=== PATIENT | female | born 1960 | race Caucasian/White ===

== ENCOUNTER 2020-05-01 14:41 | Emergency (ER) | payer OTHER, SELFPAY ==
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
[2020-05-01 14:51] VITALS: BP 140/82; PULSE 88; RESP 14; TEMP 36.6; O2SAT 100
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
== END 2020-05-01 16:00 | disposition home or self-care (01) ==
PROVIDERS: Emergency Provider Nurse Practitioner; PCP Internal Medicine
DX: S82.832A Other fracture of upper and lower end of left fibula, initial encounter for closed fracture (principal); V18.4XXA Pedal cycle driver injured in noncollision transport accident in traffic accident, initial encounter; F41.9 Anxiety disorder, unspecified; F32.9 Major depressive disorder, single episode, unspecified; K21.9 Gastro-esophageal reflux disease without esophagitis; E03.9 Hypothyroidism, unspecified; J45.909 Unspecified asthma, uncomplicated
CPT/HCPCS: 29515; 73610; 99214; G0463

== ENCOUNTER 2021-04-30 08:33 | Outpatient (CLI) | payer BC, SELFPAY ==
[2021-04-30 10:00] LABS: SARS-CoV-2 RNA PCR Negative (Negative)
== END 2021-04-30 08:34 | disposition home or self-care (01) ==
PROVIDERS: PCP Internal Medicine; Visit Provider Nurse Practitioner Pediatrics
DX: Z20.822 Contact with and (suspected) exposure to COVID-19 (principal)
CPT/HCPCS: C9803; U0003; U0005

== ENCOUNTER 2022-03-01 16:00 | Emergency (ER) | payer BC, SELFPAY ==
[2022-03-01 16:08] VITALS: BP 146/77; PULSE 89; RESP 16; TEMP 36.6; O2SAT 100
--- NOTE | 2022-03-01 16:13 | ED.SKABFB ---
HPI - Skin/Abscess/Foreign Bdy General Chief complaint: Skin/Abscess/Foreign Body Stated complaint: body rash Source: patient, RN notes reviewed and old records reviewed Mode of arrival: ambulatory Limitations: no limitations History of Present Illness HPI narrative: 61 year old female who presents to [facility] care with complaint of rash which was first noted on the 03 of January. Patient reports that she went on a medical mission trip from December 19- in [facility]. While in [facility] she took antimalaria drug Malarone which she took from to the 02 of January. She reports that is the third mission trip she has been on and the 3rd time she has been on Malarone and never with any problems previously. Patient reports that she broke out with rash on the 03 of January. Patient has been treated with Medrol dose pack and last was treated on the 04 of February with prednisone but once down to 10 mg daily the rash then reappeared on Monday. Patient has been taking Benadryl for the itching and has used triamcinolone ointment to rash.Patient denies any history of celiac disease. MD complaint: rash Onset (ago): week(s) (waxing and waning since 03 of January treated with medrol and prednisone) Location: generalized Treatments prior to arrival: Benadryl and other (triamcinolone ointment) Related Data Home Medications Medication Instructions Recorded Confirmed duloxetine 30 mg capsule,delayed 30 mg PO DAILY 05/01/20 03/01/22 release (Cymbalta) duloxetine 60 mg capsule,delayed 60 mg PO DAILY 05/01/20 03/01/22 release (Cymbalta) levothyroxine 100 mcg capsule 100 mcg PO DAILY 05/01/20 03/01/22 montelukast 10 mg tablet 10 mg PO DAILY 05/01/20 03/01/22 (Singulair) aspirin 81 mg capsule 81 mg PO DAILY 03/01/22 03/01/22 famotidine 20 mg tablet 20 mg PO DAILY 03/01/22 03/01/22 triamcinolone acetonide 0.1 % 0.1 applic topical DIRECTED 03/01/22 03/01/22 topical cream Allergies Allergy/AdvReac Type Severity Reaction Status Date / Time bupropion [From Wellbutrin] Allergy Rash Verified 05/01/20 15:09 carbamazepine [From Tegretol] Allergy BARBIE Verified 05/01/20 15:09 CHARI SYNDROME sulfamethoxazole Allergy Rash Verified 05/01/20 15:09 [From Bactrim] terbinafine [From Lamisil] Allergy Rash Verified 05/01/20 15:09 tramadol Allergy Dizziness Verified 05/01/20 15:09 trimethoprim [From Bactrim] Allergy Rash Verified 05/01/20 15:09 Review of Systems Review of Systems: CONSTITUTIONAL: Denies fever, chills, or sweats. EYES: Denies visual changes, redness, or discharge. ENT: Denies rhinorrhea, congestion, sore throat, or otalgia. CARDIOVASCULAR: Denies chest pain, palpitations, or edema. RESPIRATORY: Denies cough or dyspnea. GASTROINTESTINAL: Denies and pain, nausea, vomiting, or diarrhea. GENITOURINARY: Denies dysuria or hematuria. SKIN: Positive for red scattered blanchable rash with itching to trunk posterior upper legs, lower back MUSCULOSKELETAL: Denies back pain, joint pain, or myalgia. NEUROLOGIC: Denies headache, numbness, or weakness. PSYCHIATRIC: Positive for history of anxiety or depression. All systems reviewed & are unremarkable except as noted in HPI and below PMFSH Past Medical History Medical History (Updated 03/03/22 @ 13:13 by Judy Schultz NP) Anxiety Asthma Depression Hypothyroid Open fibular fracture surgical reduction Surgical History Surgical History History of appendectomy History of exploratory laparotomy bowel obstructin/ ileus Family History Family History Mother Hypertension Other Heart disease Social History Social History Smoking status: Never smoker Alcohol intake: current Alcohol use details: rare use Substance use type: does not use Living arrangements: with family Gender identity (if verbal
== END 2022-03-01 17:20 | disposition home or self-care (01) ==
PROVIDERS: Emergency Provider Registered Nurse; PCP Internal Medicine
DX: L25.9 Unspecified contact dermatitis, unspecified cause (principal); E03.9 Hypothyroidism, unspecified; J45.909 Unspecified asthma, uncomplicated; Z79.82 Long term (current) use of aspirin; F41.9 Anxiety disorder, unspecified; F32.A Depression, unspecified
CPT/HCPCS: 99213; G0463

== ENCOUNTER 2024-09-25 16:01 | Outpatient (CLI) | payer BC, SELFPAY ==
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
== END 2024-09-25 16:02 | disposition home or self-care (01) ==
PROVIDERS: Referring Provider Internal Medicine
DX: M25.551 Pain in right hip (principal)
CPT/HCPCS: 73070

== ENCOUNTER → 2024-11-13 14:17 | Outpatient (CLI) | payer BC, SELFPAY ==
--- NOTE | ~2024-11-13 | XR_ITS ---
EXAMINATION:XR cervical spine 4-5V DATE: 11/13/2024 15:00 INDICATION: Neck pain TECHNIQUE: AP, lateral, lateral swimmers and odontoid views of the cervical spine are provided. COMPARISON: None FINDINGS: Reversal of the normal cervical lordosis. 2 mm anterolisthesis C4 on C5 and one-2 mm anterolisthesis C3 on C4 and retrolisthesis C5 on C6. Odontoid is intact. Moderate osteoarthritis at the atlantoaxial articulation.. Vertebral body heights are normal. Mild disc height loss at C4-C5 and moderate disc h eight loss at C5-C6 and C6-C7. There is moderate to severe uncovertebral osteoarthritis at these leve ls. There is also severe cervical facet osteoarthritis most prominent on the right at C3-C4 and bilat erally at C4-C5 and C5-C6. There are large anterior endplate osteophytes at C6-C7. Prevertebral soft tissues are normal. IMPRESSION: 1. Moderate cervical spondylosis with moderate and severe cervical facet and uncovertebral osteoarthr itis. Reviewed, dictated and finalized at location B. IMPRESSION: 1. Moderate cervical spondylosis with moderate and severe cervical facet and un covertebral osteoarthritis.
--- OUTSIDE RECORDS SUMMARY | 2024-11-13 15:24 | XMS_ITS | Encounter Summary ---
Author Organization [facility] Address [address] [place] [address] Phone Care Team Providers Care Senior Database Administrator Name Role Phone Ab Miller MD Primary Care Provider Mert Addison MD Unavailable Ab Vega MD Unavailable Margoth Gunter MD Unavailable Reason for Visit * Reason Comments Medication Refill Encounter Details Date Type Department Care Team (Late st Contact Info) Description 12/12/2023 Refill [facility] [address] [place] [address] Ab Miller MD [address] [address] Medication Refill Social History Tobacco Use Types Packs/Day Years Used Date Smoking Tobacco: Never Smokeless Tobacco: Never Alcohol Use Standard Drinks/Week Comments Yes 0 (1 standard drink = 0.6 oz pur e alcohol) Rare [facility] Utilities Answer Date Recorded In the past 12 months has e electric, gas, oil, or water company threatened to shut off services in your home? No 10/02/2023 Social Connection and Isolat ion Panel [NHANES] Answer Date Recorded In a typical week, how many times do you talk on the phone with family, friends, or neighbors? More than three times a week 10/02/2023 How often do you get togethe r with friends or relatives? Twice a week 10/02/2023 How often do you attend chur or yazdanism services? More than 4 times per year 10/02/2023 Do you belong to any clubs o r organizations such as rastafarian groups, unions, fraternal or athletic groups, or school groups? Yes 10/02/2023 How often do you attend meet ings of the clubs or organizations you belong to? More than 4 times per year 10/02/2023 Are you , , di vorced, , never , or living with a partner? 10/02/2023 AUDIT-C Answer Date Recorded Q1: How often do you have a drink containing alc ohol? 2-4 times a month 10/02/2023 Q2: How many drinks containi ng alcohol do you have on a typical day when you are drinking? 1 or 2 10/02/2023 Q3: How often do you have si x or more drinks on one occasion? Never 10/02/2023 Overall Financial Resource Strain (CARDIA) Answe r Date Recorded How hard is it for you to pa y for the very basics like food, housing, medical care, and heating? Not hard at all 10/02/2023 PHQ-2 Answer Date Recorded Total Score - Questions 1-9 0 09/14 [facility] - Occupational Stress Questionnaire Answer Date Recorded Do you feel stress - tense, restless, nervous, or anxious, or unable to sleep at night because your mind is troubled all the time - these days? Not at all 10/02/2023 Exercise Vital Sign Answer Date Recorde d On average, how many days pe r week do you engage in moderate to strenuous exercise (like a brisk walk)? 3 days 10/02/2023 On average, how many minutes do you engage in exercise at this level? 40 min 10/02/2023 Hunger Vital Sign Answer Date Recorded Within the past 12 months, y ou worried that your food would run out before you got the money to buy more. Never true 10/02/19 24 Within the past 12 months, t he food you bought just didn't last and you didn't have money to get more. Never true 10/02/2023 PRAPARE - Transportation Answer Date Re corded In the past 12 months, has l ack of transportation kept you from medical appointments or from getting medications? No 09/14 In the past 12 months, has l ack of transportation kept you from meetings, work, or from getting things needed for daily living? No 10/02/2023 Housing Stability Vital Sign Answer Doug e Recorded In the last 12 months, was t here a time when you were not able to pay the mortgage or rent on time? No 10/02/2023 In the last 12 months, how many places have you lived? 1 10/02/2023 In the last 12 months, was t here a time when you did not have a steady place to sleep or slept in a fdc (including now)? No 10/02/2023 Education Answer Date Recorded What is the highest level of school you have completed or the highest degree you have received? 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 Requested Prescriptions Pending Prescriptions Disp Refills montelukast (SINGULAIR) 10 MG Tablet [Pharmacy Med Name: Montelukast Sodium 10 MG Oral Tablet] 90 Tablet 0 Sig: TAKE 1 TABLET BY MOUTH ONCE DAILY IN THE EVENING Leukotriene Inhibitors Protocol Passed - 12/12/2023 7:56 AM Passed - Visit with relevant provider in past 12 months or upcoming 90 days Recent Visits Date Type Provider Dept 10/06/23 Office Visit Josiane Loza APRN, [facility] 10/03/23 Office Visit [facility] 07/21/23 Office Visit Josiane Loza APRN, TAM[facility] 03/28/23 Office Visit Ab Miller MD [facility] Showing recent visits within past 365 days and meeting all other requirements Future Appointments No visits were found meeting these conditions. Showing future appointments within next 90 days and meeting all other requirements documented in this encounter Plan of Treatment Upcoming Encounters Date Type Department Care Team (Late st Contact Info) Description 04/04/2025 9:00 AM CDT Lab [facility] [address] [address] [facility] Lab/Ancillary 04/11/2025 11:00 AM CDT [facility] [place] [address] [place] [address] Ab Miller MD #[address] [address] documented as of this encounter Visit Diagnoses Not on filedocumented in this encounter Additional Health Concerns Infection Onset Date Last Indicated Resolved Time COVID - 19 07/28/2024 07/28/2024 07/28/2024 11:4 0 AM [employer] SAL[employer] Influenza 07/28/2024 07/28/2024 08/04/2024 12:1 6 AM [employer] SALESMAN Assessment Noted Time PHQ-9 Depression Total Score: 0 10/03/19 24 8:58 AM CDT documented as of this encounter Care Teams Senior Database Administrator Relationship Specialty Start Date End Date Ab Miller MD #[address] [address] PCP - General Family Medicine 08/28/19 Mert Addison MD #[address] [address] Gastroenterology 08/28/19 Ab Vega MD [address] [place] [address] [address] [place] [address] Family Medicine 08/30/19 Margoth Gunter MD [address] [facility] [address] [place] [address] Consulting Physician Orthopaedic Surgery 09/30/24 documented as of this encounter
--- OUTSIDE RECORDS SUMMARY | 2024-11-13 15:24 | XMS_ITS | Clinical Summary ---
Author Organization [facility] Address [address] [place] [address] Phone Care Team Providers Care Economist Research Assistant Name Role Phone Ab Miller MD Primary Care Provider [phone] Mert Addison MD Unavailable [phone] Ab Vega MD Unavailable Margoth Gunter MD Unavailable Allergies Active Allergy Reactions Criticality Noted Date Comments Sulfamethoxazole-Trimeth oprim Hives,Rash,Itching High 08/26/2019 Bupropion Other (see Comments) 11/29/2017 Cerner Allergy Text Annotation: buPROPion Skin rash Carbamazepine Shortness of Breath,Other (see Comments) High 08/26/2019 Tegretol/ sores all over body/ blood pressure/pino-j ohnson syndrome Esomeprazole Other (see Comments) 11/29/2017 Tongue numbness caused by red dye Fluoxetine Other (see Comments) 07/28/2024 Causes suicidal ideation Sulfa Antibiotics Unknown 08/28/2019 Terbinafine Other (see Comments) 11/29/2017 Cerner Allergy Text Annotation: terbinafine Skin rash Tramadol Nausea,Vomiting,Othe r (see Comments) High 08/26/2019 Severe headache Medications famotidine (PEPCID) 20 MG Tablet Take 20 mg by mouth daily. Active Multiple Vitamin (MULTI-VITAMIN PO) Take by mouth. Activ e B Complex Vitamins (VITAMIN B COMPLEX PO) Take by mouth. Act rigo vitamin E (TOCOPHEROL) 400 UNIT Capsule Take 400 Units by mouth daily. Active Calcium Carb-Cholecalci ferol (CALCIUM 600 + D PO) Take by mouth. Act rigo Coenzyme Q10 (CO Q-10) 100 MG Capsule Take by mouth. Acti ve Magnesium 500 MG Tablet Take by mouth. Activ e Probiotic Product (PRO-BIOTIC BLEND PO) Take by mouth. Activ e albuterol 108 (90 Base) MCG/ACT Aerosol Solution take 2 Puffs by inhalation every 4 hours as needed for Wheezing. 8 g 1 03/23/20 22 Active levothyroxine (SYNTHROID) 100 MCG Tablet Take 1 Tablet by mouth daily. 90 Tablet 3 04/08/20 24 Active montelukast (SINGULAIR) 10 MG Tablet TAKE 1 TABLET BY MOUTH ONCE DAILY IN THE EVENING 90 Tablet 2 04/15/20 24 Active albuterol (PROVENTIL, VENTOLIN) (2.5 MG/3ML) 0.083% Nebulizer Soln 2.5 mg by Nebulization route every 4 hours as needed for Wheezing or Shortness of Breath. 07/27/19 25 Active Cholecalciferol (Vitamin D3) 50 mcg Tablet Take 1 Tablet by mouth daily. Active DULoxetine (Cymbalta) [address] Particles Take 60 mg by mouth daily. Active DULoxetine (CYMBALTA) [address] Particles Take 30 mg by mouth nightly. Active escitalopram (LEXAPRO) 10 MG Tablet Take 1 Tablet by mouth daily. Active cetirizine (ZyrTEC Allergy) 10 MG Tablet Take 10 mg by mouth daily. Active Cyanocobalamin (B-12) 500 MCG Tablet Take 2,000 mcg by mouth daily. Active Wheat Dextrin (BENEFIBER PO) Take by mouth. Active metoclopramide (REGLAN) 10 MG Tablet Take 10 mg by mouth 3 times daily as needed for Nausea - 1st line. Active ibuprofen (MOTRIN) 600 MG Tablet Take 600 mg by mouth every 8 hours as needed for Mild or more severe pain. Active melatonin 3 MG Tablet Take 3 mg by mouth nightly as needed for Other (sleep). Active Clindagel 1 % Gel Apply daily as needed for Other (boils to groin). use thin film on affected area Active pseudoephedrine (Sudafed) 30 MG Tablet Take 30 mg by mouth every 6 hours as needed for Congestion. Active ciclopirox (LOPROX) 0.77 % Cream Apply 2 times daily as needed for Other (toe fungus). Application Site: toe fungus (Description and Location) Active apixaban (ELIQUIS) 5 MG TabletIndicatio ns:Atrial Fibrillation Take 1 Tablet by mouth 2 times daily. Indications: Atrial Fibrillation 180 Tablet 07/29/19 25 Active carvedilol (COREG) 3.125 MG Tablet Take 1 Tablet by mouth 2 times daily. 180 Tablet 07/29/19 25 Active methylPREDNISol one (MEDROL DOSPACK) 4 MG Tablet Therapy Pack Use as per instructions on package. 21 Tablet 10/01/19 25 Active atorvastatin (LIPITOR) 20 MG Tablet Take 1 tablet by mouth once daily 90 Tablet 1 10/22/19 25 Active cyclobenzaprine (FLEXERIL) 10 MG Tablet Take 1 Tablet by mouth 3 times daily as needed for Other (elbow pain) for up to 10 days. 30 Tablet 1 11/05/19 25 2024 Active atorvastatin (LIPITOR) 20 MG Tablet Take 1 tablet by mouth once daily 90 Tablet 1 04/26/20 24 2024 Discontinued Active Problems No known active problems Resolved Problems Problem Noted Date Diagnosed Date Resolved Date Hypoxia 07/28/2024 07/29/2024 Encounters Date Type Department Care Team Description 10/20/2024 Refill [facility] [address] [place] [address] Ab Miller MD Medication Refill 10/09/2024 9:00 AM CDT Office Visit [facility] [address] [place] [address] Ab Miller MD Paroxysmal atrial fibrillation (HCC) (Primary Dx); Pure hypercholesterolemia; Acquired hypothyroidism; Depression, unspecified depression type Discharge Disposition: Discharged to home or Selfcare 10/07/2024 Travel 09/30/2024 9:15 AM CDT Office Visit [facility] Orthopedic Surgery [facility] [address] [place] [address] Margoth Gunter MD Lateral epicondylitis of right elbow (Primary Dx); Elbow pain, right Discharge Disposition: Discharged to home or Selfcare 09/28/2024 Travel from Last 3 Months Immunizations Immunization Administration Dates Next Due COVID-19, MRNA, LNP-S, BIVAL ENT , PFIZER, 30 MCG/0.3 ML (12+ Y/O) 2022 Covid-19, Mrna, Lnp-s, Pf, 3 0 Mcg/0.3 Ml Dose (Pfizer) 07/29/2020,07/08/2020 Hepatitis A Vaccine 04/02/2021 Hepatitis A Vaccine,unspecified Formulation 03/18 Influenza Vaccine greater than 3 yrs 04/01/2019, 05/17/2015,04/25/2014 Influenza Vaccine, MDCK,quad rivalent, pres free 2022 Influenza Vaccine, Quadrivalent, PF 03/28/2023,1 Influenza, Seasonal, Injectable, Undefined 04/01,05/17/2015,04/25/2014 Influenza,Split Virus,Trivalent,Injectable,PF 04/08/2024 Pneumococcal Vaccine Adult - 23 Valent 9 Pneumococcal conjugate PCV20 , polysaccharide [id number] conjugate, adjuvant, PF 10/09/2024 RSV IMM GLOB IV 05/04/2023 RSV, Recombinant, Protein Francois bunit Rsvpref, Adjuvant Recon (Arexvy) 05/04/2023 Tetanus Vaccine 01/31/2012 Zoster Vaccine Recombinant 07/14/2023,05/04/2023 Family History Medical History Relation Name Comments Alcohol Abuse Brother Thyroid Disease Brother Parkinsonism Father Cancer Maternal Grandfather Cancer Maternal Grandmother Alzheimer's Disease Mother Heart Disease Mother Heart Surgery Mother Hypertension Mother Thyroid Disease Mother Cancer Paternal Grandfather No Known Problems Paternal Grandmother Thyroid Disease Sister 1 Thyroid Disease Sister 2 Relation Name Status Comments Brother Alive Father Maternal Grandfather Maternal Grandmother Mother Alive Paternal Grandfather Paternal Grandmother Sister 1 Alive Sister 2 Alive Social History Tobacco Use Types Packs/Day Years Used Date Smoking Tobacco: Never Smokeless Tobacco: Never Tobacco Cessation:Counseling Given: No Alcohol Use Standard Drinks/Week Comments Yes 0 (1 standard drink = 0.6 oz pur e alcohol) Rare [facility] Utilities Answer Date Recorded In the past 12 months has th e electric, gas, oil, or water company threatened to shut off services in your home? No 10/07/2024 Social Connection and Isolat ion Panel [NHANES] Answer Date Recorded In a typical week, how many times do you talk on the phone with family, friends, or neighbors? More than three times a week 10/07/2024 How often do you get togethe r with friends or relatives? More than three times a week 10/07/2024 How often do you attend chur ch or scientologist services? 1 to 4 times per year 10/07/2024 Do you belong to any clubs o r organizations such as druze groups, unions, fraternal or athletic groups, or school groups? Yes 10/07/2024 How often do you attend meet ings of the clubs or organizations you belong to? More than 4 times per year 10/07/2024 Are you , , di vorced, , never , or living with a partner? 10/07/2024 AUDIT-C Answer Date Recorded Q1: How often do you have a drink containing alc ohol? 2-4 times a month 10/07/2024 Q2: How many drinks containi ng alcohol do you have on a typical day when you are drinking? 1 or 2 10/07/2024 Q3: How often do you have si x or more drinks on one occasion? Less than monthly 10/07/2024 Overall Financial Resource Strain (CARDIA) Answe r Date Recorded How hard is it for you to pa y for the very basics like food, housing, medical care, and heating? Not hard at all 10/07/2024 PHQ-2 Answer Date Recorded Total Score - Questions 1-9 0 09/15 [facility] [place] of Occupat ional Health - Occupational Stress Questionnaire Answer Date Recorded Do you feel stress - tense, restless, nervous, or anxious, or unable to sleep at night because your mind is troubled all the time - these days? Only a little 10/07/2024 Exercise Vital Sign Answer Date Recorde d On average, how many days pe r week do you engage in moderate to strenuous exercise (like a brisk walk)? 1 day 10/07/2024 On average, how many minutes do you engage in exercise at this level? 40 min 10/07/2024 Hunger Vital Sign Answer Date Recorded Within the past 12 months, y ou worried that your food would run out before you got the money to buy more. Never true 10/08/19 25 Within the past 12 months, t he food you bought just didn't last and you didn't have money to get more. Never true 10/07/2024 PRAPARE - Transportation Answer Date Re corded In the past 12 months, has l ack of transportation kept you from medical appointments or from getting medications? No 09/15 In the past 12 months, has l ack of transportation kept you from meetings, work, or from getting things needed for daily living? No 10/07/2024 Housing Stability Vital Sign Answer Doug e [...] place to sleep or slept in a penitentiary (including now)? No 10/02/2023 Housing Stability Vital Sign Answer Doug e Recorded In the last 12 months, was t here a time when you were not able to pay the mortgage or rent on time? No 10/07/2024 In the past 12 months, how m any times have you moved where you were living? 0 10/07/2024 At any time in the past [facility], were you homeless or living in a penitentiary (including now)? No 10/07/2024 Education Answer Date Recorded What is the highest level of school you have completed or the highest degree you have received? 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 Not on file Not on file Last Filed Vital Signs Vital Sign Reading Time Taken Comments Blood Pressure 124/64 10/09/2024 9:19 AM CDT Pulse 71 10/09/2024 9:03 AM CDT Temperature 36.1 C (97 F) 10/09/2024 9:03 AM CDT Respiratory Rate 18 10/09/2024 9:03 AM CDT Oxygen Saturation 98% 10/09/2024 9:03 AM CDT Inhaled Oxygen Concentration - - Weight 103.9 kg (229 lb) 10/09/2024 9:03 AM CDT Height 170.2 cm (5' 7 ) 10/09/2024 9:03 AM CDT Body Mass Index 35.87 10/09/2024 9:03 AM CDT Plan of Treatment Upcoming Encounters Date Type Department Care Team (Late st Contact Info) Description 04/04/2025 9:00 AM CDT Lab [facility] #[address] [address] Lab [place] [facility]/Ancillary 04/11/2025 11:00 AM CDT Office Visit [facility] [place] [facility] [place] [address] Ab Miller MD #[address] [address] Health Maintenance Due Date Last Done Comments TdaP Immunization 1961 Cologuard 2011 Immunochemical Fecal Occult Blood 2011 SARS-COV-2 Immunization ( season) 2024 05/04/2023, 2022, 12/14/2021, Additional history exists Mammogram 12/03/2024 12/04/2023, 07/18, 07/20/2021, Additional history exists Colonoscopy 06/28/2026 06/28/2016, 06/21/2016 Colorectal Cancer Screening 06/28/2026 Pap Smear 10/05/2026 10/06/2023, 04/17, 05/10/2017 Cervical Cancer Screening (CCS) 10/05/2028 HPV/Cotest 10/05/2028 10/06/2023 06/21/2016 Hepatitis C Virus (HCV) Screening Completed 09/27/2022 Respiratory Syncytial Virus (RSV) Immunization (Adult) Completed 05/04/2023 Zoster Immunization Completed 07/14/2023, Influenza Immunization Completed 4, 03/28/2023, 2022, Additional history exists Pneumococcal Immunization (50+ years) Completed 10/09/2024, 04/08/2019 Pneumococcal Immunization Combined Discontinued 10/09/2024, 04/08/2019 Hepatitis B Immunization Aged Out No longer eligible based on patient's age to complete this topic Meningococcal Immunization (ACWY) Aged Out No longer eligible based on patient's age to complete this topic Rotavirus Immunization Aged Out No lo nger eligible based on patient's age to complete this topic Procedures Procedure Name Priority Date/Time Associated Diagnosis Comments XR - UPPER EXTREMITY 09/25/2024 12:00 AM CDT STEF SCREENING BILATERAL DIGITAL W CAD W MARC Routine 12/04/2023 2:59 PM CDT Visit for screening mammogram HUMAN PAPILLOMA VIRUS (HPV) Routine 10/06/2023 11:18 AM CDT Encounter for screening for human papillomavirus (HPV) PATHOLOGY CYTOLOGY FAMILY NURSE PRACTITIONER Routine 10/06/2023 11:18 AM CDT Screening for malignant neoplasm of cervix HEPATITIS PANEL ACUTE (AHP) Routine 09/27/2022 10:45 AM CDT Elevated LFTs HM COLONOSCOPY Routine 06/21/2016 from Last 3 Months or Most Recently Relevant to Health Maintenance Results * XR - UPPER EXTREMITY (09/25/2024 12:00 AM CDT) 09/25/2024 us Provider Scan IMG DIAGNOSTIC ORDERABLES Final Result SCAN * STEF SCREENING BILATERAL DIGITAL W CAD W MARC (12/04/2023 2:59 PM CDT) Anatomical Region Laterality Modality breast Bilateral Mammography 12/04/2023 3:14 PM CDT Narrative 12/05/2023 10:02 AM CDT - STEF SCREENING BILATERAL DIGITAL W CAD W MARC BILATERAL DIGITAL SCREENING MAMMOGRAM 3D/2D WITH CAD WITH MEDIOLATERAL OBLIQUE CRANIOCAUDAL: 12/04/2023 The study was acquired using digital technology and interpreted from soft copy. Current study was also evaluated with ICAD version 7.2. 2D digital mammographic views, as well as 3D digital tomosynthesis were performed in the CC and MLO projections. CLINICAL: Routine screening. Patient has no complaints. No personal history of cancer. Mother with postmenopausal breast cancer. Paternal aunt had breast cancer. COMPARISONS: Comparison is made to exams dated: 08/12/2022, 07/20/2021 [facility], and 07/04/2019 [facility]. BREAST TISSUE:There are scattered fibroglandular densities in both breasts. FINDINGS: No significant masses, calcifications, or other findings are seen in either breast. There has been no significant interval change. IMPRESSION: BI-RAD 1 NEGATIVE There is no mammographic evidence of malignancy. A 1 year screening mammogram is recommended. A letter will be sent to the patient with these results. The patient will be entered into a reminder system with a target due date of 1 year for her next screening exam. Electronically signed by: Leslye loyd/lauryn:12/04/2023 16:37:48 Metal Milling Machine Operator(s): RT Adina(R)(M), [facility] letter sent: Normal Exam Reading location: [facility] BI-RADS: 1 Negative Procedure Note Leslye Thomas MD - 12/05/2023 - STEF SCREENING BILATERAL DIGITAL W CAD W MARC BILATERAL DIGITAL SCREENING MAMMOGRAM 3D/2D WITH CAD WITH MEDIOLATERAL OBLIQUE CRANIOCAUDAL: 12/04/2023 The study was acquired using digital technology and interpreted from soft copy. Current study was also evaluated with ICAD version 7.2. 2D digital mammographic views, as well as 3D digital tomosynthesis were performed in the CC and MLO projections. CLINICAL: Routine screening. Patient has no complaints. No personal history of cancer. Mother with postmenopausal breast cancer. Paternal aunt had breast cancer. COMPARISONS: Comparison is made to exams dated: 08/12/2022, 07/20/2021 [facility], and 07/04/2019 [facility]. BREAST TISSUE:There are scattered fibroglandular densities in both breasts. FINDINGS: No significant masses, calcifications, or other findings are seen in either breast. There has been no significant interval change. IMPRESSION: BI-RAD 1 NEGATIVE There is no mammographic evidence of malignancy. A 1 year screening mammogram is recommended. A letter will be sent to the patient with these results. The patient will be entered into a reminder system with a target due date of 1 year for her next screening exam. Electronically signed by: Leslye loyd/lauryn:12/04/2023 16:37:48 Metal Milling Machine Operator(s): RT Adina(R)(M), [facility] letter sent: Normal Exam Reading location: [facility] BI-RADS: 1 Negative Ab Miller MD IMG MAMMO ORDERABLES Final Re sult * PATHOLOGY CYTOLOGY FAMILY NURSE PRACTITIONER (10/06/2023 11:18 AM CDT) SPECIMEN ADEQUACY Satisfactory for evaluation. Endocervical/transf ormation zone component is present. 10/17/2023 12:54 PM CDT [facility] DESCRIPTIVE DIAGNOSIS NEGATIVE FOR INTRAEPITHELIAL LESIONS OR MALIGNANCY. 10/17/2023 12:54 PM CDT [facility] at 1254 CDT Automated Examination Analysis of this sample has been assisted by an automated imaging and review system ([employer] Imaging System, [employer], [place], [place]). This case is further evaluated and finalized by a geologic technician and/or pathologist. 10/17/2023 12:54 PM CDT [facility] Disclaimer The PAP smear is a screening test designed to detect cancerous or precancerous cells of the uterine cervix. It is one of the best means available for detection of cervical cancer but still carries an inherent false-negative rate. The consequences of a false-negative PAP result can be minimized by adhering to current screening guidelines. The following are general guidelines recommended by the ACS, ASCP, ASCCP, and ACOG: PAP testing is recommended every three years for women 21-29, Co-Testing , a PAP test in conjunction with an HPV (Human Papillomavirus) test for women ages 30-65, and no PAP or HPV testing for women under the age of 21 or older than 65 unless clinically indicated. 10/17/2023 12:54 PM CDT [facility] Case Report Gynecologic Cytology Report Case: [id number] Authorizing Provider: Josiane Loza APRN, Collected: 10/06/2023 11:18 AM TAMMY Ordering Location: [facility] Medical [facility] Received: 10/06/2023 11:18 AM [facility] First Screen: Angelique Cisse Pathologist: Yassine Gray MD Specimen: TP Screen, Endocervix/Vaginal 10/17/2023 12:54 PM CDT [facility] Other (Endocervix/Vagi nal) Non-Phlebotomy Collection / Unknown 10/06/2023 11:18 AM CDT 10/06/2023 11:18 AM CDT us Josiane Loza APRN, CNP PATHOLOGY/CYTOLOGY O RDERABLES Final Result [facility] [address] [place] [address], * HUMAN PAPILLOMA VIRUS (HPV) (10/06/2023 11:18 AM CDT) HPV TYPE 16 NEGATIVE NEGATIVE 10/09/2023 2:03 PM CDT [facility] Comment: A negative high-risk HPV result does not exclude the possibility of future cytologic HSIL or underlying CIN2-3 or cancer. The presence of PCR inhibitors may cause false negative or invalid results. If concentrations of whole blood in the sample exceed 1.5% (dark red or brown coloration) in PreservCyt solution, there is a likelihood of obtaining a false-negative result. HPV TYPE 18 NEGATIVE NEGATIVE 10/09/2023 2:03 PM CDT [facility] Comment: A negative high-risk HPV result does not exclude the possibility of future cytologic HSIL or underlying CIN2-3 or cancer. The presence of PCR inhibitors may cause false negative or invalid results. If concentrations of whole blood in the sample exceed 1.5% (dark red or brown coloration) in PreservCyt solution, there is a likelihood of obtaining a false-negative result. HPV OTHER HIGH RISK TYPES, PCR NEGATIVE NEGATIVE 10/09/2023 2:03 PM CDT [facility] Comment: The following Other High Risk types were not detected: 31, 33, 35, 39, 45, 51, 52, 56, 58, 59, 66, and 68. A negative high-risk HPV result does not exclude the possibility of future cytologic HSIL or underlying CIN2-3 or cancer. The presence of PCR inhibitors may cause false negative or invalid results. If concentrations of whole blood in the sample exceed 1.5% (dark red or brown coloration) in PreservCyt solution, there is a likelihood of obtaining a false-negative result. HPV ORDER BE USED FOR SCREENING OR DIAGNOSTIC SCREENING 10/09/2023 2:03 PM CDT [facility] Other Non-Phlebotomy Collection / Unknown 10/06/2023 11:18 AM CDT 10/06/2023 11:18 AM CDT Narrative [facility] - 10/09/2023 2:03 PM CDT Performed by Real-Time Polymerase Chain Reaction (PCR) on the [employer] 4800. This assay has been validated for use with post-aliquot samples from the [employer] processor. us Josiane Loza APRN, CNP LAB SEND OUTS Jacqueline l Result [facility] [address] [place] [address], [facility] [address] [place] [address] * HEPATITIS PANEL ACUTE (AHP) (09/27/2022 10:45 AM CDT) HEPATITIS A IGM ANTIBODY NON DETECTED NON DETECTED [facility] [id number] 09/28/2022 2:06 AM CDT [facility] Comment: IGM Antibodies to HAV not detected. Does not exclude early acute or recovered HAV infection. HEP B CORE AB (IGM) NON DETECTED NON DETECTED [place] [id number] B 09/28/2022 2:06 AM CDT [facility] Comment:IGM anti-HBC not det ected. Does not exclude the possibility of exposure to or infection with HBV. HEPATITIS B SURFACE ANTIGEN NON DETECTED NON DETECTED [address] B 09/28/2022 2:06 AM CDT [facility] Comment:A nonreactive test r esult does not exclude the possibility of exposure to or infection with Hepatitis B virus. A nonreactive test result in individuals with prior exposure to hepatitis B may be due to antigen levels below the detection limit of this assay or lack of antigen reactivity to the antibodies in this assay. hepatitis C antibody 0.15 <1 S/CO [address] 09/28/2022 2:06 AM CDT [facility] Comment: Signal/Cutoff ratio < 0.79 is Nondetected Signal/Cutoff ratio 0.80-0.99 is Grayzone Signal/Cutoff ratio > 0.99 is Detected Supplemental assays are recommended if signal/cutoff ratio is >/=1.00. Signal/cutoff ratio result >/= 5.00 is 97% predictive of positivity for recombinant immunoblot assay (RIBA) and will be reported to the [place] Department of Public Health as required. Blood Venipuncture / Unknown 09/27/2022 10:45 AM CDT 09/27/2022 10:45 AM CDT us Ab Miller MD HEMATOLOGY ORDERABLES Final R esult [facility] [address] [place] [address], * COLONOSCOPY (06/21/2016) Mert Addison MD PROCEDURE/MINOR SURGICAL OR DERABLES Final Result from Last 3 Months or Most Recently Relevant to Health Maintenance Insurance [facility] Advance Directives * Full Code (Latest Code Status on File) Date Activated Date Inactivated Comments 07/28/2024 5:36 PM CPR-Full Treat ment: FULL ARREST: Attempt Resuscitation/CPR wit intubation and mechanical ventilation. PRE-ARREST: Use entire range of life support measures to stabilize the patient. Care Teams Economist Research Assistant Relationship Specialty Start Date End Date Ab Miller MD #2 [facility] [address] [place] [address] PCP - General Family Medicine 08/28/19 Mert Addison MD #2 [facility] [address] [place] [address] Gastroenterology 08/28/19 Ab Vega MD [address] [place] [id number] Family Medicine 08/30/19 Margoth Gunter MD #2 [facility] [address] [place] [address] Consulting Physician Orthopaedic Surgery 09/30/24
--- OUTSIDE RECORDS SUMMARY | 2024-11-13 15:24 | XMS_ITS | Encounter Summary ---
Author Organization [facility] Address [address] [place] [address] Phone Care Team Providers Care Maintenance Custodian Name Role Phone Ab Miller MD Primary Care Provider [phone] Mert Addison MD Unavailable Ab Vega MD Unavailable [phone] Margoth Gunter MD Unavailable Reason for Visit * Reason Comments Medication Refill Encounter Details Date Type Department Care Team (Late st Contact Info) Description 02/04/2023 Refill [facility] #2 [place] [id number] Ab Miller MD #[address] [address] Medication Refill Social History Tobacco Use Types Packs/Day Years Used Date Smoking Tobacco: Never Smokeless Tobacco: Never Alcohol Use Standard Drinks/Week Comments Yes 0 (1 standard drink = 0.6 oz pur e alcohol) Rare PHQ-2 Answer Date Recorded Total Score - Questions 1-9 0 09/14 Education Answer Date Recorded What is the highest level of school you have completed or the highest degree you have received? 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 Requested Prescriptions Pending Prescriptions Disp Refills atorvastatin (LIPITOR) 20 MG Tablet [Pharmacy Med Name: Atorvastatin Calcium 20 MG Oral Tablet] 90 Tablet 0 Sig: Take 1 tablet by mouth once daily Hmg CoA Reductase Inhibitors Protocol Passed - 02/04/2023 11:23 AM Passed - Visit with relevant provider in past 12 months or upcoming 90 days Recent Visits Date Type Provider Dept 09/27/22 Office Visit Ab Miller MD [facility] 03/23/22 Telemedicine Ab Miller MD [facility] Showing recent visits within past 365 days and meeting all other requirements Future Appointments Date Type Provider Dept 03/28/23 Appointment Ab Miller MD [facility] Showing future appointments within next 90 days and meeting all other requirements Passed - Lipid panel in past 12 months LDL Date Value Ref Range Status 09/27/2022 103 5 - 130 mg/dL Final HDL CHOLESTEROL Date Value Ref Range Status 09/27/2022 38.4 (L) >40 mg/dL Final CHOLESTEROL Date Value Ref Range Status 09/27/2022 174 <=200 mg/dL Final TRIGLYCERIDES Date Value Ref Range Status 09/27/2022 162 (H) <150 mg/dL Final VLDL Date Value Ref Range Status 09/27/2022 32 5 - 55 mg/dL Final CHOL/HDL RATIO Date Value Ref Range Status 09/27/2022 4.5 (H) 0.0 - 4.4 Final NON-HDL CHOLESTEROL Date Value Ref Range Status 09/27/2022 135.6 (H) <130 mg/dL Final Passed - CMP in past 12 months SODIUM Date Value Ref Range Status 11/18/2022 142 136 - 144 mmol/L Final POTASSIUM Date Value Ref Range Status 11/18/2022 3.5 3.5 - 5.1 mmol/L Final CHLORIDE Date Value Ref Range Status 11/18/2022 103 100 - 110 mmol/L Final CO2, VENOUS Date Value Ref Range Status 11/18/2022 26 22 - 32 mmol/L Final ANION GAP Date Value Ref Range Status 11/18/2022 16.5 8.0 - 20.0 mmol/L Final GLUCOSE Date Value Ref Range Status 11/18/2022 88 70 - 99 mg/dL Final BUN Date Value Ref Range Status 11/18/2022 25 (H) 8 - 23 mg/dL Final CREATININE, BLOOD Date Value Ref Range Status 11/18/2022 0.79 0.60 - 1.10 mg/dL Final BUN/CREATININE RATIO Date Value Ref Range Status 11/18/2022 32 (H) 12 - 20 ratio Final TOTAL PROTEIN Date Value Ref Range Status 11/18/2022 7.8 6.0 - 8.3 g/dL Final ALBUMIN Date Value Ref Range Status 11/18/2022 4.6 3.5 - 5.2 g/dL Final Comment: The colormetric methods used for the determination of Albumin may lead to falsely elevated test results in patients suffering from renal failure or insufficiency due to interference with other proteins. A/G RATIO Date Value Ref Range Status 11/18/2022 1.4 1.0 - 2.0 Final CALCIUM Date Value Ref Range Status 11/18/2022 10.6 (H) 8.9 - 10.3 mg/dL Final T BILI Date Value Ref Range Status 11/18/2022 0.4 <=1.2 mg/dL Final SGOT (AST) Date Value Ref Range Status 11/18/2022 19 <=32 U/L Final SGPT (ALT) Date Value Ref Range Status 11/18/2022 21 <=41 U/L Final ALKALINE PHOSPHATASE Date Value Ref Range Status 11/18/2022 99 35 - 105 U/L Final GFR, EST. NONAFRICAN Date Value Ref Range Status 11/18/2022 >60 >=60 Final GFR, EST. Date Value Ref Range Status 11/18/2022 >60 >=60 Final GFR, ESTIMATED Date Value Ref Range Status 11/18/2022 >60 >=60 Final Comment: Creatinine Clearance is the preferred criteria for selecting drug dose adjustments in renally impaired patients. The GFR is provided as additional pertinent clinical information. GFR is reported in mL/min/1.73 sq m. Calculation based on the Chronic Kidney Disease Epidemiology Collaboration (CKD- EPI) equation refitwithout adjustment for race. IS THE PATIENT REQUIRED TO BE FASTING? Date Value Ref Range Status 09/27/2022 No Final documented in this encounter Plan of Treatment Upcoming Encounters Date Type Department Care Team (Late st Contact Info) Description 04/04/2025 9:00 AM CDT Lab [facility] #[address] [address] [facility] Lab/Ancillary 04/11/2025 11:00 AM CDT Office Visit [facility] - [facility] Medicine - [place] #2 [place] [address] Ab Miller MD #[address] [address] documented as of this encounter Visit Diagnoses Not on filedocumented in this encounter Additional Health Concerns Infection Onset Date Last Indicated Resolved Time COVID - 19 07/28/2024 07/28/2024 07/28/2024 11:4 0 AM DUST BOX WORKER Influenza 07/28/2024 07/28/2024 08/04/2024 12:1 6 AM DUST BOX WORKER Assessment Noted Time PHQ-9 Depression Total Score: 0 09/28/19 9:00 AM CDT documented as of this encounter Care Teams Maintenance Custodian Relationship Specialty Start Date End Date Ab Miller MD #[address] [address] PCP - General Family Medicine 08/28/19 Mert Addison MD #2 [facility] [address] [place] [address] Gastroenterology 08/28/19 Ab Vega MD [address] [place] [address] [address] [place] [address] Family Medicine 08/30/19 Magroth Gunter MD #2 [place] [address] [place] [address] Consulting Physician Orthopaedic Surgery 09/30/24 documented as of this encounter
--- OUTSIDE RECORDS SUMMARY | 2024-11-13 15:24 | XMS_ITS | Encounter Summary ---
Author Organization [facility] Address [address] [place] [address] Phone Care Team Providers Care Social Services Technician Name Role Phone Ab Miller MD Primary Care Provider [phone] Mert Addison MD Unavailable Ab Vega MD Unavailable Margoth Gunter MD Unavailable Reason for Visit * Reason Comments Medication Refill Encounter Details Date Type Department Care Team (Late st Contact Info) Description 03/12/2023 Refill 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 Requested Prescriptions Pending Prescriptions Disp Refills DULoxetine (CYMBALTA) [address] Particles [Pharmacy Med Name: DULoxetine HCl 60 MG Oral Capsule Delayed Release Particles] 90 Capsule 1 Sig: Take 1 capsule by mouth once daily SNRI (6 Month Refill Only) Protocol Passed - 03/12/2023 11:15 PM Passed - Visit with relevant provider in past 6 months or upcoming 90 days Recent Visits Date Type Provider Dept 09/27/22 Office Visit Ab Miller MD [facility] Showing recent visits within past 182 days and meeting all other requirements Future Appointments Date Type Provider Dept 03/28/23 Appointment Ab Miller MD [facility] Showing future appointments within next 90 days and meeting all other requirements Passed - Has an encounter in the past 6 months with a depression or anxiety visit diagnosis Passed - Patient has established therapy with Serotonin-Norepinephrine Reuptake Inhibitors for at least 6 months DULoxetine (CYMBALTA) [address] Particles [Pharmacy Med Name: DULoxetine HCl 30 MG Oral Capsule Delayed Release Particles] 90 Capsule 1 Sig: Take 1 capsule by mouth once daily SNRI (6 Month Refill Only) Protocol Passed - 03/12/2023 11:15 PM Passed - Visit with relevant provider in past 6 months or upcoming 90 days Recent Visits Date Type Provider Dept 09/27/22 Office Visit Ab Miller MD [facility] Showing recent visits within past 182 days and meeting all other requirements Future Appointments Date Type Provider Dept 03/28/23 Appointment Ab Miller MD [facility] Showing future appointments within next 90 days and meeting all other requirements Passed - Has an encounter in the past 6 months with a depression or anxiety visit diagnosis Passed - Patient has established therapy with Serotonin-Norepinephrine Reuptake Inhibitors for at least 6 months Refused Prescriptions Disp Refills atorvastatin (LIPITOR) 20 MG Tablet [Pharmacy Med Name: Atorvastatin Calcium 20 MG Oral Tablet] 90 Tablet 1 Sig: Take 1 tablet by mouth once daily Hmg CoA Reductase Inhibitors Protocol Passed - 03/12/2023 11:15 PM Passed - Visit with relevant provider in [...] Value Ref Range Status 09/27/2022 No Final * Telephone Encounter - Radha Belcher RN - 03/13/2023 11:25 AM CDT Images from the original note were not included. Atorvastatin Calcium Dispensed Days Supply Quantity Provider Pharmacy ATORVASTATIN CALCIUM 20 MG TABS 02/06/2023 90 90 Tablet Josiane Loza APRN, CERTIFIED MEDICAL DOSIMETRIST [id number] ... documented in this encounter Plan of Treatment Upcoming Encounters Date Type Department Care Team (Late st Contact Info) Description 04/04/2025 9:00 AM CDT Lab [facility] #[address] [address] [facility] [place] Lab/Ancillary 04/11/2025 11:00 AM CDT Office Visit [facility] - [facility] - [place] #2 [place] [address] Ab Miller MD #[address] [address] documented as of this encounter Visit Diagnoses Not on filedocumented in this encounter Additional Health Concerns Infection Onset Date Last Indicated Resolved Time COVID - 19 07/28/2024 07/28/2024 07/28/2024 11:4 0 AM FARM EQUIPMENT MAINTENANCE SUPERVISOR Influenza 07/28/2024 07/28/2024 08/04/2024 12:1 6 AM FARM EQUIPMENT MAINTENANCE SUPERVISOR Assessment Noted Time PHQ-9 Depression Total Score: 0 09/28/19 23 9:00 AM CDT documented as of this encounter Care Teams Social Services Technician Relationship Specialty Start Date End Date Ab Miller MD #[address] [address] PCP - General Family Medicine 08/28/19 Mert Addison MD #[address] [address] Gastroenterology 08/28/19 Ab Vega MD [address] [place] [address] Family Medicine 08/30/19 Margoth Gunter MD #[address] [address] Consulting Physician Orthopaedic Surgery 09/30/24 documented as of this encounter
--- OUTSIDE RECORDS SUMMARY | 2024-11-13 15:24 | XMS_ITS | Encounter Summary ---
Author Organization [facility] Address [address] [place] [address] Phone Care Team Providers Care Bindery Worker Name Role Phone Ab Miller MD Primary Care Provider Mert Addison MD Unavailable Ab Vega MD Unavailable Margoth Gunter MD Unavailable Reason for Visit * Reason Comments Medication Refill Encounter Details Date Type Department Care Team (Late st Contact Info) Description 04/17/2023 Refill [facility] #2 [place] [phone] Ab Miller MD #[address] [address] Medication Refill Social History Tobacco Use Types [...] Sex Assigned at Female 09/12/2023 3:43 PM DIRECTOR CAMP Legal Sex Female 9:54 AM DIRECTOR CAMP Gender Identity Female 09/12/2023 3:43 PM DIRECTOR CAMP Sexual Orientation Straight 09/12/2023 3: 43 PM DIRECTOR CAMP 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 No / Unsure 03/27/2023 8:29 PM CDT documented as of this encounter Plan of Treatment Upcoming Encounters Date Type Department Care Team (Late st Contact Info) Description 04/04/2025 9:00 AM CDT Lab [facility] #[address] [address] [facility] Lab/Ancillary 04/11/2025 11:00 AM CDT Office Visit [facility] - [facility] - [facility] #2 [place] [address] Ab Miller MD #[address] [address] documented as of this encounter Visit Diagnoses Not on filedocumented in this encounter Additional Health Concerns Infection Onset Date Last Indicated Resolved Time COVID - 19 07/28/2024 07/28/2024 07/28/2024 11:4 0 AM DIRECTOR CAMP Influenza 07/28/2024 07/28/2024 08/04/2024 12:1 6 AM DIRECTOR CAMP Assessment Noted Time PHQ-9 Depression Total Score: 0 09/28/19 23 9:00 AM CDT documented as of this encounter Care Teams Bindery Worker Relationship Specialty Start Date End Date Ab Miller MD #[address] [address] PCP - General Family Medicine 08/28/19 Mert Addison MD #2 [facility] [address] [place] [address] Gastroenterology 08/28/19 Ab Vega MD [address] [place] [address] [address] [place] [address] Family Medicine 08/30/19 Margoth Gunter MD [facility]2 [facility] [address] [place] [address] Consulting Physician Orthopaedic Surgery 09/30/24 documented as of this encounter
--- OUTSIDE RECORDS SUMMARY | 2024-11-13 15:25 | XMS_ITS | Encounter Summary ---
Author Organization [facility] Address [address] [place] [address] Phone Care Team Providers Care Occupational Physician Name Role Phone Ab Miller MD Primary Care Provider [phone] Mert Addison MD Unavailable Ab Vega MD Unavailable Margoth Gunter MD Unavailable Reason for Visit * Reason Comments Medication Refill Encounter Details Date Type Department Care Team (Late st Contact Info) Description 12/15/2020 Refill [facility] #2 [place] [phone] Ab Miller MD #[address] [address] Medication Refill Social History Tobacco Use Types Packs/Day Years Used Date Smoking Tobacco: Never Smokeless Tobacco: Never Alcohol Use Standard Drinks/Week Comments Yes 0 (1 standard drink = 0.6 oz pur e alcohol) Rare PHQ-2 Answer Date Recorded Total Score - Questions 1-9 0 08/18 Education Answer Date Recorded What is the highest level of school you have completed or the highest degree you have received? 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 No / Unsure 12/12/2020 11:46 AM CDT documented as of this encounter Miscellaneous Notes * Telephone Encounter - Radha Belcher RN - 12/16/2020 3:41 PM CDT The original prescription was reordered on 12/16/2020 by Ab Miller MD documented in this encounter Plan of Treatment Upcoming Encounters Date Type Department Care Team (Late st Contact Info) Description 04/04/2025 9:00 AM CDT Lab [facility] #[address] [address] Lab [place] Lab/Ancillary 04/11/2025 11:00 AM CDT Office Visit [facility] - Family Medicine - [place] #2 [place] [address] Ab Miller MD #[address] [address] documented as of this encounter Visit Diagnoses Not on filedocumented in this encounter Additional Health Concerns Infection Onset Date Last Indicated Resolved Time COVID - 19 07/28/2024 07/28/2024 07/28/2024 11:4 0 AM PIPE SUPERVISOR Influenza 07/28/2024 07/28/2024 08/04/2024 12:1 6 AM PIPE SUPERVISOR Assessment Noted Time PHQ-9 Depression Total Score: 0 09/09/19 9:07 AM PIPE SUPERVISOR documented as of this encounter Care Teams Occupational Physician Relationship Specialty Start Date End Date Ab Miller MD #2 [facility] [address] [place] [address] PCP - General Family Medicine 08/28/19 Mert Addison MD #2 [facility] [address] [place] [address] Gastroenterology 08/28/19 Ab Vega MD [address] [place] [address] Family Medicine 08/30/19 Margoth Gunter MD #2 [facility] [address] [place] [address] Consulting Physician Orthopaedic Surgery 09/30/24 documented as of this encounter
--- OUTSIDE RECORDS SUMMARY | 2024-11-13 15:25 | XMS_ITS | Continuity of Care Document ---
Author Organization [facility] Address [address] [place] [address] Phone Care Team Providers Care Poultryman Name Role Phone Immunization, [facility] Unavailable Unavailable Procedures Procedure Date HEP A VACCINE ADULT IM IMMUNIZATION ADMIN PNEUMOCOCCAL VACCINE 23-V 2/> YR SUBQ/IM IMMUNIZATION ADMIN EACH ADD TYPHOID VACCINE IM IMMUNIZATION ADMIN EACH ADD TRAVEL IMM CONSULTATION Advance Directives Directive Yes / No Effective Date File Name No Information Encounters Encounter Description Practice Location Reason(s) For Visit Diagnoses Date Provider Providers Copied on Encounter [facility], [address] [place] [address], [id number], tel:[phone] [facility] Imms Travel No Information 9 Immunization [facility]. [address] [place] [address], [id number]. tel:[phone] TRAVEL IMM CONSULTATION [facility], [address] [place] [address], [id number], [place] tel:[phone] [facility] Imms Travel No Information 9 Immunization [facility]. [address] [place] [address], [id number]. tel:[phone] Family History Family Member Type Diagnosis Age At Onset No Information Payers Payer name Insurance type Covered alliance party ID Authoriza tiheidi(s) [facility] [id number] Social History Type Description Quantity Date Captured Comments Sex Female Smoking Status No Information Chief Complaint And Reason For Visit No Information Reason For Referral Reason For Referral No Information History Of Present Illness Encounter Date Complaint History Of Prese nt Illness No Information Functional Status Date Functional Assessmen t No Information Instructions Date Instruction Additional Infor mation No Information Assessments Type Assessment Date No Information Patient Care Teams Name Effective Dates (start - stop) Status Members No Information
--- OUTSIDE RECORDS SUMMARY | 2024-11-13 15:25 | XMS_ITS | Data Portability ---
Author Organization [employer] , [facility] Address [address] [place] [address] Assessment No assessment recorded. Plan of Treatment Reminders Order Date Submit Date Provider Last Modified By Organization Details Last Modified Time Details Appointments None recorded. Lab None recorded. Referral None recorded. Procedures None recorded. Surgeries None recorded. Imaging US, doc al 2021 022 [facility] (Radiology), [address] [place], [address], 19:15:07 DEXA 2021 022 [facility] (Radiology), [address] [place], [address], 2 12:55:01 Medication Orders gabapentin 100 mg capsule 2021 022 [facility] [place], [address], 16:07:41 Patient TargetsNo targets recorded. Patient InstructionsNo instructions recorded. Reason for Referral None Reported. Results Created Date Observation Date Name Description Value Unit Range Abnormal Flag Note LastModifiedBy Organization Detail LastModifiedTime 09/30/1909/29/2021 US, trans topher al No observ ation record ed. [email or web address] [address], [place], [address], 09/30/2021 14:02:06 Result Notes None recorded. Problems Name Problem SNOMED Code Status Onset Date Resolution Date Notes Provider Name and Address Organization Details Recorded Time Sampling of vagina for Papanicol aou smear Completed 201909/29/2021 Encounter for gynecologi tamera examinatio n (general) (routine) without abnormal findings; Severity: Moderate Progress: Stable Added By: Charity Flores Add to Current Problems: YES ProblemSta tus: Current Dolores Casanova null, [employer] [facility] 15:29:58 Problem Notes None recorded. Procedures Surgical History Date Name Laterality Status Provider Name and Address Organization Details Recorded Time 07/20/19 22 Most Recent Mammogram completed [facility] 09/15/2021 16:24:03 05/05/20 21 Date of Last Pap Smear completed [facility] 09/15/2021 16:24:03 Endometrial Ablation completed [facility] 09/15/2021 16:24:03 Appendectomy completed [facility] 09/15/2021 16:24:03 Imaging Results Imaging Date Name Status LastModified by Organization Details LastModified Time 09/29/2021 US, transvaginal completed [email or web address] [address], [place], [address], 09/30/2021 14:02:06 Procedure Notes None recorded. Medical Equipment None Reported. Allergies Allergen ID Allergen Name Allergen Category Reaction Reaction Severity Criticality Documentation Date Start Date Code Code System Note Provider Name and Address Organization Details Recorded Time 807357 Bactrim medicatio n Not available Not available Not available 05/07/20212019 11913 9 RxNorm Sever ity: Moder ate; Not Available [facility] 01:05:10 875695 Lamisil medicatio n Not available Not available Not available 05/07/20212019 59634 6 RxNorm Sever ity: Moder ate; Not Available [facility] 01:05:10 022053 Tegretol medicatio n Not available Not available Not available 05/07/20212019 9 RxNorm Sever ity: Moder ate; Not Available [facility] 01:05:10 778581 Wellbutri n medicatio n Not available Not available Not available 05/07/20212019 64540 RxNorm Sever ity: Moder ate; Not Available [facility] 01:05:10 Medications Name Sig Start Date Stop Date Status Note LastModified by Organization Details LastModified Time atorvasta tin 20 mg tablet TAKE 1 TABLET BY MOUTH ONCE DAILY active Not Available Not Available No t Available ketoconaz ole 2 % shampoo SHAMPOO TOPICALL Y TO AFFECTED AREAS AND LET SIT FOR 10 MINUTES THEN RINSE OFF active Not Available Not Available No t Available azithromy sammie 250 mg tablet TAKE DIRECTED active Not Available Not Available No t Available fluconazo le 150 mg tablet 09/15 completed Not Available Not Available Not Available fluconazo le 200 mg tablet TAKE 2 TABLETS BY MOUTH ONCE A WEEK. STOP ATORVAST ATIN WHILE ON THIS MEDICATI ON 09/29 completed Not Available Not Available Not Available atovaquon e 250 mg-progua nil 100 mg tablet 09/29 completed Not Available Not Available Not Available ciproflox acin 500 mg tablet active Not Available Not Available No t Available levothyro xine 100 mcg tablet TAKE 1 TABLET BY MOUTH ONCE DAILY active Not Available Not Available No t Available dicyclomi ne 20 mg tablet TAKE 1 TABLET BY MOUTH EVERY 6 HOURS NEEDED 09/29 completed Not Available Not Available Not Available nystatin- triamcino lone 100,000 unit/g-0. 1 % topical cream APPLY TOPICALL Y TO AFFECTED AREAS TWICE DAILY (ONCE IN THE MORNING AND ONCE IN THE EVENING) 09/29 completed Not Available Not Available Not Available monteluka st 10 mg tablet TAKE 1 TABLET BY MOUTH ONCE DAILY IN THE EVENING active Not Available Not Available No t Available diclofena c sodium 50 mg tablet,de layed release 09/15 completed Not Available Not Available Not Available gabapenti n 100 mg capsule TAKE 1 CAPSULE BY MOUTH ONCE DAILY ONE HOUR BEFORE BEDTIME. CAN INCREASE TO 2 CAPSULES OR 3 CAPSULES ONE HOUR BEFORE BEDTIME NEEDED FOR NIGHT SWEATS active Not Available Not Available No t Available metoclopr amide 10 mg tablet TAKE 1 TABLET BY MOUTH 4 TIMES DAILY NEEDED FOR NAUSEA active Not Available Not Available No t Available duloxetin e 30 mg capsule,d elayed release TAKE 1 CAPSULE BY MOUTH ONCE DAILY active Not Available Not Available No t Available duloxetin e 60 mg capsule,d elayed release TAKE 1 CAPSULE BY MOUTH ONCE DAILY active Not Available Not Available No t Available Singulair active Singulai r RxNorm: 006772 Refill Denied: No Refill DateOccu rred: 05/11/20 Edited by: pgillila nd(Gilli land, Charity ) on 05/11/20 Stopped by: pgillila nd(Gilli land, Charity ) on Not Available Not Available Not Available omeprazol e (bulk) 09/29 completed omeprazo le (bulk) RxNorm: [id number] Refill Denied: No Refill DateOccu rred: 05/11/20 Edited by: pgillila nd(Gilli land, Charity ) on 05/11/20 Stopped by: pgillila nd(Gilli land, Charity ) on Not Available Not Available Not Available Loratadin e-D active Loratadi ne-D Refill Denied: No Refill DateOccu rred: 05/11/20 Edited by: pgillila nd(Gilli land, Charity ) on 05/11/20 Stopped by: pgillila nd(Gilli land, Charity ) on Not Available Not Available Not Available levothyro xine (bulk) 09/29 completed levothyr oxine (bulk) RxNorm: [id number] Refill Denied: No Refill DateOccu rred: 05/11/20 Edited by: pgillila nd(Gilli land, Charity ) on 05/11/20 20 Stopped by: pgillila nd(Gilli land, Charity ) on Not Available Not Available Not Available duloxetin e HCl (bulk) 09/15 completed DULoxeti ne HCl (bulk) RxNorm: 770432 Refill Denied: No Refill DateOccu rred: 05/11/20 Edited by: pgillila nd(Gilli land, Cahrity ) on 05/11/20 20 Stopped by: pgillila nd(Gilli land, Charity ) on Not Available Not Available Not Available Vitals Date Recorded Body height Body mass index (BMI) Body weight Body temperature Systolic blood pressure Diastolic blood pressure Provider Name and Address Organization Details Last Updated DateTime 2 170.18 cm 34.5 kg/m2 88177.3 2 g 97.8 [degF] 130 mm[Hg] 90 mm[Hg] Stephanie Weaver [facility] 2 16:27:02 Date Recorded Body height Provider Name an d Address Organization Details Last Updated DateTime 09/29/2021 170.18 cm Dolores Casanova [facility] [employer] [facility] 09/29/2021 15:28:58 Date Recorded Body mass index (BMI) Body weight Body temperature Systolic blood pressure Diastolic blood pressure Provider Name and Address Organization Details Last Updated DateTime 2 34.3 kg/m2 42021.7 3 g 97 [degF] 122 mm[Hg] 70 mm[Hg] Elda Sellers [place] [employer] [facility] 2 15:43:11 Social History Question Answer Notes LastModified by [employer] Details LastModified Time Tobacco Smoking Status Never Smoker Stephanie Weaver [facility], [facility] 09/15/2021 16:24:03 What Is Your Level Of Alcohol Consumption? Occasional Information not available 09/15/2021 How Many Years Have You Consumed Alcohol? 30 Information not available 09/15/2021 What Type Of Diet Are You Following? SPECIFIC Information not available 09/15/2021 Which Illicit Or Recreational Drugs Have You Used? Prescription Pills Information not available 09/15/2021 Do You Or Have You Ever Used E-cigarettes Or Vape? Never Used Electronic Cigarettes Information not available 09/15/2021 What Is Your Relationship Status? Information not available 09/15/2021 Are You Sexually Active? No Information not available 09/15/2021 Sex: Unknown Functional Status Question Answer Note LastModified by Organizat ion Details LastModified Time What is your exercise level? Occasional Information not available 09/15/2021 Mental Status None recorded. Family History Relationship Description Onset Age of this Age Resolved Age Notes LastModified by Organization Details LastModified Time Paternal Grandfather Malignant neoplastic disease Not available 2021 16:24:02 Maternal Grandmother Malignant neoplastic disease Not available 2021 16:24:02 Maternal Grandmother Malignant tumor of colon Not available 2021 16:24:02 Mother Hypertensive disorder Not available 2021 16:24:02 Mother Myocardial infarction Not available 09/15 16:24:02 Mother Malignant neoplastic disease Not available 2021 16:24:02 Mother Hypothyroidi sm Not available 2021 16:24:02 Mother Malignant tumor of breast Not available 2021 16:24:02 Mother Heart disease Not available 2021 16:24:02 Mother Hypercholest erolemia Not available 2021 16:24:02 Brother Malignant neoplastic disease Not available 2021 16:24:02 Brother Hypercholest erolemia Not available 2021 16:24:02 Brother Hypothyroidi sm Not available 2021 16:24:02 Brother Hypertensive disorder Not available 2021 16:24:02 Brother Heart disease Not available 2021 16:24:02 Sister Hypertensive disorder Not available 2021 16:24:02 Sister Malignant neoplastic disease Not available 2021 16:24:02 Sister Hypothyroidi sm Not available 2021 16:24:02 Father Malignant neoplastic disease Not available 2021 16:24:02 Unspecified Relation Malignant tumor of breast Not available 2021 16:24:02 Unspecified Relation Hypothyroidi sm Not available 2021 16:24:02 Maternal Grandfather Malignant neoplastic disease Not available 2021 16:24:02 Medical History Condition Response Hypothyroidism Y Anxiety Disorder Y High Cholesterol Y GERD (reflux) Y Fibroids Y Asthma Y Gynecological History Statement/Question Response Date of Last Pap Smear 05/05/2021 Most Recent Mammogram 07/20/2021 Age at Menarche 15 Date of LMP 02/28/2015 Obstetrics History GPAL:G 4 P 4 0 0 0 Type Value Full Term 4 Total 4 Past Encounters Encounter ID Performer Location Encounter Start Date Encounter Closed Date Diagnosis/Indication Diagnosis SNOMED-CT Code Diagnosis ICD10 Code Diagnosis Note [id number] Nadeen Mahmood MD [facility] [address] [place] [address] 09/15/2021 15:34:10 09/16/2021 12:58:39 Pain in pelvis 05239901 R10.2 Pelvic masses seen on recent CT, likely fibroids. Recommende d f/u in 1-2 weeks for pelvic u/s for further evaluation . Patient will also try to find CT report from 2014 for comparison to evaluate for growth of fibroids over time. Screening for osteoporosis 733623740 Z13.456 [id number] Nadeen Mahmood MD [facility] [address] [place] [address] 09/29/2021 14:55:27 09/29/2021 16:11:59 Pain in pelvis 41859133 R10.2 Pelvic masses seen on recent CT, likely fibroids. Recommende d f/u in 1-2 weeks for pelvic u/s for further evaluation . Patient will also try to find CT report from 2014 for comparison to evaluate for growth of fibroids over time. Menopausal symptom 26906 002 N95.1 C/o night sweats. Discussed possible treatment options, including HRT, SSRIs, gabapentin . Pt interested in trying gabapentin , Rx sent. F/u PRN. Health Concerns Section Related Observation LastModified by Organization Detai ls LastModified Time None Recorded Concern Status LastModified by Organization Details LastModified Time None Recorded Advance Directives Directive None Recorded Payers Encounter Date Sequence Insurance Name Policy Number Policy Mora Covered Member ID Mora Member ID Guarantor Name 09/15/2021 1 [employer] [id number] Fabiana Carney [id number] Fabiana Carney 09/29/2021 1 [employer] [id number] Fabiana Carney [id number] Fabiana Carney Notes Date Note Type Note Provider Name and Address Organization Details Recorded Time 09/15/2021 text/html Pelvic PainReported bypatient.Location :right Associated Symptoms:abdominal pain;back pain;nausea Mirian is here for constulation regarding a pelvic mass. She reports that she had a CT on 08/06/21 at [facility] for c/o abdominal pain, constipation, and nausea. CT report on patient's phone, showed a 3.2cm exophytic uterus mass as well as a 5.4cm fundal mass, likely fibroids. She reports her symptoms have since resolved with magnesium citrate for constipation. She was instructed to follow up with [employer] due to CT findings. Mirian also reports that in April 2021, she had an episode of severe RLQ abd pain, 7-8/10. She reports the pain resolved spontaneously, but has reoccurred, less severe, on and off for at least one year. Wondering if this pain is due to the suspected fibroids seen on CT. She states she had a prior CT at [facility] in approximtely 2014 for other GI complaints, no report available at this time. Nadeen Mahmood MD [facility] [facility], [place], [address], [facility] 10/09/2021 21:05:54 09/29/2021 text/html Pelvic PainReported bypatient.Location :right Onset/Timing:>6 months Duration:intermitt ent Quality:sharp; cramping; like menstrual cramps Associated Symptoms:back pain;constipation Mirian is here for constulation regarding a pelvic mass. She reports that she had a CT on 08/06/21 at [facility] for c/o abdominal pain, constipation, and nausea. CT report on patient's phone, showed a 3.2cm exophytic uterus mass as well as a 5.4cm fundal mass, likely fibroids. She reports her symptoms have since resolved with magnesium citrate for constipation. She was instructed to follow up with [employer] due to CT findings. Mirian also reports that in April 2021, she had an episode of severe RLQ abd pain, 7-8/10. She reports the pain resolved spontaneously, but has reoccurred, less severe, on and off for at least one year. Wondering if this pain is due to the suspected fibroids seen on CT. She states she had a prior CT at [facility] in approximtely 2014 for other GI complaints, no report available at this time. Mirian also c/o night sweats, asking about possible treatment options for this. Nadeen Mahmood MD [address] [facility], [place], [address], [facility] 10/09/2021 21:03:14 OBGyn Episode No OBEpisode recorded.
--- OUTSIDE RECORDS SUMMARY | 2024-11-13 15:25 | XMS_ITS | Clinical Summary ---
Author Organization [facility] Address [address] [place] [address] Care Team Providers Care Real Estate Intern Name Role Phone Ab Miller MD Primary Care Provider [phone] Patito Richey DO Unavailable [phone] Source Comments [facility],non-owned Affiliates and Associated Physician Practices is amultiple site organization consisting of ambulatory clinics and hospital sitesin [place], [place], [place] and [place]. This disclosure is being madepursuant to the Care Everywhere program and may not contain all information available regarding this patient. Last updated 18.[facility] Allergies Active Allergy Reactions Criticality Noted Date Comments Bupropion Rash,Drug Reaction with Eosinophilia and Systemic Symptoms (DRESS) High 11/29/2017 Carbamazepine Shortness of Breath,Rash,Angulo Seven Syndrome (SJS),Drug Reaction with Eosinophilia and Systemic Symptoms (DRESS) High 11/29/2017 Tegretol/ sores all over body/ blood pressure Fluoxetine Psychiatric Medium 05/29/2024 Suicidal ideation. Sulfamethoxazole W-Trimethoprim Urticaria,Rash,Itchi ng High 11/29/2017 difficulty swallowing Terbinafine Rash Medium 03/05/2024 Tramadol Urticaria,Nausea and/or Vomiting,Vomiting,Dr ug Reaction with Eosinophilia and Systemic Symptoms (DRESS) High 11/29/2017 Medications * Be aware that medications may not be up to date on this document. Alwaysverify current medications with the patient. Loratadine 10 MG once daily Active Calcium Carbonate (CALCIUM 600 PO) Take 600 mg by mouth once daily Active montelukast (SINGULAIR) 10 MG tablet Take 1 (one) tablet by mouth at bedtime 06/05/20 19 Active levothyroxine (SYNTHROID) 100 MCG tablet Take 1 (one) tablet by mouth daily before breakfast Active famotidine (Pepcid) 20 MG tablet Take 1 (one) tablet by mouth once daily Active vitamin E (TOCOPHERYL) 100 UNIT capsule Take by mouth once daily Active ketoconazole (NIZORAL) 2 % shampoo Apply to affected area once daily as needed 01/16/20 20 Active Flaxseed, Linseed, (Flax Seeds) POWD Take flax seed powder as needed to maintain bowel motiltiy. 425 g 04/19/20 22 Active Eliquis 5 MG tablet Take 1 tablet by mouth twice daily 180 tablet 3 02/28/20 24 Active vitamin B-12 (Cyanocobalami n) 500 MCG tablet 1 tablet Orally Once a day Active docusate sodium (Colace) 100 MG capsule 1 capsule as needed Orally Once a day Active hydrOXYzine HCl (Atarax) 10 MG tablet Take 1 (one) tablet by mouth as needed 01/30/20 24 Active melatonin 5 MG tablet Take 1 (one) tablet by mouth at bedtime Active DULoxetine (Cymbalta) 60 MG capsule Take 1 (one) capsule by mouth once daily In am Active DULoxetine (Cymbalta) 30 MG capsule Take 1 (one) capsule by mouth at bedtime 03/08/20 24 Active escitalopram (Lexapro) 5 MG tablet Take 1 (one) tablet by mouth at bedtime 03/08/20 24 Active B Complex-C (VITAMIN B + C COMPLEX PO) Take 1 tablet by mouth once daily Active Vitamin D3, cholecalcifero l, 50 MCG (2000 UT) tablet Take 1 (one) tablet by mouth once daily Active carvedilol (Coreg) 6.25 MG tablet Take 1 (one) tablet by mouth 2 times daily 180 tablet 3 05/29/20 24 Active atorvastatin (Lipitor) 40 MG tablet Take 1 (one) tablet by mouth once daily 90 tablet 3 05/29/20 24 Active escitalopram (Lexapro) 10 MG tablet Take 1 (one) tablet by mouth once daily Active estradiol (Estrace) 0.1 MG/GM vaginal cream Insert 1 g into the vagina at bedtime Nightly for two weeks, then two nights a week 42.5 g 11 07/16/20 24 Active albuterol HFA (Proventil; Ventolin; Proair) 108 (90 Base) MCG/ACT inhaler Inhale 2 (two) puffs by mouth every 6 hours as needed Active Symbicort 80-4.5 MCG/ACT inhaler INHALE 2 PUFFS IN THE MORNING FOR 2 WEEKS 08/14/19 25 Active doxycycline hyclate (Vibramycin) 100 MG capsule Take 1 (one) capsule by mouth every 12 hours Active lubiprostone (Amitiza) 24 MCG capsule Take 1 capsule by mouth twice daily 60 capsule 11 11/08/19 25 Active lubiprostone (Amitiza) 24 MCG capsule Take 1 capsule by mouth twice daily 60 capsule 10/05/19 25 025 Discontinued Active Problems Problem Noted Date Diagnosed Date Sleep apnea, unspecified 05/16/2023 Snoring 05/16/2023 Malaise and fatigue 05/16/2023 Hypersomnia 05/16/2023 Atrial fibrillation 05/16/2023 Adult onset hypothyroidism 04/19/2022 Allergic rhinitis 04/19/2022 Acne 04/19/2022 Depression 04/19/2022 Dermatomycosis 04/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 Dysphagia 04/19/2022 Exercise-induced asthma 04/19/2022 GERD (gastroesophageal reflux disease) Palpitations 04/19/2022 Class 2 obesity due to exces s calories without serious comorbidity with body mass index (BMI) of 35.0 to 35.9 in adult 04/19/2022 Migraine 04/19/2022 Hyperlipidemia LDL goal <100 04/19/2022 Hemorrhoids, internal 04/19/2022 Heat rash 04/19/2022 Vitamin D deficiency 04/19/2022 Anxiety 04/17/2019 Right lower quadrant abdominal pain 04/17/2019 Acute laryngotracheitis 09/18/2018 Acute right-sided low back pain without sciatica 09/18/2018 Encounter for long-term (current) use of medicat ions 11/29/2017 Tinea versicolor 11/29/2017 Abnormal laboratory test result 08/31/2016 Failure to thrive in adult 07/12/2016 Nausea and vomiting 07/12/2016 Weight loss 07/12/2016 Post-operative pain Syndesmotic ankle sprain, left, initial encounte r Closed displaced fracture of lateral malleolus of left fibula Resolved Problems Problem Noted Date Diagnosed Date Resolved Date Constipation 07/12/2016 05/17/2022 Encounters Date Type Department Care Team Description 11/07/2024 Refill [facility] [address] [place] [address] Nerissa Mcgraw MD Refill Request 10/04/2024 Refill [facility] [address] [place] [phone] Nerissa Mcgraw MD Refill Request 08/21/2024 2:30 PM LEGAL BILLING ANALYST Office Visit [facility] - Pulmonology [address] [place] [phone] Brady Bai DO Asthma, unspecified asthma severity, unspecified whether complicated, unspecified whether persistent (Primary Dx); Subacute cough; Allergic rhinitis, unspecified seasonality, unspecified trigger 08/21/2024 Travel from Last 3 Months Immunizations Immunization Administration Dates Next Due INFLUENZA VACCINE, TRIV. (AF LURIA, FLUZONE TRIVALENT; 6MO+) (IIV3) 04/01/2019,05/17/2015,04/25/2014 COVID PFIZER BIVALENT 12Y+ 30mcg/0.3ML 2022 HEP A PED/ADULT VACCINE 04/08/2019 HEP A VACCINE, ADULT 04/02/2021 INFLUENZA VACCINE 04/08/2019, 9,05/17/2015,2013 INFLUENZA VACCINE, CELL CULT URE, QUADR. (FLUCELVAX QUADRIVALENT; 6MO+) (CCIIV4) 2022 INFLUENZA VACCINE, QUADR. (F LUZONE; FLULAVAL; FLUARIX; AFLURIA QUADRIVALENT; 6MO+), 0.5 ML (IIV4) 03/28/2023,05/08/2020 PNEUMOCOCCAL PPSV23 04/08/2019 RESPIRATORY SYNCYTIAL VIRUS IMMUNE GLOBULIN RSV-IGIV 05/04/2023 TD, HISTORIC VACCINE 01/31/2012 TETANUS 01/31/2012,01/31/2012 Zoster Hzv Vacc Recombinant Inj Im 07/14/2023, Family History Medical History Relation Name Comments Cancer - Colon Maternal Grandmother Cancer - Other Paternal Grandfather GI tr act unknown Cancer - Pancreatic Paternal Grandmother Relation Name Status Comments Brother 61 Alive Father 72 Maternal Grandfather Maternal Grandmother Mother 83 Paternal Grandfather Paternal Grandmother Sister 1 62 Alive Sister 2 60 Alive Son 1 35 Alive Son 2 34 Alive Son 3 30 Alive Social History Tobacco Use Types Packs/Day Years Used Date Smoking Tobacco: Never Passive Smoke Exposure: Never Smokeless Tobacco: Never Tobacco Cessation:Counseling Given: Not Answered Alcohol Use Standard Drinks/Week Comments Yes 1 (1 standard drink = 0.6 oz pur e alcohol) SOCIALLY AUDIT-C Answer Date Recorded Q1: How often do you have a drink containing alc ohol? Monthly or less 11/15/2022 Q2: How many drinks containi ng alcohol do you have on a typical day when you are drinking? 1 or 2 11/15/2022 Q3: How often do you have si x or more drinks on one occasion? Never 11/15/2022 Overall Financial Resource Strain (CARDIA) Answe r Date Recorded How hard is it for you to pa y for the very basics like food, housing, medical care, and heating? Not hard at all 11/15/2022 PHQ-2 Answer Date Recorded PHQ2 TOTAL SCORE 0 02/20/2023 [facility] [place] [facility] - Occupational Stress Questionnaire Answer Date Recorded Do you feel stress - tense, restless, nervous, or anxious, or unable to sleep at night because your mind is troubled all the time - these days? Not at all 11/15/2022 Hunger Vital Sign Answer Date Recorded Within the past 12 months, y ou worried that your food would run out before you got the money to buy more. Never true 11/16/19 23 Within the past 12 months, t he food you bought just didn't last and you didn't have money to get more. Never true 11/15/2022 PRAPARE - Transportation Answer Date Re corded In the past 12 months, has l ack of transportation kept you from medical appointments or from getting medications? No 08/2022 In the past 12 months, has l ack of transportation kept you from meetings, work, or from getting things needed for daily living? No 11/15/2022 Housing Stability Vital Sign Answer Doug e Recorded In the last 12 months, was t here a time when you were not able to pay the mortgage or rent on time? No 11/15/2022 In the last 12 months, how many places have you lived? 1 11/15/2022 In the last 12 months, was t here a time when you did not have a steady place to sleep or slept in a retirement (including now)? No 11/15/2022 Education Answer Date Recorded What is the highest level of school you have completed or the highest degree you have received? Bachelor's degree (e.g., BA, AB, BS) 11/15/2022 Comments No Sex and Gender Information Value Date Recorded Sex Assigned at Female 11/15/2022 8:25 AM CDT Legal Sex Female 2:54 PM CDT Gender Identity Female 11/15/2022 8:25 AM CDT Sexual Orientation Straight 11/15/2022 8: 25 AM CDT Last Filed Vital Signs Vital Sign Reading Time Taken Comments Blood Pressure 132/82 08/21/2024 2:28 PM LEGAL BILLING ANALYST Pulse 83 08/21/2024 2:28 PM LEGAL BILLING ANALYST Temperature 36.7 C (98 F) 07/15/2024 1:32 PM LEGAL BILLING ANALYST Respiratory Rate 17 08/21/2024 2:28 PM LEGAL BILLING ANALYST Oxygen Saturation 96% 08/21/2024 2:28 PM LEGAL BILLING ANALYST Inhaled Oxygen Concentration - - Weight 106.2 kg (234 lb 3.2 oz) 08/21/2024 2:28 PM LEGAL BILLING ANALYST Height 170.2 cm (5' 7 ) 08/21/2024 2:28 PM LEGAL BILLING ANALYST Body Mass Index 36.68 08/21/2024 2:28 PM LEGAL BILLING ANALYST Plan of Treatment Upcoming Encounters Date Type Department Care Team (Late st Contact Info) Description 12/03/2024 3:45 PM CDT Office Visit [facility] [address] [place] [address] [address] [place], [place] [id number] Patito Richey DO [address] [place] [address] [address] [place] [address] 01/14/2025 10:30 AM CDT Office Visit [facility] - [facility] [address] [place] [phone] Nerissa Mcgraw MD [facility] [facility] [address] DIV [place] [phone] 02/19/2025 4:00 PM CDT Office Visit [facility] - Pulmonology [address] [place] [address] Brady Bai DO [address] [place] [address] Health Maintenance Due Date Last Done Comments COLOGUARD (AGES 45-75) - COLON CA SCREENING 1961 COLON MONITORING 1961 COLONOSCOPY - COLON CA SCREENING 1961 CT COLONOGRAPHY - COLON CA SCREENING 1961 Colorectal Cancer Screening 1961 FIT - COLON CA SCREENING 1961 FLEX SIG - COLON CA SCREENING 1961 HIV SCREENING 1976 PNEUMOCOCCAL VACCINE 50+ (2 of 2 - PCV) 04/08/2020 04/08/2019 PAP SMEAR 05/10/2020 05/10/2017 Respiratory Syncytial Virus (RSV) Vaccine Pt: or over 60 yrs (1 - Risk 60-74 years 1-dose series) 2021 DTAP/TDAP/TD VACCINES (4 - Td or Tdap) 01/30/2022 01/31/2012, 01/31/2012, 01/31/2012 SCREENING FOR DIABETES 05/15/2023 05/15/2020 COVID-19 VACCINE ( season) 2024 2022, 12/14/2021, 04/15/2021, Additional history exists DEPRESSION SCREENING 07/17/2024 05/16/2023, 04/14/2023, 02/20/2023, Additional history exists MAMMOGRAM 12/03/2025 12/04/2023, 11/15, 08/12/2022, Additional history exists HEPATITIS C SCREENING Completed 09/27/2022 ZOSTER VACCINE Completed 07/14/2023, 05/04/2023 INFLUENZA VACCINE Completed 04/08/2024, , 2022, Additional history exists HEPATITIS B VACCINE Aged Out No longe r eligible based on patient's age to complete this topic HIB VACCINE Aged Out No longer eligi ble based on patient's age to complete this topic HPV VACCINE Aged Out No longer eligi ble based on patient's age to complete this topic MENINGOCOCCAL (Group B) VACCINE SHARED DECISION-MAKING Aged Out No longer eligible based on patient's age to complete this topic MENINGOCOCCAL GROUPS A/C/Y/W VACCINE Aged Out No longer eligible based on patient's age to complete this topic Goals Goal Patient Goal Type Associated Problems Recent Progress Patient-Stated? Author Mobility/ROM General Improving(06/16 10:19 AM LEGAL BILLING ANALYST) Allie Isaacs RN Note: Expected end date: ongoing The goal is to maintain or improve your mobility at the optimum level for you. Interventions: Medical Devices Implanted Type Area Protection Mgr Device Identifier Shelf Expiration Date Model / Serial / Lot Screw 3.5mm 14mm 2.5mm Slf-Tap Sm Hex Implanted:Qty: 3 on 05/15/2020 by Allan Dooley, DO at [facility] Left: Ankle [employer] [id number] / / Plate 10 Hl Lck Lopro 2 Comp Slot Fib Lt Implanted:Qty: 1 on 05/15/2020 by Allan Dooley DO at [facility] Left: Ankle [employer] [id number] / / Screw 3.5mm 60mm 2.7mm Slf-Tap Cortx Ss Implanted:Qty: 1 on 05/15/2020 by Allan Dooley DO at [facility] Left: Ankle [employer] [id number] / / Screw 2.7mm 16mm Lck Biodur 108 Nonster Implanted:Qty: 1 on 05/15/2020 by Allan Dooley DO at [facility] [employer] [id number] / / Screw 2.7mm 18mm Lck Elb Periart Ss Implanted:Qty: 3 on 05/15/2020 by Allan Dooley DO at [facility] [employer] [id number] / / Explanted Type Area Protection Mgr Device Identifier Shelf Expiration Date Model / Serial / Lot Screw 3.5mm 65mm 2.7mm Slf-Tap Cortx Ss Explanted:Qty: 1 on 05/15/2020 by Allan Dooley DO at [facility] Left: Ankle [employer] [id number] / / Wire K 1.6mm 150mm 1 End Troc Pnt Ss Sm Explanted:Qty: 1 on 05/15/2020 by Allan Dooley DO at [facility] [employer] [id number] / / Procedures Procedure Name Priority Date/Time Associated Diagnosis Comments BASIC METABOLIC PANEL (CALCIUM TOTAL) STAT 05/15/2020 9:22 AM CDT Closed fracture of left ankle with routine healing, subsequent encounter from Last 3 Months or Most Recently Relevant to Health Maintenance Results * (ABNORMAL) BASIC METABOLIC PANEL (CALCIUM TOTAL) (05/15/2020 9:22 AM CDT) BUN 18 7 - 26 mg/dL 05/15/2020 9:58 AM [facility] Creatinine 0.7 0.6 - 1.2 mg/dL 05/15/2020 9:58 AM [facility] Sodium 138 136 - 145 mmol/L 05/15/2020 9:58 AM [facility] Potassium 3.6 3.5 - 4.5 mmol/L 05/15/2020 9:58 AM [facility] Chloride 102 98 - 107 mmol/L 05/15/2020 9:58 AM [facility] CO2 26 22 - 29 mmol/L 05/15/2020 9:58 AM [facility] Glucose 102 70 - 115 mg/dL 05/15/2020 9:58 AM [facility] Calcium 9.4 8.4 - 10.2 mg/dL 05/15/2020 9:58 AM [facility] Anion Gap 14 8 - 18 05/15/2020 9:58 AM CDT [facility] BUN/Creatinine Ratio 26(H) 7 - 23 05/15/2020 9:58 AM CDT [facility] Osmolality Calculated 288 270 - 300 mOsm/kg 05/15/2020 9:58 AM CDT [facility] eGFR >60 >60 mL/min/1.7 3 m2 05/15/2020 9:58 AM CDT [facility] Blood BLOOD SPECIMEN / Unknown Venipuncture / Unknown 05/15/2020 9:22 AM CDT 05/15/2020 9:32 AM CDT Winnie Joy MD LAB - CHEMISTRY ORDERABLES Final Result [facility] [address] [place] [address], [facility] [phone] from Last 3 Months or Most Recently Relevant to Health Maintenance Insurance [employer] Care Teams Real Estate Intern Relationship Specialty Start Date End Date Ab Miller MD [address] [address] PCP - General Family Medicine 02/14/23 Patito Richey DO [facility] [address] [place] [address] Cardiovascular Disease 05/29/24
--- OUTSIDE RECORDS SUMMARY | 2024-11-13 15:25 | XMS_ITS | Patient Health Record ---
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 Name Role Phone Ab Miller MD Primary Care Provider UnavailNerissa Hill Unavailable [phone] Migration, Provider Unavailable Unavailable Allergies Allergen (clinical drug ingredient) Drug/Non Drug Allergy documented on EMR Reaction Allergy Type Onset Date Status sulfamethoxazole / trimethoprim Bactrim Unknown Drug Allergy Active LamISIL Unknown Drug Allergy Active carbamazepine TEGretol Unknown Drug Allergy Act rigo Wellbutrin Unknown Drug Allergy Active tramadol Tramadol Unknown Drug Allergy Active Results Component Value Reference Range Notes UDT Reviewed date:04/12/2024 10:08:50 AM Interpretation: Performing Lab: Notes/Report: THC N 0 - 50 ng/ml Cocaine N 0 - 300 ng/ml Amphetamine N 0 - 1000 ng/ml Buprenorphine (BUP) N 0 - 10 ng/ml Secobarbital (Bar) N 0 - 300 ng/ml Oxazepam (BZO) N 0 - 300 ng/ml 0-vshnyyhndq-6,8-mpofvlnv-5,3-diphenylpyrrolidine (ROBERT P) N 0 - 300 ng/ml Methamphetamine (MET) N 0 - 1000 ng/ml Methylenedioxymethamphetamine (MDMA) N 0 - 500 ng/ml Morphine (MOP 300/[id number]) N 0 - 300 ng/ml Methadone (MTD) N 0 - 300 ng/ml Phencyclidine (PCP) N 0 - 25 ng/ml Nortriptyline (TCA) N 0 - 1000 ng/ml Oxycodone N 0 - 300 ng/ml x N 0 - 300 ng/ml UDT Reviewed date:01/30/2024 10:44:47 AM Interpretation: Performing Lab: Notes/Report: THC N 0 - 50 ng/ml Cocaine N 0 - 300 ng/ml Amphetamine N 0 - 1000 ng/ml Buprenorphine (BUP) N 0 - 10 ng/ml Secobarbital (Bar) N 0 - 300 ng/ml Oxazepam (BZO) N 0 - 300 ng/ml 1-zvtbyhixqk-5,7-pfoycrba-7,3-diphenylpyrrolidine (ROBERT P) N 0 - 300 ng/ml Methamphetamine (MET) N 0 - 1000 ng/ml Methylenedioxymethamphetamine (MDMA) N 0 - 500 ng/ml Morphine (MOP 300/[id number]) N 0 - 300 ng/ml Methadone (MTD) N 0 - 300 ng/ml Phencyclidine (PCP) N 0 - 25 ng/ml Nortriptyline (TCA) N 0 - 1000 ng/ml Oxycodone N 0 - 300 ng/ml x N 0 - 300 ng/ml Reason For Referral No Information Medications Medication SIG (Take, Route, Frequency, Duration) Notes Start Date End Date Status Vitamin B 12 500 MCG 1 tablet Orally Once a day Active Co Q 10 100 MG as directed Orally Active Nitrofurantoin Monohyd Macro 100 MG Oral Active Calcium 600 MG 1 tablet with meals Orally Twice a day Active Melatonin 5 MG 1 tablet in the evening Orally Once a day Active Gabapentin 100 MG Oral Ac tive Black Cohosh Root 450 MG as directed Orally Active Levothyroxine Sodium 100 MCG Oral Active Atorvastatin Calcium 20 MG Oral Active Motrin Active Doxycycline Hyclate 100 MG Oral Active DULoxetine HCl 60 MG Oral Active Nystatin 995608 UNIT/GM External Not-Taking Eliquis 5 MG Take 1 tablet Oral twice a day Active oxyCODONE-Acetaminoph en 5-325 MG Oral Not-Taking Montelukast Sodium 10 MG Oral Active ATOVAQUONE 250 MG-PROGUANIL 100 MG TABLET *Reorder from [facility]eb[facility] for eRx and Interaction Alerts* Not-Taking DULoxetine HCl 30 MG Oral Active Amoxicillin-Pot Clavulanate 875-125 MG Oral Not-Taking QUICKVUE AT-HOME COVID-19 TEST KIT *Reorder from Mebelrama for eRx and Interaction Alerts* Not-Taking ProAir HFA 108 (90 Base) MCG/ACT Inhalation PRN Active Fluconazole 150 MG Oral N ot-Taking Losartan Potassium 50 MG Oral Not-Taking Lubiprostone 24 MCG 1 capsule with food and water Orally Twice a day Active Carvedilol 6.25 MG 1 tablet with food Orally Once a day Active Atorvastatin Calcium 40 MG 1 tablet Orally Once a day Active Methocarbamol 500 MG Oral Not-Taking Singulair 10 MG 1 tablet Orally Once a day Active Nystop 576121 UNIT/GM External Not-Taking Loratadine 10 MG 1 tablet Orally Once a day Active Ciprofloxacin HCl 500 MG Oral Not-Taking Pepcid 20 MG 1 tablet at bedtime as needed Orally Once a day Active Clobetasol Propionate 0.05% External Not-Taking Vitamin D 50 MCG (2000 UT) 1 tablet Orally Once a day Active Colace 100 MG 1 capsule as needed Orally Once a day Active Vitamin E 400 UNIT 1 capsule Orally Once a day Active Escitalopram Oxalate 5 MG Take 1 tablet by mouth once daily for 30 days for 30 Active Vitamin B + C Complex - as directed Orally Active DULoxetine HCl 30 MG 1 capsule Orally Once a day for 90 days Active hydrOXYzine HCl 10 MG 1 tablet Oral Once a day for 30 days PRN 01/30/2024 Active LORazepam 0.5 MG 1 tablet Orally Once a day for 10 days As needed d/c 2 mg dose 01/30/2024 Active Cymbalta 60 MG 1 capsule Orally Once a day for 90 days Active Escitalopram Oxalate 10 MG 1 tablet Orally Once a day for 90 days Active Social History Tobacco Use: Social History Observation Description Date Details (start date - stop date) Never Smoker NA - NA Sex Assigned At : Social History Observation Description Sex Assigned At Female Household Question Answer Notes Marital status: Number of adults in household: 2 Sexual History Question Answer Notes Had sex in the past 12 months (vaginal, oral, or anal)? Yes with Men only Tobacco Control (Standard) Question Answer Notes Tobacco use: Nonsmoker AUDIT-C (Standard) Question Answer Notes Did you have a drink contain ing alcohol in the past year? Yes How often did you have six o r more drinks on one occasion in the past year? Never (0 point) How many drinks did you have on a typical day when you were drinking in the past year? 3 or 4 drinks (1 point) How often did you have a dri nk containing alcohol in the past year? 2 to 4 times a month (2 points) Problems Problem Type SNOMED Code ICD Code Onset Dates Problem Status W/U Status Risk Notes Problem 3459560 Primary insomnia (F51.01) Active confirmed Problem 10232362 LOUIS (generalized anxiety disorder) (F41.1) Active confirmed Problem 776705926 MDD (major depressive disorder), recurrent episode, mild (F33.0) Active confirmed Problem 08476123 Essential hypertension (I10) Active confirmed Vital Signs Heart Rate 76 /min 09/09/2024 Height-cm 170.18 cm 09/09/2024 Blood pressure diastolic 73 mm Hg 09/09/2024 Weight-kg 103.87 kg 09/09/2024 Height 67 in 09/09/2024 Blood pressure systolic 144 mm Hg 09/09/2024 Weight 229.0 lbs 09/09/2024 BMI 35.86 kg/m2 09/09/2024 Encounters Encounter Location Date Provider Diagnosis [facility] [employer] [address] [employer] [place] [id number] [facility] [address] [place] [address] 01/30/2024 Nerissa Thery MDD (major depressiv e disorder), recurrent episode, mild F33.0 ; LOUIS (generalized anxiety disorder) F41.1 and Primary insomnia F51.01 [facility] [employer] [address] [employer] [facility] [address] [facility] [address] [place] [address] 03/08/2024 Nerissa Thery MDD (major depressiv e disorder), recurrent episode, mild F33.0 ; LOUIS (generalized anxiety disorder) F41.1 and Primary insomnia F51.01 [employer] [facility] [address] [facility] [address] [place] [address] 04/12/2024 Nerissa Thery MDD (major depressiv e disorder), recurrent episode, mild F33.0 ; LOUIS (generalized anxiety disorder) F41.1 and Primary insomnia F51.01 [employer] [facility] [address] [place] [address] 07/15/2024 Nerissa Thery MDD (major depressiv e disorder), recurrent episode, mild F33.0 ; LOUIS (generalized anxiety disorder) F41.1 ; Primary insomnia F51.01 and Essential hypertension I10 [facility] [employer] [address] [employer] [facility] [address] [facility] [address] [place] [address] 09/09/2024 Nerissa Thery MDD (major depressiv e disorder), recurrent episode, mild F33.0 ; LOUIS (generalized anxiety disorder) F41.1 ; Primary insomnia F51.01 and Essential hypertension I10 [facility] [address] [place] [address] 12/02/2023 Provider Migration [facility] [address] [place] [address] 12/03/2023 Provider Migration [facility] [address] [place] [address] 04/07/2024 Nerissa Pena [facility] [address] [place] [address] 09/09/2024 Nerissa Pena [facility] [address] [facility] [address] [facility] [address] [place] [address] 09/11/2024 Nerissa Pena Assessments Encounter Date Diagnosis (ICD Code) Assessment Notes Treatment Notes Treatment Clinical Notes Section Notes 01/30/2024 LOUIS (generalized anxiety disorder) (ICD-10 - F41.1) Generalized Anxiety Disorder: Care Instructions material was published, Learning About Anxiety Disorders material was published, Learning About Transcranial Magnetic Stimulation (TMS) material was published Major depression recurrent- Cymbalta 60 mg twice a day would like to look into change Cymbalta dose and add rx after vacation this month [place] will address next visit Anxiety- Ativan 2 mg hx 6 tablets at time- patient been breaking rx in half and quarters when take rx will decrease Ativan 0.5 mg as needed iniguez PRN and limit number # 10 educated how to take rx as prescribed will add Visatral 10 mg twice a day as needed- patient reported not anxious daily Primary Insomnia 2.5- 3 mg at night Menopausal s/s increase anxiety http_s://www.nimh .nih.gov/health/t opics/mental-heal th-medications http_s://www.rachael .org/About-Mental -Illness/Treatmen ts/Mental-Health- Medications educated on all medications, benefits, side effects and risk, and educated on depression, anxiety, and ADHD, mood d/o and educated on compliance of medications, metabolic and movement d/o education appointment is, continue therapy discussion with patient about course of treatment and patient instructions. education on serotonin syndrome Discussed and educated pt regarding benzodiazepines are generally not intended for prolonged use and that use can cause tolerance, dependence, depression, and associated memory issues including dementias (this list is not exhaustive). Benzodiazepine use is generally not recommended concurrently with pain medications and/or other controlled substances due to SSRI/SNRI side effects discussed including but not limited to, gastric upset, nausea, vomiting, diarrhea and/or constipation, weight changes, sexual side effects including loss of libido, increased suicidal thoughts/behavior s in children and young adults, and serotonin syndrome. Medication Management and Follow-Up - Plan: - Schedule follow-up appointments every 1-3 months to monitor the patient's response to the medication regimen. - Reinforce the importance of avoiding recreational drug use due to potential neurotoxicity and interactions with prescribed medications. 01/30/2024 MDD (major depressive disorder), recurrent episode, mild (ICD-10 - F33.0) Preventing Depression From Coming Back: Care Instructions material was published, Depression Treatment: Care Instructions material was published, Learning About Depression material was published, Seasonal Affective Disorder: Care Instructions material was published Major depression recurrent- Cymbalta 60 mg twice a day would like to look into change Cymbalta dose and add rx after vacation this month [place] will address next visit Anxiety- Ativan 2 mg hx 6 tablets at time- patient been breaking rx in half and quarters when take rx will decrease Ativan 0.5 mg as needed iniguez PRN and limit number # 10 educated how to take rx as prescribed will add Visatral 10 mg twice a day as needed- patient reported not anxious daily Primary Insomnia 2.5- 3 mg at night Menopausal s/s increase anxiety http_s://www.nimh .nih.gov/health/t opics/mental-heal th-medications http_s://www.rachael .org/About-Mental -Illness/Treatmen ts/Mental-Health- Medications educated on all medications, benefits, side effects and risk, and educated on depression, anxiety, and ADHD, mood d/o and educated on compliance of medications, metabolic and movement d/o education appointment is, continue therapy discussion with patient about course of treatment and patient instructions. education on serotonin syndrome Discussed and educated pt regarding benzodiazepines are generally not intended for prolonged use and that use can cause tolerance, dependence, depression, and associated memory issues including dementias (this list is not exhaustive). Benzodiazepine use is generally not recommended concurrently with pain medications and/or other controlled substances due to SSRI/SNRI side effects discussed including but not limited to, gastric upset, nausea, vomiting, diarrhea and/or constipation, weight changes, sexual side effects including loss of libido, increased suicidal thoughts/behavior s in children and young adults, and serotonin syndrome. Medication Management and Follow-Up - Plan: - Schedule follow-up appointments every 1-3 months to monitor the patient's response to the medication regimen. - Reinforce the importance of avoiding recreational drug use due to potential neurotoxicity and interactions with prescribed medications. 03/08/2024 MDD (major depressive disorder), recurrent episode, mild (ICD-10 - F33.0) Preventing Depression From Coming Back: Care Instructions material was published, Depression Treatment: Care Instructions material was published, Learning About Depression material was published, Seasonal Affective Disorder: Care Instructions material was published, Preventing Depression From Coming Back: Care Instructions material was published, Learning About Depression material was published, Learning About Depression Screening material was published, Learning About How to Get Help During a Mental Health Crisis material was published, Depression Treatment: Care Instructions material was published Major depression mild - will decrease Cymbalta 90 mg a day discuss and educated on medication options and patient would like to try rx with minimal weight gain Add Lexapro 5 mg daily for depression and anxiety Anxiety mild Ativan 0.5 mg as needed daily PRN and limit number # 10- no refill needed educated how to take rx as prescribed Visatral 10 mg twice a day as needed- patient reported not anxious daily - no refill needed Primary Insomnia Melatonin 2.5 mg at night- stable Menopausal s/s increase anxiety http_s://www.nimh .nih.gov/health/t opics/mental-heal th-medications http_s://www.rachael .org/About-Mental -Illness/Treatmen ts/Mental-Health- Medications educated on all medications, benefits, side effects and risk, and educated on depression, anxiety, and ADHD, mood d/o and educated on compliance of medications, metabolic and movement d/o education appointment is, continue therapy discussion with patient about course of treatment and patient instructions. education on serotonin syndrome Discussed and educated pt regarding benzodiazepines are generally not intended for prolonged use and that use can cause tolerance, dependence, depression, and associated memory issues including dementias (this list is not exhaustive). Benzodiazepine use is generally not recommended concurrently with pain medications and/or other controlled substances due to SSRI/SNRI side effects discussed including but not limited to, gastric upset, nausea, vomiting, diarrhea and/or constipation, weight changes, sexual side effects including loss of libido, increased suicidal thoughts/behavior s in children and young adults, and serotonin syndrome. Medication Management and Follow-Up - Plan: - Schedule follow-up appointments every 1-3 months to monitor the patient's response to the medication regimen. - Reinforce the importance of avoiding recreational drug use due to potential neurotoxicity and interactions with prescribed medications. 04/12/2024 MDD (major depressive disorder), recurrent episode, mild (ICD-10 - F33.0) Preventing Depression From Coming Back: Care Instructions material was published, Depression Treatment: Care Instructions material was published, Learning About Depression material was published, Seasonal Affective Disorder: Care Instructions material was published, Preventing Depression From Coming Back: Care Instructions material was published, Learning About Depression material was published, Learning About Depression Screening material was published, Learning About How to Get Help During a Mental Health Crisis material was published, Depression Treatment: Care Instructions material was published Major depression mild - Cymbalta 90 mg a day discuss and educated on medication options and patient would like to try rx with minimal weight gain Lexapro 5 mg daily for depression and anxiety Therapy continue Anxiety mild Ativan 0.5 mg as needed daily PRN and limit number # 10- no refill needed educated how to take rx as prescribed Visatral 10 mg twice a day as needed- patient reported not anxious daily - no refill needed Primary Insomnia Melatonin 2.5 mg at night- stable Menopausal s/s increase anxiety http_s://www.nimh .nih.gov/health/t opics/mental-heal th-medications http_s://www.rachael .org/About-Mental -Illness/Treatmen ts/Mental-Health- Medications educated on all medications, benefits, side effects and risk, and educated on depression, anxiety, and ADHD, mood d/o and educated on compliance of medications, metabolic and movement d/o education appointment is, continue therapy discussion with patient about course of treatment and patient instructions. education on serotonin syndrome Discussed and educated pt regarding benzodiazepines are generally not intended for prolonged use and that use can cause tolerance, dependence, depression, and associated memory issues including dementias (this list is not exhaustive). Benzodiazepine use is generally not recommended concurrently with pain medications and/or other controlled substances due to SSRI/SNRI side effects discussed including but not limited to, gastric upset, nausea, vomiting, diarrhea and/or constipation, weight changes, sexual side effects including loss of libido, increased suicidal thoughts/behavior s in children and young adults, and serotonin syndrome. Medication Management and Follow-Up - Plan: - Schedule follow-up appointments every 1-3 months to monitor the patient's response to the medication regimen. - Reinforce the importance of avoiding recreational drug use due to potential neurotoxicity and interactions with prescribed medications. 07/15/2024 LOIUS (generalized anxiety disorder) (ICD-10 - F41.1) Generalized Anxiety Disorder: Care Instructions material was published, Learning About Anxiety Disorders material was published, Learning About Transcranial Magnetic Stimulation (TMS) material was published, Learning About Generalized Anxiety Disorder material was published, Generalized Anxiety Disorder: Care Instructions material was published, Learning About Anxiety Disorders material was published, Learning About Transcranial Magnetic Stimulation (TMS) material was published Major depression - Cymbalta 90 mg a day discuss and educated on medication options and patient would like to try rx with minimal weight gain increase Lexapro 10 mg daily for depression and anxiety Therapy continue Anxiety mild Ativan 0.5 mg as needed daily PRN and limit number # 10- no refill needed educated how to take rx as prescribed Visatral 10 mg twice a day as needed- patient reported not anxious daily - no refill needed- not using Primary Insomnia Melatonin 2.5 mg at night- stable Menopausal s/s increase anxiety http_s://www.nimh .nih.gov/health/t opics/mental-heal th-medications http_s://www.rachael .org/About-Mental -Illness/Treatmen ts/Mental-Health- Medications educated on all medications, benefits, side effects and risk, and educated on depression, anxiety, and ADHD, mood d/o and educated on compliance of medications, metabolic and movement d/o education appointment is, continue therapy discussion with patient about course of treatment and patient instructions. education on serotonin syndrome Discussed and educated pt regarding benzodiazepines are generally not intended for prolonged use and that use can cause tolerance, dependence, depression, and associated memory issues including dementias (this list is not exhaustive). Benzodiazepine use is generally not recommended concurrently with pain medications and/or other controlled substances due to SSRI/SNRI side effects discussed including but not limited to, gastric upset, nausea, vomiting, diarrhea and/or constipation, weight changes, sexual side effects including loss of libido, increased suicidal thoughts/behavior s in children and young adults, and serotonin syndrome. Medication Management and Follow-Up - Plan: - Schedule follow-up appointments every 1-3 months to monitor the patient's response to the medication regimen. - Reinforce the importance of avoiding recreational drug use due to potential neurotoxicity and interactions with prescribed medications. 07/15/2024 MDD (major depressive disorder), recurrent episode, mild (ICD-10 - F33.0) Preventing Depression From Coming Back: Care Instructions material was published, Depression Treatment: Care Instructions material was published, Learning About Depression material was published, Seasonal Affective Disorder: Care Instructions material was published, Preventing Depression From Coming Back: Care Instructions material was published, Learning About Depression material was published, Learning About Depression Screening material was published, Learning About How to Get Help During a Mental Health Crisis material was published, Depression Treatment: Care Instructions material was published Major depression - Cymbalta 90 mg a day discuss and educated on medication options and patient would like to try rx with minimal weight gain increase Lexapro 10 mg daily for depression and anxiety Therapy continue Anxiety mild Ativan 0.5 mg as needed daily PRN and limit number # 10- no refill needed educated how to take rx as prescribed Visatral 10 mg twice a day as needed- patient reported not anxious daily - no refill needed- not using Primary Insomnia Melatonin 2.5 mg at night- stable Menopausal s/s increase anxiety http_s://www.nimh .nih.gov/health/t opics/mental-heal th-medications http_s://www.rachael .org/About-Mental -Illness/Treatmen ts/Mental-Health- Medications educated on all medications, benefits, side effects and risk, and educated on depression, anxiety, and ADHD, mood d/o and educated on compliance of medications, metabolic and movement d/o education appointment is, continue therapy discussion with patient about course of treatment and patient instructions. education on serotonin syndrome Discussed and educated pt regarding benzodiazepines are generally not intended for prolonged use and that use can cause tolerance, dependence, depression, and associated memory issues including dementias (this list is not exhaustive). Benzodiazepine use is generally not recommended concurrently with pain medications and/or other controlled substances due to SSRI/SNRI side effects discussed including but not limited to, gastric upset, nausea, vomiting, diarrhea and/or constipation, weight changes, sexual side effects including loss of libido, increased suicidal thoughts/behavior s in children and young adults, and serotonin syndrome. Medication Management and Follow-Up - Plan: - Schedule follow-up appointments every 1-3 months to monitor the patient's response to the medication regimen. - Reinforce the importance of avoiding recreational drug use due to potential neurotoxicity and interactions with prescribed medications. 09/09/2024 MDD (major depressive disorder), recurrent episode, mild (ICD-10 - F33.0) Preventing Depression From Coming Back: Care Instructions material was published, Depression Treatment: Care Instructions material was published, Learning About Depression material was published, Seasonal Affective Disorder: Care Instructions material was published, Preventing Depression From Coming Back: Care Instructions material was published, Learning About Depression material was published, Learning About Depression Screening material was published, Learning About How to Get Help During a Mental Health Crisis material was published, Depression Treatment: Care Instructions material was published Major depression - Cymbalta 90 mg a day discuss and educated on medication options and patient would like to try rx with minimal weight gain Lexapro 10 mg daily for depression and anxiety Therapy continue Anxiety mild Ativan 0.5 mg as needed daily PRN and limit number # 10- no refill needed educated how to take rx as prescribed Visatral 10 mg twice a day as needed- patient reported not anxious daily - no refill needed- not using Primary Insomnia Melatonin 2.5 mg at night- stable Menopausal s/s increase anxiety http_s://www.[facility]im[facility] .nih.gov/health/t opics/mental-heal th-medications http_s://www.[email or web address] .org/About-Mental -Illness/Treatmen ts/Mental-Health- Medications educated on all medications, benefits, side effects and risk, and educated on depression, anxiety, and ADHD, mood d/o and educated on compliance of medications, metabolic and movement d/o education appointment is, continue therapy discussion with patient about course of treatment and patient instructions. education on serotonin syndrome Discussed and educated pt regarding benzodiazepines are generally not intended for prolonged use and that use can cause tolerance, dependence, depression, and associated memory issues including dementias (this list is not exhaustive). Benzodiazepine use is generally not recommended concurrently with pain medications and/or other controlled substances due to SSRI/SNRI side effects discussed including but not limited to, gastric upset, nausea, vomiting, diarrhea and/or constipation, weight changes, sexual side effects including loss of libido, increased suicidal thoughts/behavior s in children and young adults, and serotonin syndrome. Medication Management and Follow-Up - Plan: - Schedule follow-up appointments every 1-3 months to monitor the patient's response to the medication regimen. - Reinforce the importance of avoiding recreational drug use due to potential neurotoxicity and interactions with prescribed medications. 04/12/2024 L[place]IS (generalized anxiety disorder) (ICD-10 - F41.1) Generalized Anxiety Disorder: Care Instructions material was published, Learning About Anxiety Disorders material was published, Learning About Transcranial Magnetic Stimulation (TMS) material was published, Learning About Generalized Anxiety Disorder material was published, Generalized Anxiety Disorder: Care Instructions material was published, Learning About Anxiety Disorders material was published, Learning About Transcranial Magnetic Stimulation (TMS) material was published Major depression mild - Cymbalta 90 mg a day discuss and educated on medication options and patient would like to try rx with minimal weight gain Lexapro 5 mg daily for depression and anxiety Therapy continue Anxiety mild Ativan 0.5 mg as needed daily PRN and limit number # 10- no refill needed educated how to take rx as prescribed Visatral 10 mg twice a day as needed- patient reported not anxious daily - no refill needed Primary Insomnia Melatonin 2.5 mg at night- stable Menopausal s/s increase anxiety http_s://www.nim[facility] .nih.gov/health/t opics/mental-heal th-medications http_s://www.[email or web address] .org/About-Mental -Illness/Treatmen ts/Mental-Health- Medications educated on all medications, benefits, side effects and risk, and educated on depression, anxiety, and ADHD, mood d/o and educated on compliance of medications, metabolic and movement d/o education appointment is, continue therapy discussion with patient about course of treatment and patient instructions. education on serotonin syndrome Discussed and educated pt regarding benzodiazepines are generally not intended for prolonged use and that use can cause tolerance, dependence, depression, and associated memory issues including dementias (this list is not exhaustive). Benzodiazepine use is generally not recommended concurrently with pain medications and/or other controlled substances due to SSRI/SNRI side effects discussed including but not limited to, gastric upset, nausea, vomiting, diarrhea and/or constipation, weight changes, sexual side effects including loss of libido, increased suicidal thoughts/behavior s in children and young adults, and serotonin syndrome. Medication Management and Follow-Up - Plan: - Schedule follow-up appointments every 1-3 months to monitor the patient's response to the medication regimen. - Reinforce the importance of avoiding recreational drug use due to potential neurotoxicity and interactions with prescribed medications. 09/09/2024 [place]IS (generalized anxiety disorder) (ICD-10 - F41.1) Generalized Anxiety Disorder: Care Instructions material was published, Learning About Anxiety Disorders material was published, Learning About Transcranial Magnetic Stimulation (TMS) material was published, Learning About Generalized Anxiety Disorder material was published, Generalized Anxiety Disorder: Care Instructions material was published, Learning About Anxiety Disorders material was published, Learning About Transcranial Magnetic Stimulation (TMS) material was published Major depression - Cymbalta 90 mg a day discuss and educated on medication options and patient would like to try rx with minimal weight gain Lexapro 10 mg daily for depression and anxiety Therapy continue Anxiety mild Ativan 0.5 mg as needed daily PRN and limit number # 10- no refill needed educated how to take rx as prescribed Visatral 10 mg twice a day as needed- patient reported not anxious daily - no refill needed- not using Primary Insomnia Melatonin 2.5 mg at night- stable Menopausal s/s increase anxiety http_s://www.nim[facility] .nih.gov/health/t opics/mental-heal th-medications http_s://www.[email or web address] .org/About-Mental -Illness/Treatmen ts/Mental-Health- Medications educated on all medications, benefits, side effects and risk, and educated on depression, anxiety, and ADHD, mood d/o and educated on compliance of medications, metabolic and movement d/o education appointment is, continue therapy discussion with patient about course of treatment and patient instructions. education on serotonin syndrome Discussed and educated pt regarding benzodiazepines are generally not intended for prolonged use and that use can cause tolerance, dependence, depression, and associated memory issues including dementias (this list is not exhaustive). Benzodiazepine use is generally not recommended concurrently with pain medications and/or other controlled substances due to SSRI/SNRI side effects discussed including but not limited to, gastric upset, nausea, vomiting, diarrhea and/or constipation, weight changes, sexual side effects including loss of libido, increased suicidal thoughts/behavior s in children and young adults, and serotonin syndrome. Medication Management and Follow-Up - Plan: - Schedule follow-up appointments every 1-3 months to monitor the patient's response to the medication regimen. - Reinforce the importance of avoiding recreational drug use due to potential neurotoxicity and interactions with prescribed medications. 07/15/2024 Primary insomnia (ICD-10 - F51.01) Insomnia: Care Instructions material was published, Learning About Sleeping Well material was published, Insomnia: Care Instructions material was published, Learning About Sleeping Well material was published Major depression - Cymbalta 90 mg a day discuss and educated on medication options and patient would like to try rx with minimal weight gain increase Lexapro 10 mg daily for depression and anxiety Therapy continue Anxiety mild Ativan 0.5 mg as needed daily PRN and limit number # 10- no refill needed educated how to take rx as prescribed Visatral 10 mg twice a day as needed- patient reported not anxious daily - no refill needed- not using Primary Insomnia Melatonin 2.5 mg at night- stable Menopausal s/s increase anxiety http_s://www.nim[facility] .nih.gov/health/t opics/mental-heal th-medications http_s://www.[email or web address] .org/About-Mental -Illness/Treatmen ts/Mental-Health- Medications educated on all medications, benefits, side effects and risk, and educated on depression, anxiety, and ADHD, mood d/o and educated on compliance of medications, metabolic and movement d/o education appointment is, continue therapy discussion with patient about course of treatment and patient instructions. education on serotonin syndrome Discussed and educated pt regarding benzodiazepines are generally not intended for prolonged use and that use can cause tolerance, dependence, depression, and associated memory issues including dementias (this list is not exhaustive). Benzodiazepine use is generally not recommended concurrently with pain medications and/or other controlled substances due to SSRI/SNRI side effects discussed including but not limited to, gastric upset, nausea, vomiting, diarrhea and/or constipation, weight changes, sexual side effects including loss of libido, increased suicidal thoughts/behavior s in children and young adults, and serotonin syndrome. Medication Management and Follow-Up - Plan: - Schedule follow-up appointments every 1-3 months to monitor the patient's response to the medication regimen. - Reinforce the importance of avoiding recreational drug use due to potential neurotoxicity and interactions with prescribed medications. 01/30/2024 Primary insomnia (ICD-10 - F51.01) Insomnia: Care Instructions material was published, Learning About Sleeping Well material was published Major depression recurrent- Cymbalta 60 mg twice a day would like to look into change Cymbalta dose and add rx after vacation this month [place] will address next visit Anxiety- Ativan 2 mg hx 6 tablets at time- patient been breaking rx in half and quarters when take rx will decrease Ativan 0.5 mg as needed iniguez PRN and limit number # 10 educated how to take rx as prescribed will add Visatral 10 mg twice a day as needed- patient reported not anxious daily Primary Insomnia 2.5- 3 mg at night Menopausal s/s increase anxiety http_s://www.nim[facility] .nih.gov/health/t opics/mental-heal th-medications http_s://www.[email or web address] .org/About-Mental -Illness/Treatmen ts/Mental-Health- Medications educated on all medications, benefits, side effects and risk, and educated on depression, anxiety, and ADHD, mood d/o and educated on compliance of medications, metabolic and movement d/o education appointment is, continue therapy discussion with patient about course of treatment and patient instructions. education on serotonin syndrome Discussed and educated pt regarding benzodiazepines are generally not intended for prolonged use and that use can cause tolerance, dependence, depression, and associated memory issues including dementias (this list is not exhaustive). Benzodiazepine use is generally not recommended concurrently with pain medications and/or other controlled substances due to SSRI/SNRI side effects discussed including but not limited to, gastric upset, nausea, vomiting, diarrhea and/or constipation, weight changes, sexual side effects including loss of libido, increased suicidal thoughts/behavior s in children and young adults, and serotonin syndrome. Medication Management and Follow-Up - Plan: - Schedule follow-up appointments every 1-3 months to monitor the patient's response to the medication regimen. - Reinforce the importance of avoiding recreational drug use due to potential neurotoxicity and interactions with prescribed medications. 03/08/2024 [place] (generalized anxiety disorder) (ICD-10 - F41.1) Generalized Anxiety Disorder: Care Instructions material was published, Learning About Anxiety Disorders material was published, Learning About Transcranial Magnetic Stimulation (TMS) material was published, Learning About Generalized Anxiety Disorder material was published, Generalized Anxiety Disorder: Care Instructions material was published, Learning About Anxiety Disorders material was published, Learning About Transcranial Magnetic Stimulation (TMS) material was published Major depression mild - will decrease Cymbalta 90 mg a day discuss and educated on medication options and patient would like to try rx with minimal weight gain Add Lexapro 5 mg daily for depression and anxiety Anxiety mild Ativan 0.5 mg as needed daily PRN and limit number # 10- no refill needed educated how to take rx as prescribed Visatral 10 mg twice a day as needed- patient reported not anxious daily - no refill needed Primary Insomnia Melatonin 2.5 mg at night- stable Menopausal s/s increase anxiety http_s://www.nim .nih.gov/health/t opics/mental-heal th-medications http_s://www.[email or web address] .org/About-Mental -Illness/Treatmen ts/Mental-Health- Medications educated on all medications, benefits, side effects and risk, and educated on depression, anxiety, and ADHD, mood d/o and educated on compliance of medications, metabolic and movement d/o education appointment is, continue therapy discussion with patient about course of treatment and patient instructions. education on serotonin syndrome Discussed and educated pt regarding benzodiazepines are generally not intended for prolonged use and that use can cause tolerance, dependence, depression, and associated memory issues including dementias (this list is not exhaustive). Benzodiazepine use is generally not recommended concurrently with pain medications and/or other controlled substances due to SSRI/SNRI side effects discussed including but not limited to, gastric upset, nausea, vomiting, diarrhea and/or constipation, weight changes, sexual side effects including loss of libido, increased suicidal thoughts/behavior s in children and young adults, and serotonin syndrome. Medication Management and Follow-Up - Plan: - Schedule follow-up appointments every 1-3 months to monitor the patient's response to the medication regimen. - Reinforce the importance of avoiding recreational drug use due to potential neurotoxicity and interactions with prescribed medications. 03/08/2024 Primary insomnia (ICD-10 - F51.01) Insomnia: Care Instructions material was published, Learning About Sleeping Well material was published, Insomnia: Care Instructions material was published, Learning About Sleeping Well material was published Major depression mild - will decrease Cymbalta 90 mg a day discuss and educated on medication options and patient would like to try rx with minimal weight gain Add Lexapro 5 mg daily for depression and anxiety Anxiety mild Ativan 0.5 mg as needed daily PRN and limit number # 10- no refill needed educated how to take rx as prescribed Visatral 10 mg twice a day as needed- patient reported not anxious daily - no refill needed Primary Insomnia Melatonin 2.5 mg at night- stable Menopausal s/s increase anxiety http_s://www.nim[facility] .nih.gov/health/t opics/mental-heal th-medications http_s://www.[facility] .org/About-Mental -Illness/Treatmen ts/Mental-Health- Medications educated on all medications, benefits, side effects and risk, and educated on depression, anxiety, and ADHD, mood d/o and educated on compliance of medications, metabolic and movement d/o education appointment is, continue therapy discussion with patient about course of treatment and patient instructions. education on serotonin syndrome Discussed and educated pt regarding benzodiazepines are generally not intended for prolonged use and that use can cause tolerance, dependence, depression, and associated memory issues including dementias (this list is not exhaustive). Benzodiazepine use is generally not recommended concurrently with pain medications and/or other controlled substances due to SSRI/SNRI side effects discussed including but not limited to, gastric upset, nausea, vomiting, diarrhea and/or constipation, weight changes, sexual side effects including loss of libido, increased suicidal thoughts/behavior s in children and young adults, and serotonin syndrome. Medication Management and Follow-Up - Plan: - Schedule follow-up appointments every 1-3 months to monitor the patient's response to the medication regimen. - Reinforce the importance of avoiding recreational drug use due to potential neurotoxicity and interactions with prescribed medications. 04/12/2024 Primary insomnia (ICD-10 - F51.01) Insomnia: Care Instructions material was published, Learning About Sleeping Well material was published, Insomnia: Care Instructions material was published, Learning About Sleeping Well material was published Major depression mild - Cymbalta 90 mg a day discuss and educated on medication options and patient would like to try rx with minimal weight gain Lexapro 5 mg daily for depression and anxiety Therapy continue Anxiety mild Ativan 0.5 mg as needed daily PRN and limit number # 10- no refill needed educated how to take rx as prescribed Visatral 10 mg twice a day as needed- patient reported not anxious daily - no refill needed Primary Insomnia Melatonin 2.5 mg at night- stable Menopausal s/s increase anxiety http_s://www.nim[facility] .nih.gov/health/t opics/mental-heal th-medications http_s://www.[email or web address] .org/About-Mental -Illness/Treatmen ts/Mental-Health- Medications educated on all medications, benefits, side effects and risk, and educated on depression, anxiety, and ADHD, mood d/o and educated on compliance of medications, metabolic and movement d/o education appointment is, continue therapy discussion with patient about course of treatment and patient instructions. education on serotonin syndrome Discussed and educated pt regarding benzodiazepines are generally not intended for prolonged use and that use can cause tolerance, dependence, depression, and associated memory issues including dementias (this list is not exhaustive). Benzodiazepine use is generally not recommended concurrently with pain medications and/or other controlled substances due to SSRI/SNRI side effects discussed including but not limited to, gastric upset, nausea, vomiting, diarrhea and/or constipation, weight changes, sexual side effects including loss of libido, increased suicidal thoughts/behavior s in children and young adults, and serotonin syndrome. Medication Management and Follow-Up - Plan: - Schedule follow-up appointments every 1-3 months to monitor the patient's response to the medication regimen. - Reinforce the importance of avoiding recreational drug use due to potential neurotoxicity and interactions with prescribed medications. 07/15/2024 Essential hypertension (ICD-10 - I10) Major depression - Cymbalta 90 mg a day discuss and educated on medication options and patient would like to try rx with minimal weight gain increase Lexapro 10 mg daily for depression and anxiety Therapy continue Anxiety mild Ativan 0.5 mg as needed daily PRN and limit number # 10- no refill needed educated how to take rx as prescribed Visatral 10 mg twice a day as needed- patient reported not anxious daily - no refill needed- not using Primary Insomnia Melatonin 2.5 mg at night- stable Menopausal s/s increase anxiety http_s://www.nim[facility] .nih.gov/health/t opics/mental-heal th-medications http_s://www.[facility] .org/About-Mental -Illness/Treatmen ts/Mental-Health- Medications educated on all medications, benefits, side effects and risk, and educated on depression, anxiety, and ADHD, mood d/o and educated on compliance of medications, metabolic and movement d/o education appointment is, continue therapy discussion with patient about course of treatment and patient instructions. education on serotonin syndrome Discussed and educated pt regarding benzodiazepines are generally not intended for prolonged use and that use can cause tolerance, dependence, depression, and associated memory issues including dementias (this list is not exhaustive). Benzodiazepine use is generally not recommended concurrently with pain medications and/or other controlled substances due to SSRI/SNRI side effects discussed including but not limited to, gastric upset, nausea, vomiting, diarrhea and/or constipation, weight changes, sexual side effects including loss of libido, increased suicidal thoughts/behavior s in children and young adults, and serotonin syndrome. Medication Management and Follow-Up - Plan: - Schedule follow-up appointments every 1-3 months to monitor the patient's response to the medication regimen. - Reinforce the importance of avoiding recreational drug use due to potential neurotoxicity and interactions with prescribed medications. 09/09/2024 Primary insomnia (ICD-10 - F51.01) Insomnia: Care Instructions material was published, Learning About Sleeping Well material was published, Insomnia: Care Instructions material was published, Learning About Sleeping Well material was published Major depression - Cymbalta 90 mg a day discuss and educated on medication options and patient would like to try rx with minimal weight gain Lexapro 10 mg daily for depression and anxiety Therapy continue Anxiety mild Ativan 0.5 mg as needed daily PRN and limit number # 10- no refill needed educated how to take rx as prescribed Visatral 10 mg twice a day as needed- patient reported not anxious daily - no refill needed- not using Primary Insomnia Melatonin 2.5 mg at night- stable Menopausal s/s increase anxiety http_s://www.nim[facility] .nih.gov/health/t opics/mental-heal th-medications http_s://www.[facility] .org/About-Mental -Illness/Treatmen ts/Mental-Health- Medications educated on all medications, benefits, side effects and risk, and educated on depression, anxiety, and ADHD, mood d/o and educated on compliance of medications, metabolic and movement d/o education appointment is, continue therapy discussion with patient about course of treatment and patient instructions. education on serotonin syndrome Discussed and educated pt regarding benzodiazepines are generally not intended for prolonged use and that use can cause tolerance, dependence, depression, and associated memory issues including dementias (this list is not exhaustive). Benzodiazepine use is generally not recommended concurrently with pain medications and/or other controlled substances due to SSRI/SNRI side effects discussed including but not limited to, gastric upset, nausea, vomiting, diarrhea and/or constipation, weight changes, sexual side effects including loss of libido, increased suicidal thoughts/behavior s in children and young adults, and serotonin syndrome. Medication Management and Follow-Up - Plan: - Schedule follow-up appointments every 1-3 months to monitor the patient's response to the medication regimen. - Reinforce the importance of avoiding recreational drug use due to potential neurotoxicity and interactions with prescribed medications. 09/09/2024 Essential hypertension (ICD-10 - I10) Major depression - Cymbalta 90 mg a day discuss and educated on medication options and patient would like to try rx with minimal weight gain Lexapro 10 mg daily for depression and anxiety Therapy continue Anxiety mild Ativan 0.5 mg as needed daily PRN and limit number # 10- no refill needed educated how to take rx as prescribed Visatral 10 mg twice a day as needed- patient reported not anxious daily - no refill needed- not using Primary Insomnia Melatonin 2.5 mg at night- stable Menopausal s/s increase anxiety http_s://www.nim[facility] .nih.gov/health/t opics/mental-heal th-medications http_s://www.[facility] .org/About-Mental -Illness/Treatmen ts/Mental-Health- Medications educated on all medications, benefits, side effects and risk, and educated on depression, anxiety, and ADHD, mood d/o and educated on compliance of medications, metabolic and movement d/o education appointment is, continue therapy discussion with patient about course of treatment and patient instructions. education on serotonin syndrome Discussed and educated pt regarding benzodiazepines are generally not intended for prolonged use and that use can cause tolerance, dependence, depression, and associated memory issues including dementias (this list is not exhaustive). Benzodiazepine use is generally not recommended concurrently with pain medications and/or other controlled substances due to SSRI/SNRI side effects discussed including but not limited to, gastric upset, nausea, vomiting, diarrhea and/or constipation, weight changes, sexual side effects including loss of libido, increased suicidal thoughts/behavior s in children and young adults, and serotonin syndrome. Medication Management and Follow-Up - Plan: - Schedule follow-up appointments every 1-3 months to monitor the patient's response to the medication regimen. - Reinforce the importance of avoiding recreational drug use due to potential neurotoxicity and interactions with prescribed medications. 01/30/2024 Other Learning About Depression Screening material was printed, Duloxetine Delayed Release Oral Capsule 60 mg (DULOXETINE - ORAL) material was published, Hydroxyzine Oral Tablet (HYDROXYZINE HYDROCHLORIDE - ORAL) material was published, Lorazepam Oral Tablet (LORAZEPAM - ORAL) material was published Major depression recurrent- Cymbalta 60 mg twice a day would like to look into change Cymbalta dose and add rx after vacation this month [place] will address next visit Anxiety- Ativan 2 mg hx 6 tablets at time- patient been breaking rx in half and quarters when take rx will decrease Ativan 0.5 mg as needed iniguez PRN and limit number # 10 educated how to take rx as prescribed will add Visatral 10 mg twice a day as needed- patient reported not anxious daily Primary Insomnia 2.5- 3 mg at night Menopausal s/s increase anxiety http_s://www.nimh .nih.gov/health/t opics/mental-heal th-medications http_s://www.rachael .org/About-Mental -Illness/Treatmen ts/Mental-Health- Medications educated on all medications, benefits, side effects and risk, and educated on depression, anxiety, and ADHD, mood d/o and educated on compliance of medications, metabolic and movement d/o education appointment is, continue therapy discussion with patient about course of treatment and patient instructions. education on serotonin syndrome Discussed and educated pt regarding benzodiazepines are generally not intended for prolonged use and that use can cause tolerance, dependence, depression, and associated memory issues including dementias (this list is not exhaustive). Benzodiazepine use is generally not recommended concurrently with pain medications and/or other controlled substances due to SSRI/SNRI side effects discussed including but not limited to, gastric upset, nausea, vomiting, diarrhea and/or constipation, weight changes, sexual side effects including loss of libido, increased suicidal thoughts/behavior s in children and young adults, and serotonin syndrome. Medication Management and Follow-Up - Plan: - Schedule follow-up appointments every 1-3 months to monitor the patient's response to the medication regimen. - Reinforce the importance of avoiding recreational drug use due to potential neurotoxicity and interactions with prescribed medications. 03/08/2024 Other Duloxetine Delayed Release Oral Capsule 60 mg (DULOXETINE - ORAL) material was published, Escitalopram Oral Tablet (ESCITALOPRAM - ORAL) material was published Major depression mild - will decrease Cymbalta 90 mg a day discuss and educated on medication options and patient would like to try rx with minimal weight gain Add Lexapro 5 mg daily for depression and anxiety Anxiety mild Ativan 0.5 mg as needed daily PRN and limit number # 10- no refill needed educated how to take rx as prescribed Visatral 10 mg twice a day as needed- patient reported not anxious daily - no refill needed Primary Insomnia Melatonin 2.5 mg at night- stable Menopausal s/s increase anxiety http_s://www.nimh .nih.gov/health/t opics/mental-heal th-medications http_s://www.rachael .org/About-Mental -Illness/Treatmen ts/Mental-Health- Medications educated on all medications, benefits, side effects and risk, and educated on depression, anxiety, and ADHD, mood d/o and educated on compliance of medications, metabolic and movement d/o education appointment is, continue therapy discussion with patient about course of treatment and patient instructions. education on serotonin syndrome Discussed and educated pt regarding benzodiazepines are generally not intended for prolonged use and that use can cause tolerance, dependence, depression, and associated memory issues including dementias (this list is not exhaustive). Benzodiazepine use is generally not recommended concurrently with pain medications and/or other controlled substances due to SSRI/SNRI side effects discussed including but not limited to, gastric upset, nausea, vomiting, diarrhea and/or constipation, weight changes, sexual side effects including loss of libido, increased suicidal thoughts/behavior s in children and young adults, and serotonin syndrome. Medication Management and Follow-Up - Plan: - Schedule follow-up appointments every 1-3 months to monitor the patient's response to the medication regimen. - Reinforce the importance of avoiding recreational drug use due to potential neurotoxicity and interactions with prescribed medications. Plan Of Treatment Next Appt Details Provider Name:Nerissa Pena , 12/31/2024 11:00:00 AM, [address] [facility] [address], [facility] [address], [place], [address], Insurance Providers Payer Name Payer Address Payer Phone Subscriber Number Group Number Insured Name Patient Relationship to Insured Coverage Start Date Coverage End Date [employer] [address] [place] [address] [id number] KENNETH MILAN Self - patient is the insured Medical (General) History Medical History History ICD Code Past Psychiatric History: Anxiety Disord er abdominal aortic aneurysm: No atrial fibrillation: Yes chronic fatigue syndrome: No essential tremor: No hyperlipidemia: Yes hypertension: No Parkinson's disease: No restless leg syndrome: No stroke: No subdural hematoma: No type 1 diabetes mellitus: No type 2 diabetes mellitus: No vitamin B12 deficiency: No vitamin D deficiency: No
== END ==
DX: M47.812 Spondylosis without myelopathy or radiculopathy, cervical region (principal); M46.92 Unspecified inflammatory spondylopathy, cervical region
CPT/HCPCS: 72050

== ENCOUNTER 2025-01-25 14:48 | Emergency (ER) | payer BC, SELFPAY ==
--- OUTSIDE RECORDS SUMMARY | 2025-01-25 14:50 | XMS_ITS | Encounter Summary ---
Author Organization [facility] Address [address] [place] [address] Phone Care Team Providers Care Development Lead Name Role Phone Ab Miller MD Primary Care Provider Mert Addison MD Unavailable Ab Vega MD Unavailable Margoth Gunter MD Unavailable Reason for Visit * Reason Comments Medication Refill Encounter Details Date Type Department Care Team (Late st Contact Info) Description 12/12/2023 Refill [facility] - Family [facility] [address] [place] [phone] Ab Miller MD [address] [address] Medication Refill Social History Tobacco Use Types Packs/Day Years Used Date Smoking Tobacco: Never Smokeless Tobacco: Never Alcohol Use Standard Drinks/Week Comments Yes 0 (1 standard drink = 0.6 oz pur e alcohol) Rare [facility] Utilities Answer Date Recorded In the past 12 months has e electric, gas, oil, or water company threatened to shut off services in your home? No 10/02/2023 Social Connection and Isolation Panel Answer Date Recorded In a typical week, how many times do you talk on the phone with family, friends, or neighbors? More than three times a week 10/02/2023 How often do you get togethe r with friends or relatives? Twice a week 10/02/2023 How often do you attend chur or anabaptism services? More than 4 times per year 10/02/2023 Do you belong to any clubs o r organizations such as muslim groups, unions, fraternal or athletic groups, or [...] Total Score - Questions 1-9 0 09/14 [facility] - Occupational Stress [...] place to sleep or slept in a fpc (including now)? No 10/02/2023 Education Answer Date Recorded What is the highest level of school you have completed or the highest degree you have received? Bachelor's degree (e.g., BA, AB, BS) 09/07/2020 Comments No Sex and Gender Information Value Date Recorded Sex Assigned at Female 09/12/2023 3:43 PM [employer] Legal Sex Female 9:54 AM [employer] Gender Identity Female 09/12/2023 3:43 PM [employer] Sexual Orientation Straight 09/12/2023 3: 43 PM [employer] Occupation Industry Job Start Date Job End [...] Dept 10/06/23 Office Visit Josiane Loza APRN, ACCOUNT DEVELOPMENT ASSOCIATE [facility] 10/03/23 Office Visit Ab [facility] 07/21/23 Office Visit Josiane Loza APRN, CNP [facility] 03/28/23 Office Visit Ab Miller MD [facility] Showing recent visits within past 365 days and meeting all other requirements Future Appointments No visits were found meeting these conditions. Showing future appointments within next 90 days and meeting all other requirements documented in this encounter Plan of Treatment Upcoming Encounters Date Type Department Care Team (Late st Contact Info) Description 04/04/2025 9:00 AM CDT Lab [facility] [address] [address] [facility] [place] [facility]/Ancillary 04/11/2025 11:00 AM CDT Office Visit [facility] [place] [address] [place] [address] Ab Miller MD [address] [address] documented as of this encounter Visit Diagnoses Not on filedocumented in this encounter Additional Health Concerns Infection Onset Date Last Indicated Resolved Time COVID - 19 07/28/2024 07/28/2024 07/28/2024 11:4 0 AM [employer] Influenza 07/28/2024 07/28/2024 08/04/2024 12:1 6 AM [employer] Assessment Noted Time PHQ-9 Depression Total Score: 0 10/03/19 24 8:58 AM CDT documented as of this encounter Care Teams Development Lead Relationship Specialty Start Date End Date Ab Miller MD #[address] [address] PCP - General Family Medicine 08/28/19 Mert Addison MD #[address] [address] Gastroenterology 08/28/19 Ab Vega MD [address] [place] [address] [address] [place] [address] Family Medicine 08/30/19 Margoth Gunter MD #2 [facility] [address] [place] [address] Consulting Physician Orthopaedic Surgery 09/30/24 documented as of this encounter
--- OUTSIDE RECORDS SUMMARY | 2025-01-25 14:50 | XMS_ITS | Clinical Summary ---
Author Organization [facility] Address [address] [place] [address] Phone Care Team Providers Care Design Technology Professor Name Role Phone Ab Miller MD Primary Care Provider [phone] Mert Addison MD Unavailable [phone] Ab Vega MD Unavailable Margoth Gunter MD [...] as needed for Wheezing. 8 g 1 022 Active levothyroxine (SYNTHROID) 100 MCG Tablet Take 1 Tablet by mouth daily. 90 Tablet 3 024 Active albuterol (PROVENTIL, VENTOLIN) (2.5 MG/3ML) 0.083% Nebulizer Soln 2.5 mg by Nebulization route every 4 hours as needed for Wheezing or Shortness of Breath. 025 Active Cholecalciferol (Vitamin D3) 50 mcg Tablet [...] times daily. Indications: Atrial Fibrillation 180 Tablet 025 Active carvedilol (COREG) 3.125 MG Tablet Take 1 Tablet by mouth 2 times daily. 180 Tablet 025 Active atorvastatin (LIPITOR) 20 MG Tablet Take 1 tablet by mouth once daily 90 Tablet 1 025 Active montelukast (SINGULAIR) 10 MG Tablet TAKE 1 TABLET BY MOUTH ONCE DAILY IN THE EVENING 90 Tablet 1 025 Active montelukast (SINGULAIR) 10 MG Tablet TAKE 1 TABLET BY MOUTH ONCE DAILY IN THE EVENING 90 Tablet 2 024 2024 Discontinued methylPREDNISol one (MEDROL DOSPACK) 4 MG Tablet Therapy Pack Use as per instructions on package. 21 Tablet 025 2024 Discontinued(T herapy completed) Active Problems No known active problems Resolved Problems Problem Noted Date Diagnosed Date Resolved Date Hypoxia 07/28/2024 07/29/2024 Encounters Date Type Department Care Team Description 01/06/2025 Refill [facility] [address] [place] [address] Ab Miller MD Medication Refill 12/31/2024 Results Follow-Up [facility] [address] [place] [address] Ab Miller MD STEF SCREENING BILATERAL DIGITAL W CAD W MARC 12/27/2024 2:52 PM CDT - 12/27/2024 11:59 PM CDT [facility] [address] [place] [phone] Ab Miller MD Discharge Disposition: Discharged to home or Selfcare 12/27/2024 Travel 12/03/2024 [facility] [address] [place] [address] Ab Miller MD Need Order 11/18/2024 [facility] [address] [place] [address] Jessica Tucker, TAYLOR, SWINE GENETICS RESEARCHER Pain in right elbow (Primary Dx); Cervicalgia; Spondylolisthesis of cervical region; Cervical radiculopathy; Segmental and somatic dysfunction of upper extremity 11/18/2024 [facility] [address] [place] [address] Ab Miller MD 11/15/2024 [facility] [address] [place] [address] Jessica Tucker APRN, SWINE GENETICS RESEARCHER 11/14/2024 Trans[facility] [address] [place] [phone] Jessica Tucker, TAYLOR, SWINE GENETICS RESEARCHER from Last 3 Months Immunizations Immunization Administration [...] Valent 9 Pneumococcal conjugate PCV20 , polysaccharide SAJ471 conjugate, adjuvant, PF 10/09/2024 RSV IMM GLOB [...] = 0.6 oz pur e alcohol) Rare [employer] Utilities Answer Date Recorded In the past 12 months has Glycobia, gas, oil, or water Application Craft threatened to shut off services in your home? No 10/07/2024 Social Connection and Isolation Panel Answer Date Recorded In a typical week, how many times do you talk on the phone with family, friends, or neighbors? More than three times a week 10/07/2024 How often do you get togethe r with friends or relatives? More than three times a week 10/07/2024 How often do you attend [facility] or synagogue services? 1 to 4 times per year 10/07/2024 Do you belong to any clubs o r organizations such as voodoo groups, unions, fraternal or athletic groups, or [...] Total Score - Questions 1-9 0 09/15 [facility] - Occupational Stress Questionnaire Answer Date Recorded [...] place to sleep or slept in a care home (including now)? No 10/02/2023 Housing Stability Vital [...] were you homeless or living in a care home (including now)? No 10/07/2024 Education Answer Date Recorded What is the highest level of school you have completed or the highest degree you have received? Bachelor's degree (e.g., BA, AB, BS) 09/07/2020 Comments No Sex and Gender Information Value Date Recorded Sex Assigned at Female 09/12/2023 3:43 PM ASSOCIATE PROFESSOR OF RADIOLOGY Legal Sex Female 9:54 AM ASSOCIATE PROFESSOR OF RADIOLOGY Gender Identity Female 09/12/2023 3:43 PM ASSOCIATE PROFESSOR OF RADIOLOGY Sexual Orientation Straight 09/12/2023 3: 43 PM ASSOCIATE PROFESSOR OF RADIOLOGY Occupation Industry Job Start Date Job End [...] 9:03 AM CDT Height 170.2 cm (5' 7) 10/09/2024 9:03 AM CDT Body Mass Index 35.87 10/09/2024 9:03 AM CDT Plan of Treatment Upcoming Encounters Date Type Department Care Team (Late st Contact Info) Description 04/04/2025 9:00 AM CDT Lab [facility] [address] [facility] [place] [address] Paulette Mendoza Lab/Ancillary 04/11/2025 11:00 AM CDT Office Visit [facility] [place] [address] [place] [address] Ab Miller MD [facility] [place] [address] Health Maintenance Due Date Last Done Comments TdaP Immunization 1961 Cologuard 2006 Immunochemical Fecal Occult Blood 2006 SARS-COV-2 Immunization ( season) 2024 05/04/2023, 2022, 12/14/2021, Additional history exists Influenza Immunization (#1) 03/17/202503/18, 03/28/2023, 2022, Additional history exists Mammogram 12/27/2025 12/27/2024, 11/15, 08/12/2022, Additional history exists Colonoscopy 06/28/2026 06/28/2016, 06/21/2016 Colorectal Cancer Screening 06/28/2026 Pap Smear 10/05/2026 10/06/2023, 04/17, 05/10/2017 Cervical Cancer Screening (CCS) 10/05/2028 HPV/Cotest 10/05/2028 10/06/2023 Hepatitis C Virus (HCV) Screening Completed 09/27/2022 Respiratory Syncytial Virus (RSV) Immunization (Adult) Completed 05/04/2023 Zoster Immunization Completed 07/14/2023, Pneumococcal Immunization (50+ years) Completed 10/09/2024, 04/08/2019 Pneumococcal Immunization Combined Discontinued 10/09/2024, 04/08/2019 Hepatitis B Immunization Aged Out No longer eligible based on patient's age to complete this topic Human Papillomavirus (HPV) Immunization Aged Out No longer eligible based on patient's age to complete this topic Meningococcal Immunization (ACWY) Aged Out No longer eligible based on patient's age to complete this topic Rotavirus Immunization Aged Out No lo nger eligible based on patient's age to complete this topic Procedures Procedure Name Priority Date/Time Associated Diagnosis Comments STEF SCREENING BILATERAL DIGITAL W CAD W MARC Routine 12/27/2024 3:26 PM CDT Visit for screening mammogram XR - SPINE 11/13/2024 12:00 AM CDT HUMAN PAPILLOMA VIRUS (HPV) Routine 10/06/2023 11:18 AM CDT Encounter for screening for human papillomavirus (HPV) PATHOLOGY CYTOLOGY BLEACH SUPERVISOR Routine 10/06/2023 11:18 AM CDT Screening for malignant neoplasm of cervix HEPATITIS PANEL ACUTE (AHP) Routine 09/27/2022 10:45 AM CDT Elevated LFTs HM COLONOSCOPY Routine 06/21/2016 from Last 3 Months or Most Recently Relevant to Health Maintenance Results * STEF SCREENING BILATERAL DIGITAL W CAD W MARC (12/27/2024 3:26 PM CDT) Anatomical Region Laterality Modality breast Bilateral Mammography 12/27/2024 3:20 PM CDT Narrative 12/30/2024 4:32 PM CDT - STEF SCREENING BILATERAL DIGITAL W CAD W MARC BILATERAL DIGITAL SCREENING MAMMOGRAM 3D/2D WITH CAD WITH MEDIOLATERAL OBLIQUE CRANIOCAUDAL: 12/27/2024 The study was acquired using digital technology and interpreted from soft copy. Current study was also evaluated with ICAD version 7.2. 2D digital mammographic views, as well as 3D digital tomosynthesis were performed in the CC and MLO projections. CLINICAL: Routine screening. Patient has no complaints. No personal history of cancer. Mother with postmenopausal breast cancer. Maternal aunt had breast cancer. COMPARISONS: Comparison is made to exams dated: 12/04/2023, 08/12/2022, and 07/20/2021 [facility]. BREAST TISSUE:There are scattered areas of fibroglandular density. FINDINGS: No significant masses, calcifications, or other findings are seen in either breast. There has been no significant interval change. IMPRESSION: NEGATIVE There is no mammographic evidence of malignancy. A 1 year screening mammogram is recommended. A letter will be sent to the patient with these results. The patient will be entered into a reminder system with a target due date of 1 year for her next screening exam. Electronically signed by: Leslye loyd/lauryn:12/27/2024 20:21:55 Neon Light Installer(s): RT Cody(R)(M), [facility] letter sent: Normal Exam Reading location: [facility] Mammogram BI-RADS: Category 1: Negative Procedure Note Leslye Thomas MD - 12/30/2024 - STEF SCREENING BILATERAL DIGITAL W CAD W MARC BILATERAL DIGITAL SCREENING MAMMOGRAM 3D/2D WITH CAD WITH MEDIOLATERAL OBLIQUE CRANIOCAUDAL: 12/27/2024 The study was acquired using digital technology and interpreted from soft copy. Current study was also evaluated with ICAD version 7.2. 2D digital mammographic views, as well as 3D digital tomosynthesis were performed in the CC and MLO projections. CLINICAL: Routine screening. Patient has no complaints. No personal history of cancer. Mother with postmenopausal breast cancer. Maternal aunt had breast cancer. COMPARISONS: Comparison is made to exams dated: 12/04/2023, 08/12/2022, and 07/20/2021 [facility]. BREAST TISSUE:There are scattered areas of fibroglandular density. FINDINGS: No significant masses, calcifications, or other findings are seen in either breast. There has been no significant interval change. IMPRESSION: NEGATIVE There is no mammographic evidence of malignancy. A 1 year screening mammogram is recommended. A letter will be sent to the patient with these results. The patient will be entered into a reminder system with a target due date of 1 year for her next screening exam. Electronically signed by: Leslye loyd/lauryn:12/27/2024 20:21:55 Neon Light Installer(s): RT Cody(R)(M), [facility] letter sent: Normal Exam Reading location: [place] Mammogram BI-RADS: Category 1: Negative Ab Miller MD IMG MAMMO ORDERABLES Final Re sult * XR - SPINE (11/13/2024 12:00 AM CDT) 11/13/2024 us Provider Scan IMG DIAGNOSTIC ORDERABLES Final Result SCAN * PATHOLOGY CYTOLOGY BLEACH SUPERVISOR (10/06/2023 11:18 AM CDT) SPECIMEN ADEQUACY Satisfactory for evaluation. Endocervical/transf ormation zone component is present. 10/17/2023 12:54 PM CDT [facility] DESCRIPTIVE DIAGNOSIS NEGATIVE FOR INTRAEPITHELIAL LESIONS OR MALIGNANCY. 10/17/2023 12:54 PM CDT [facility] at 1254 CDT Automated Examination Analysis of this sample has been assisted by an automated imaging and review system ([employer] Imaging System, [employer], [place], [place]). This case is further evaluated and finalized by a carpet measurer and/or pathologist. 10/17/2023 12:54 PM CDT [facility] Disclaimer The PAP smear is a screening [...] recommended every three years for women 21-29, Co-Testing, a PAP test in conjunction with an HPV (Human Papillomavirus) test for women ages 30-65, and no PAP or HPV testing for women under the age of 21 or older than 65 unless clinically indicated. 10/17/2023 12:54 PM CDT [facility] Case Report Gynecologic Cytology Report Case: [id number] Authorizing Provider: Josiane Loza APRN, Collected: 10/06/2023 11:18 AM SWINE GENETICS RESEARCHER Ordering Location: [facility] - Family Received: 10/06/2023 11:18 AM Medicine [facility] First Screen: Angelique Cisse Pathologist: Yassine Gray MD Specimen: TP Screen, Endocervix/Vaginal 10/17/2023 12:54 PM CDT [facility] Other (Endocervix/Vagi nal) Non-Phlebotomy Collection / Unknown 10/06/2023 11:18 AM CDT 10/06/2023 11:18 AM CDT us Josiane Loza APRN, CNP PATHOLOGY/CYTOLOGY O RDERABLES Final Result [facility] [address] [place] [address], [place] * HUMAN PAPILLOMA VIRUS (HPV) (10/06/2023 11:18 AM CDT) HPV TYPE 16 NEGATIVE NEGATIVE 10/09/2023 2:03 PM CDT [facility] Comment: A negative high-risk HPV result does [...] 18 NEGATIVE NEGATIVE 10/09/2023 2:03 PM CDT [facility] Comment: A negative high-risk HPV result does [...] PCR NEGATIVE NEGATIVE 10/09/2023 2:03 PM CDT [facility] Comment: The following Other High Risk types [...] OR DIAGNOSTIC SCREENING 10/09/2023 2:03 PM CDT [facility] Other Non-Phlebotomy Collection / Unknown 10/06/2023 11:18 AM CDT 10/06/2023 11:18 AM CDT Narrative [facility] - 10/09/2023 2:03 PM CDT Performed by Real-Time Polymerase Chain Reaction (PCR) on the Wander Albino 4800. This assay has been validated for use with post-aliquot samples from the [employer] T5000 processor. us Josiane Loza APRN, CNP LAB SEND OUTS Jacqueline l Result [facility] [address] [place] [address], [facility]1 [place] [address] * HEPATITIS PANEL ACUTE (AHP) (09/27/2022 10:45 AM CDT) HEPATITIS A IGM ANTIBODY NON DETECTED NON DETECTED [address] 09/28/2022 2:06 AM CDT [facility] Comment: IGM Antibodies to HAV not detected. Does not exclude early acute or recovered HAV infection. HEP B CORE AB (IGM) NON DETECTED NON DETECTED [address] 09/28/2022 2:06 AM CDT [facility] Comment:IGM anti-HBC not det ected. Does not exclude the possibility of exposure to or infection with HBV. HEPATITIS B SURFACE ANTIGEN NON DETECTED NON DETECTED [address] 09/28/2022 2:06 AM CDT [facility] Comment:A nonreactive test r esult does not exclude the possibility of exposure to or infection with Hepatitis B virus. A nonreactive test result in individuals with prior exposure to hepatitis B may be due to antigen levels below the detection limit of this assay or lack of antigen reactivity to the antibodies in this assay. hepatitis C antibody 0.15 <1 S/CO [address] B 09/28/2022 2:06 AM CDT [facility] Comment: Signal/Cutoff ratio < 0.79 is Nondetected Signal/Cutoff ratio 0.80-0.99 is Grayzone Signal/Cutoff ratio > 0.99 is Detected Supplemental assays are recommended if signal/cutoff ratio is >/=1.00. Signal/cutoff ratio result >/= 5.00 is 97% predictive of positivity for recombinant immunoblot assay (RIBA) and will be reported to the [place] Department of Public [facility] as required. Blood Venipuncture / Unknown 09/27/2022 10:45 AM CDT 09/27/2022 10:45 AM CDT us Ab Miller MD HEMATOLOGY ORDERABLES Final R esult [facility] [address] [place] [address], [place] * COLONOSCOPY (06/21/2016) Mert Addison MD PROCEDURE/MINOR SURGICAL OR DERABLES Final Result from Last 3 Months or Most Recently Relevant to Health Maintenance Insurance [facility] Advance Directives * Full Code (Latest Code Status on File) Date Activated Date Inactivated Comments 07/28/2024 5:36 PM CPR-Full Treat ment: FULL ARREST: Attempt Resuscitation/CPR wit intubation and mechanical ventilation. PRE-ARREST: Use entire range of life support measures to stabilize the patient. Care Teams Design Technology Professor Relationship Specialty Start Date End Date Ab Miller MD #[address] [address] PCP - General Family Medicine 08/28/19 Mert Addison MD #2 [facility] [address] [place] [address] Gastroenterology 08/28/19 Ab Vega MD [address] [place] [address] Family Medicine 08/30/19 Margoth Gunter MD #[address] [facility] [address] [place] [address] Consulting Physician Orthopaedic Surgery 09/30/24
--- OUTSIDE RECORDS SUMMARY | 2025-01-25 14:50 | XMS_ITS | Encounter Summary ---
Author Organization [facility] Address [address] [place] [address] Phone Care Team Providers Care Heat Treating Furnace Tender Name Role Phone Ab Miller MD Primary Care Provider Mert Addison MD Unavailable Ab Vega MD Unavailable Margoth Gunter MD Unavailable Reason for Visit * Reason Comments Medication Refill Encounter Details Date Type Department Care Team (Late st Contact Info) Description 02/04/2023 Refill [facility] - [facility] #2 [place] [phone] Ab Miller MD #[address] [address] Medication Refill Social History Tobacco Use Types [...] Sex Assigned at Female 09/12/2023 3:43 PM INSERTER PROMOTIONAL ITEM Legal Sex Female 9:54 AM INSERTER PROMOTIONAL ITEM Gender Identity Female 09/12/2023 3:43 PM INSERTER PROMOTIONAL ITEM Sexual Orientation Straight 09/12/2023 3: 43 PM INSERTER PROMOTIONAL ITEM Occupation Industry Job Start Date Job End [...] Info) Description 04/04/2025 9:00 AM CDT Lab [facility] #[address] [address] [facility] Lab/Ancillary 04/11/2025 11:00 AM CDT Office Visit [facility] [place] #[address] [place] [address] Ab Miller MD #[address] [address] documented as of this encounter Visit Diagnoses Not on filedocumented in this encounter Additional Health Concerns Infection Onset Date Last Indicated Resolved Time COVID - 19 07/28/2024 07/28/2024 07/28/2024 11:4 0 AM INSERTER PROMOTIONAL ITEM Influenza 07/28/2024 07/28/2024 08/04/2024 12:1 6 AM INSERTER PROMOTIONAL ITEM Assessment Noted Time PHQ-9 Depression Total Score: 0 09/28/19 9:00 AM CDT documented as of this encounter Care Teams Heat Treating Furnace Tender Relationship Specialty Start Date End Date Ab Miller MD #[address] [address] PCP - General Family Medicine 08/28/19 Mert Addison MD #2 [facility] [address] [place] [address] Gastroenterology 08/28/19 Ab Vega MD [address] [place] [address] [address] [place] [address] Family Medicine 08/30/19 Margoth Gunter MD #2 [address] [facility] [address] [place] [address] Consulting Physician Orthopaedic Surgery 09/30/24 documented as of this encounter
--- OUTSIDE RECORDS SUMMARY | 2025-01-25 14:50 | XMS_ITS | Continuity of Care Document ---
Author Organization [facility] Address [address] [place] [phone] Phone Care Team Providers Care Dealer Sales Rep Name Role Phone Immunization, [facility] Unavailable Unavailable [...] Date Provider Providers Copied on Encounter [facility], [address] [place] [address], [id number], tel:[phone] [facility] No Information 9 Immunization [facility]. [address] [place] [address], [id number]. tel:[phone] TRAVEL IMM CONSULTATION [facility], [address] [place] [address], [id number], [place] tel:[phone] [facility] No Information 9 Immunization [facility]. [address] [place] [address], [id number]. tel:[phone] Family History Family Member Type Diagnosis Age At Onset No Information Payers Payer name Insurance type Covered libertarian ID Authoriza tiheidi(s) [facility] [id number] Social History Type Description Quantity Date Captured [...]
--- OUTSIDE RECORDS SUMMARY | 2025-01-25 14:51 | XMS_ITS | Data Portability ---
Author Organization Company [employer] , [facility] Address [address] [place] [address] Assessment No assessment recorded. Plan of Treatment Reminders Order Date Submit Date Provider Last Modified By Organization Details Last Modified Time Details Appointments None recorded. Lab None recorded. Referral None recorded. Procedures None recorded. Surgeries None recorded. Imaging US, doc al 2021 022 [facility] (Radiology), [address] [place] [address], [address], 19:15:07 DEXA 2021 022 [facility] (Radiology), [address] [place], [address], 2 12:55:01 Medication Orders gabapentin 100 mg capsule 2021 022 [facility], [address] [place], [address], 16:07:41 Patient TargetsNo targets recorded. Patient InstructionsNo instructions recorded. Reason for Referral None Reported. Results Created Date Observation Date Name Description Value Unit Range Abnormal Flag Note LastModifiedBy Organization Detail LastModifiedTime 09/30/1909/29/2021 US, faby benitez No observ ation record ed. [id number] [address], [place], [address], 09/30/2021 14:02:06 Result Notes None recorded. Problems [...] YES ProblemSta tus: Current Dolores Casanova null, Company - [employer] IV 15:29:58 Problem Notes None recorded. Procedures Surgical History Date Name Laterality Status Provider Name and Address Organization Details Recorded Time 07/20/19 22 Most Recent Mammogram completed [employer] IV 09/15/2021 16:24:03 05/05/20 21 Date of Last Pap Smear completed [employer] IV 09/15/2021 16:24:03 Endometrial Ablation completed [employer] IV 09/15/2021 16:24:03 Appendectomy completed [employer] IV 09/15/2021 16:24:03 Imaging Results None recorded. Procedure Notes None recorded. Medical Equipment None Reported. Allergies Allergen ID Allergen Name Allergen Category Reaction Reaction Severity Criticality Documentation Date Start Date Code Code System Note Provider Name and Address Organization Details Recorded Time 171280 Bactrim medicatio n Not available Not available Not available 05/07/20212019 83269 9 RxNorm Sever ity: Moder ate; Not Available [facility] 01:05:10 412456 Lamisil medicatio n Not available Not available Not available 05/07/20212019 92152 6 RxNorm Sever ity: Moder ate; Not Available [facility] 01:05:10 278519 Tegretol medicatio n Not available Not available Not available 05/07/20212019 9 RxNorm Sever ity: Moder ate; Not Available [facility] 01:05:10 706534 Wellbutri n medicatio n Not available Not available Not available 05/07/20212019 17985 RxNorm Sever ity: Moder ate; Not Available [facility] 01:05:10 Medications Name Sig Start Date [...] t Available Singulair active Singulai r RxNorm: 875808 Refill Denied: No Refill DateOccu rred: 05/11/20 Edited by: ellen nd(Gilli land, Charity ) on 05/11/20 Stopped by: pgillila nd(Gilli land, Charity ) on Not Available Not Available Not Available omeprazol e (bulk) 09/29 completed omeprazo le (bulk) RxNorm: 283092 Refill Denied: No Refill DateOccu rred: 05/11/20 Edited by: ellen nd(Gilli land, Charity ) on 05/11/20 Stopped by: pgillila nd(Gilli land, Charity ) on Not Available Not Available Not Available Loratadin e-D active Loratadi ne-D Refill Denied: No Refill DateOccu rred: 05/11/20 Edited by: ellen nd(Gilli land, Charity ) on 05/11/20 Stopped by: pgillila nd(Gilli land, Charity ) on Not Available Not Available Not Available levothyro xine (bulk) 09/29 completed levothyr oxine (bulk) RxNorm: 4922938 Refill Denied: No Refill DateOccu rred: 05/11/20 Edited by: ellen nd(Gilli land, Charity ) on 05/11/20 Stopped by: joelillitamara nd(Gilli land, Charity ) on Not Available Not Available Not Available duloxetin e HCl (bulk) 09/15 completed DULoxeti ne HCl (bulk) RxNorm: 696204 Refill Denied: No Refill DateOccu rred: 05/11/20 Edited by: joelillitamara nd(Gilli land, Charity ) on 05/11/20 Stopped by: pgillila nd(Gilli land, Charity ) on Not Available Not Available Not Available Vitals Date Recorded Body height Body mass index (BMI) Body weight Body temperature Systolic And Diastolic Provider Name and Address Organization Details Last Updated DateTime 09/15/2021 170.18 cm 34.5 kg/m2 76050.3 2 g 97.8 [degF] 130/90 mm[Hg] Stephanie Weaver [facility] 16:27:02 Date Recorded Body height Provider Name an d Address Organization Details Last Updated DateTime 09/29/2021 170.18 cm Dolores Casanova [facility] 09/29/2021 15:28:58 Date Recorded Body mass index (BMI) Body weight Body temperature Systolic And Diastolic Provider Name and Address Organization Details Last Updated DateTime 09/29/2021 34.3 kg/m2 13142.73 g 97 [degF] 122/70 mm[Hg] Elda Sellers [facility] 09/29/2021 15:43:11 Social History Question Answer Notes LastModified by [employer] Details LastModified Time Tobacco Smoking Status Never Smoker Stephanie Weaver null, [employer] IV 09/15/2021 16:24:03 How Many Years Have You Consumed Alcohol? 30 Information not available 09/15/2021 What Type Of Diet Are You Following? SPECIFIC Information not available 09/15/2021 Which Illicit Or Recreational Drugs Have You Used? Prescription Pills Information not available 09/15/2021 What Is Your Relationship Status? Information not available 09/15/2021 Are You Sexually Active? No Information not available 09/15/2021 Sex: Unknown Functional Status Question Answer Note LastModified by [employer] Details LastModified Time What is your level of alcohol consumption? Occasional Information not available 09/15/2021 Do you or have you ever used e-cigarettes or vape? Never used electronic cigarettes Information not available 09/15/2021 What is your exercise level? Occasional Information [...] 16:24:02 Medical History Condition Response Hypothyroidism Y GERD (reflux) Y Anxiety Disorder Y Fibroids Y Asthma Y High Cholesterol Y Gynecological History Statement/Question Response Date of Last Pap Smear 05/05/2021 Most Recent Mammogram 07/20/2021 Age at Menarche 15 Date of LMP 02/28/2015 Obstetrics History GPAL:G 4 P 4 0 0 0 Type Value Full Term 4 Total 4 Past Encounters Encounter ID Performer Location Encounter Start Date Encounter Closed Date Diagnosis/Indication Diagnosis SNOMED-CT Code Diagnosis ICD10 Code Diagnosis Note [id number] Nadeen Mahmood MD [facility] [address] [place] [address] 09/15/2021 15:34:10 09/16/2021 12:58:39 Pain in pelvis 31865866 R10.2 Pelvic masses seen on recent CT, likely fibroids. Recommende d f/u in 1-2 weeks for pelvic u/s for further evaluation . Patient will also try to find CT report from 2014 for comparison to evaluate for growth of fibroids over time. Screening for osteoporosis 119487981 Z13.699 [id number] Nadeen Mahmood MD [facility] [address] [place] [address] 09/29/2021 14:55:27 09/29/2021 16:11:59 Pain in pelvis 53731184 R10.2 Pelvic masses seen on recent CT, likely fibroids. Recommende d f/u in 1-2 weeks for pelvic u/s for further evaluation . Patient will also try to find CT report from 2014 for comparison to evaluate for growth of fibroids over time. Menopausal symptom 31036 002 N95.1 C/o night sweats. Discussed possible treatment options, including HRT, SSRIs, gabapentin . Pt interested in trying gabapentin , Rx sent. F/u PRN. Health Concerns Section Related Observation LastModified by Organization Detai ls LastModified Time None Recorded Concern Status LastModified by Organization Details LastModified Time None Recorded Advance Directives Directive None Recorded Payers Insurance Date Sequence Insurance Name Policy Number Policy Mora Covered Member ID Mora Member ID Guarantor Name 10/13/2021 1 [employer] [id number] Fabiana Carney [id number] DeborahDebb anayeli Carney Notes Date Note Type Note Provider Name and Address Organization Details Recorded Time 09/15/2021 text/html Pelvic PainReported bypatient.Location :right Associated Symptoms:abdominal pain;back pain;nausea Mirian is here for constulation regarding a pelvic mass. She reports that she had a CT on 08/06/21 at [facility] for c/o abdominal pain, constipation, and nausea. CT report on patient's phone, showed a 3.2cm exophytic uterus mass as well as a 5.4cm fundal mass, likely fibroids. She reports her symptoms have since resolved with magnesium citrate for constipation. She was instructed to follow up with VOLLEYBALL [employer]ER due to CT findings. Mirian also reports that in April 2021, she had an episode of severe RLQ abd pain, 7-8/10. She reports the pain resolved spontaneously, but has reoccurred, less severe, on and off for at least one year. Wondering if this pain is due to the suspected fibroids seen on CT. She states she had a prior CT at [facility] in 2014 for other GI complaints, no report available at this time. Nadeen Mahmood MD [facility], [place], [address], [employer] IV 10/09/2021 21:05:54 09/29/2021 text/html Pelvic PainReported bypatient.Location :right Onset/Timing:>6 months Duration:intermitt ent Quality:sharp; cramping; like menstrual cramps Associated Symptoms:back pain;constipation Mirian is here for constulation regarding a pelvic mass. She reports that she had a CT on 08/06/21 at [facility] for c/o abdominal pain, constipation, and nausea. CT report on patient's phone, showed a 3.2cm exophytic uterus mass as well as a 5.4cm fundal mass, likely fibroids. She reports her symptoms have since resolved with magnesium citrate for constipation. She was instructed to follow up with [employer] due to CT findings. Mirian also reports that in April 2021, she had an episode of severe RLQ abd pain, 7-8/10. She reports the pain resolved spontaneously, but has reoccurred, less severe, on and off for at least one year. Wondering if this pain is due to the suspected fibroids seen on CT. She states she had a prior CT at [facility] in 2014 for other GI complaints, no report available at this time. Mirian also c/o night sweats, asking about possible treatment options for this. Nadeen Mahmood MD [facility], [place], [address], [facility] 10/09/2021 21:03:14 OBGyn Episode No OBEpisode recorded.
--- OUTSIDE RECORDS SUMMARY | 2025-01-25 14:51 | XMS_ITS | Encounter Summary ---
Author Organization [facility] Address [address] [place] [address] Phone Care Team Providers Care Primary Substance Abuse Counselor Name Role Phone Ab Miller MD Primary Care Provider [phone] Mert Addison MD Unavailable Ab Vega MD Unavailable [phone] Margoth Gunter MD Unavailable Encounter Details Date Type Department Care Team (Late st Contact Info) Description 11/14/2024 Transcribe Orders [facility] Central Scheduling [address] [place] [address] Jessica Tucker, FURNACE CLEANER, COMMERCIAL INTELLIGENCE MANAGER [address] [place] [address] Social History Tobacco Use Types Packs/Day Years Used Date Smoking Tobacco: Never Smokeless Tobacco: Never Alcohol Use Standard Drinks/Week Comments Yes 0 (1 standard drink = 0.6 oz pur e alcohol) Rare [facility] Utilities Answer Date Recorded In the [...] 10/07/2024 How often do you attend chur or restorationism services? 1 to 4 times per year 10/07/2024 Do you belong to any clubs o r organizations such as holiness groups, unions, fraternal or athletic groups, or [...] Total Score - Questions 1-9 0 09/15 [facility] - Occupational Stress Questionnaire Answer [...] place to sleep or slept in a detention (including now)? No 10/02/2023 Housing Stability Vital Sign Answer Doug e Recorded In the last 12 months, was t here a time when you were not able to pay the mortgage or rent on time? No 10/07/2024 In the past 12 months, how m any times have you moved where you were living? 0 10/07/2024 At any time in the past 12 m [facility], were you homeless or living in a detention (including now)? No 10/07/2024 Education Answer Date Recorded What is the highest level of school you have completed or the highest degree you have received? 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 Not on file Not on file documented as of this encounter Plan of Treatment Upcoming Encounters Date Type Department Care Team (Late st Contact Info) Description 04/04/2025 9:00 AM CDT Lab [facility] [facility] [address] [place] [address] [facility] M[facility] Lab/Ancillary 04/11/2025 11:00 AM CDT Office Visit [facility] - [facility] [place] [address] Ab Miller MD #2 [facility] [address] [place] [address] documented as of this encounter Visit Diagnoses Not on filedocumented in this encounter Additional Health Concerns Assessment Noted Time PHQ-9 Depression Total Score: 0 10/10/19 25 10:08 AM CDT documented as of this encounter Care Teams Primary Substance Abuse Counselor Relationship Specialty Start Date End Date Ab Miller MD #[address] [address] PCP - General Family Medicine 08/28/19 Mert Addison MD #[address] [address] Gastroenterology 08/28/19 Ab Vega MD [address] [place] [address] Family Medicine 08/30/19 Margoth Gunter MD #[address] [address] Consulting Physician Orthopaedic Surgery 09/30/24 documented as of this encounter
--- OUTSIDE RECORDS SUMMARY | 2025-01-25 14:51 | XMS_ITS | Encounter Summary ---
Author Organization [facility] Address [address] [place] [address] Phone Care Team Providers Care Wood Experimental Mechanic Name Role Phone Ab Miller MD Primary Care Provider [phone] Mert Addison MD Unavailable Ab Vega MD Unavailable Margoth Gunter MD Unavailable Encounter Details Date Type Department Care Team (Late st Contact Info) Description 12/31/2024 Results Follow-Up [facility] - Family Medicine [facility] [address] [place] [address] Ab Miller MD #[address] [address] STEF SCREENING BILATERAL DIGITAL W CAD W MARC Social History Tobacco Use Types Packs/Day Years Used Date Smoking Tobacco: Never Smokeless Tobacco: Never Alcohol Use Standard Drinks/Week Comments Yes 0 (1 standard drink = 0.6 oz pur e alcohol) Rare [facility] Utilities Answer Date Recorded In the [...] How often do you attend chur or jew services? 1 to 4 times per year 10/07/2024 Do you belong to any clubs o r organizations such as mandaeism groups, unions, fraternal or athletic groups, or [...] Total Score - Questions 1-9 0 09/15 [facility] ional Health - Occupational Stress [...] slept in a retirement (including now)? No 10/02/2023 Housing Stability Vital Sign Answer Doug e Recorded In the last 12 months, was t here a time when you were not able to pay the mortgage or rent on time? No 10/07/2024 In the past 12 months, how m any times have you moved where you were living? 0 10/07/2024 At any time in the past 12 m [facility], were you homeless or living in a retirement (including now)? No 10/07/2024 Education Answer Date Recorded What is the highest level of school you have completed or the highest degree you have received? 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 Not on file documented as of this encounter Plan of Treatment Upcoming Encounters Date Type Department Care Team (Late st Contact Info) Description 04/04/2025 9:00 AM CDT Lab [facility] [address] [place] [address] Quinton Mendoza Lab/Ancillary 04/11/2025 11:00 AM CDT Office Visit [facility] - Family [facility] #[address] [place] [address] Ab Miller MD [address] [address] documented as of this encounter Visit Diagnoses Not on filedocumented in this encounter Additional Health Concerns Assessment Noted Time PHQ-9 Depression Total Score: 0 10/10/19 10:08 AM CDT documented as of this encounter Care Teams Wood Experimental Mechanic Relationship Specialty Start Date End Date Ab Miller MD #[address] [address] PCP - General Family Medicine 08/28/19 Mert Addison MD #[address] [address] Gastroenterology 08/28/19 Ab Vega MD [address] [place] [address] Family Medicine 08/30/19 Margoth Gunter MD #[address] [address] Consulting Physician Orthopaedic Surgery 09/30/24 documented as of this encounter
--- OUTSIDE RECORDS SUMMARY | 2025-01-25 14:51 | XMS_ITS | Patient Health Record ---
Author Organization [facility] [place] Address [address] [place] [address] Care Team Providers Care Demolition Specialist Name Role Phone Ab Miller MD Primary Care Provider UnavailNerissa Hill Unavailable [phone] Allergies Allergen (clinical drug ingredient) Drug/Non Drug [...] Oxazepam (BZO) N 0 - 300 ng/ml 8-csaqryhlpn-4,2-euioratp-7,3-diphenylpyrrolidine (ROBERT P) N 0 - 300 ng/ml Methamphetamine (MET) N 0 - 1000 ng/ml Methylenedioxymethamphetamine (MDMA) N 0 - 500 ng/ml Morphine (MOP 300/[id number]) N 0 - 300 ng/ml Methadone (MTD) [...] Oxazepam (BZO) N 0 - 300 ng/ml 2-trjnpsrwcr-5,9-qqhvmble-9,3-diphenylpyrrolidine (ROBERT P) N 0 - 300 ng/ml Methamphetamine (MET) N 0 - 1000 ng/ml Methylenedioxymethamphetamine (MDMA) N 0 - 500 ng/ml Morphine (MOP 300/[id number]) N 0 - 300 ng/ml Methadone (MTD) N 0 - 300 ng/ml Phencyclidine (PCP) N 0 - 25 ng/ml Nortriptyline (TCA) N 0 - 1000 ng/ml Oxycodone N 0 - 300 ng/ml x N 0 - 300 ng/ml Reason For Referral No Information Medications Medication SIG (Take, Route, Frequency, Duration) Notes Start Date End Date Status Loratadine 10 MG 1 tablet Orally Once a day Active Pepcid 20 MG 1 tablet at bedtime as needed Orally Once a day Active Vitamin D 50 MCG (2000 UT) 1 tablet Orally Once a day Active Colace 100 MG 1 capsule as needed Orally Once a day Active Gabapentin 300 MG TAKE 1 CAPSULE BY MOUTH THREE TIMES DAILY (MAY CAUSE FATIGUE. DO NOT TAKE AND DRIVE OR OPERATE MACHINERY) Oral; Duration: 30 Days Active DULoxetine HCl 30 MG 1 capsule Orally Once a day; Duration: 90 days Active Vitamin E 400 UNIT 1 capsule Orally Once a day Active Vitamin B + C Complex - as directed Orally Active Cymbalta 60 MG 1 capsule Orally Once a day; Duration: 90 days Active Calcium 600 MG 1 tablet with meals Orally daily Active LORazepam 0.5 MG 1 tablet Orally Once a day; Duration: 10 days As needed d/c 2 mg dose 01/30/2024 Active Escitalopram Oxalate 10 MG 1 tablet Orally Once a day; Duration: 90 days Active Vitamin B 12 500 MCG 1 tablet Orally Onc e a day Active Escitalopram Oxalate 5 MG Take 1 tablet by mouth once daily for 30 days; Duration: 30 Active Black Cohosh Root 450 MG as directed Orally Active Nitrofurantoin Monohyd Macro 100 MG Oral Active Co Q 10 100 MG as directed Orally Active hydrOXYzine HCl 10 MG 1 tablet Oral Once a day; Duration: 30 days PRN 01/30/2024 Active Gabapentin 100 MG Oral Ac tive Levothyroxine Sodium 100 MCG Oral Active Melatonin 5 MG 1 tablet in the evening Orally Once a day Active Doxycycline Hyclate 100 MG Oral Active Motrin Active Eliquis 5 MG Take 1 tablet Oral twice a day Active Montelukast Sodium 10 MG Oral Active Carvedilol 6.25 MG 1 tablet with food Orally Twice a day Active ProAir HFA 108 (90 Base) MCG/ACT Inhalation PRN Active Singulair 10 MG 1 tablet Orally Once a day Active Lubiprostone 24 MCG 1 capsule with food and water Orally Twice a day Active Atorvastatin Calcium 40 MG 1 tablet Orally Once a day Active Social History Tobacco Use: Social History [...] Problem Status W/U Status Risk Notes Problem Primary insomnia (9356275) Primary insomnia (F51.01) Active confirmed Problem Generalized anxiety disorder (15624322) LOUIS (generalized anxiety disorder) (F41.1) Active confirmed Problem Mild recurrent major depression (05274361) MDD (major depressive disorder), recurrent episode, mild (F33.0) Active confirmed Problem Essential hypertension (81916158) Essential hypertension (I10) Active confirmed Vital Signs Heart Rate 85 /min 12/31/2024 Respiratory Rate 16 /min 12/31/2024 Height-cm 170.18 cm 12/31/2024 Blood pressure diastolic 84 mm Hg 12/31/2024 Weight-kg 104.37 kg 12/31/2024 Height 67 in 12/31/2024 Blood pressure systolic 130 mm Hg 12/31/2024 Weight 230.1 lbs 12/31/2024 BMI 36.03 kg/m2 12/31/2024 Encounters Encounter Location Date Provider Diagnosis [place] [address] [address] [facility] [address] [address] 01/30/2024 Nerissa Thery MDD (major depressiv e disorder), recurrent episode, mild F33.0 ; LOUIS (generalized anxiety disorder) F41.1 and Primary insomnia F51.[address] [address] 03/08/2024 Nerissa Thery MDD (major depressiv e disorder), recurrent episode, mild F33.0 ; LOUIS (generalized anxiety disorder) F41.1 and Primary insomnia F51.[address] [address] 04/12/2024 Nerissa Thery MDD (major depressiv e disorder), recurrent episode, mild F33.0 ; LOUIS (generalized anxiety disorder) F41.1 and Primary insomnia F51.01 [place] [id number] [address] 07/15/2024 Nerissa Thery MDD (major depressiv e disorder), recurrent episode, mild F33.0 ; LOUIS (generalized anxiety disorder) F41.1 ; Primary insomnia F51.01 and Essential hypertension I10 [address] [address] 09/09/2024 Nerissa Thery MDD (major depressiv e disorder), recurrent episode, mild F33.0 ; LOUIS (generalized anxiety disorder) F41.1 ; Primary insomnia F51.01 and Essential hypertension I10 [place] [id number] [facility] [address] [address] 12/31/2024 Nerissa Thery MDD (major depressiv e disorder), recurrent episode, mild F33.0 ; LOUIS (generalized anxiety disorder) F41.1 ; Primary insomnia F51.01 and Essential hypertension I10 [address] [place] [address] 04/07/2024 Nerissa Pena [facility] [address] [place] [address] 09/09/2024 Nerissa Pena [facility] [address] [place] [address] 09/11/2024 Nerissa Becky Assessments Encounter Date Diagnosis (ICD Code) Assessment Notes Treatment Notes Treatment Clinical Notes Section Notes 07/15/2024 LOUIS (generalized anxiety disorder) (ICD-10 - F41.1) [...] potential neurotoxicity and interactions with prescribed medications. 12/31/2024 MDD (major depressive disorder), recurrent episode, mild [...] Depression Treatment: Care Instructions material was published 1. Major depression - Cymbalta 90 mg a day stable discuss and educated on medications Lexapro 10 mg daily for depression and anxiety Therapy continue 2. Anxiety mild stable Ativan 0.5 mg as needed daily PRN and limit number # 10- no refill needed- reported not taking rx educated how to take rx as prescribed Visatral 10 mg twice a day as needed- patient reported not anxious daily - no refill needed- not using 3. Primary Insomnia Melatonin 2.5 mg at night- [...] neurotoxicity and interactions with prescribed medications. 01/30/2024 LOUIS (generalized anxiety disorder) (ICD-10 - F41.1) Generalized Anxiety Disorder: Care Instructions material was published, Learning About Anxiety Disorders material was published, Learning About Transcranial Magnetic Stimulation (TMS) material was published Major depression recurrent- Cymbalta 60 mg twice a day would like to look into change Cymbalta dose and add rx after vacation this month [place] will address next visit Anxiety- Ativan 2 [...] and add rx after vacation this month [place] will address next visit Anxiety- Ativan 2 [...] and add rx after vacation this month [place] will address next visit Anxiety- Ativan 2 [...] potential neurotoxicity and interactions with prescribed medications. 12/31/2024 LOUIS (generalized anxiety disorder) (ICD-10 - F41.1) Generalized Anxiety Disorder: Care Instructions material was published, Learning About Anxiety Disorders material was published, Learning About Transcranial Magnetic Stimulation (TMS) material was published, Learning About Generalized Anxiety Disorder material was published, Generalized Anxiety Disorder: Care Instructions material was published, Learning About Anxiety Disorders material was published, Learning About Transcranial Magnetic Stimulation (TMS) material was published 1. Major depression - Cymbalta 90 mg a day stable discuss and educated on medications Lexapro 10 mg daily for depression and anxiety Therapy continue 2. Anxiety mild stable Ativan 0.5 mg as needed daily PRN and limit number # 10- no refill needed- reported not taking rx educated how to take rx as prescribed Visatral 10 mg twice a day as needed- patient reported not anxious daily - no refill needed- not using 3. Primary Insomnia Melatonin 2.5 mg at night- [...] potential neurotoxicity and interactions with prescribed medications. 12/31/2024 Primary insomnia (ICD-10 - F51.01) Insomnia: Care Instructions material was published, Learning About Sleeping Well material was published, Insomnia: Care Instructions material was published, Learning About Sleeping Well material was published 1. Major depression - Cymbalta 90 mg a day stable discuss and educated on medications Lexapro 10 mg daily for depression and anxiety Therapy continue 2. Anxiety mild stable Ativan 0.5 mg as needed daily PRN and limit number # 10- no refill needed- reported not taking rx educated how to take rx as prescribed Visatral 10 mg twice a day as needed- patient reported not anxious daily - no refill needed- not using 3. Primary Insomnia Melatonin 2.5 mg at night- [...] potential neurotoxicity and interactions with prescribed medications. 12/31/2024 Essential hypertension (ICD-10 - I10) 1. Major depression - Cymbalta 90 mg a day stable discuss and educated on medications Lexapro 10 mg daily for depression and anxiety Therapy continue 2. Anxiety mild stable Ativan 0.5 mg as needed daily PRN and limit number # 10- no refill needed- reported not taking rx educated how to take rx as prescribed Visatral 10 mg twice a day as needed- patient reported not anxious daily - no refill needed- not using 3. Primary Insomnia Melatonin 2.5 mg at night- [...] and add rx after vacation this month [place] will address next visit Anxiety- Ativan 2 [...] mg at night Menopausal s/s increase anxiety [email or web address] .nih.gov/health/t opics/mental-heal th-medications [email or web address]://[email or web address] .org/About-Mental -Illness/Treatmen ts/Mental-Health- [...] potential neurotoxicity and interactions with prescribed medications. 12/31/2024 Other Gait, Strength, and Balance Training ExercisesThis handout provides simple exercises to improve your gait, strength, and balance. Theseexercises can help prevent falls, improve mobility, and enhance overall function. Perform them in asafe space, use support if needed, and stop if you feel pain or dizziness.1. Gait Training Exercises- Walk in a straight line for 10-20 feet, heel-to-toe.- Step over small objects (cones or rolled towels).- Practice walking sideways and backwards.- Use a treadmill if available, under supervision.2. Balance Exercises- Stand on one foot for 10-30 seconds; switch legs.- Walk heel-to-toe in a straight line.- Use a balance board or cushion to challenge stability.- Practice rising from a chair without using your hands.3. Strength Training Exercises- Fwa-th-qarap: rise from a chair repeatedly.- Wall push-ups: stand at arm's length from a wall and push.- Step-ups on a low step or stairs.- Leg lifts while seated or lying down.Consult your primary care provider (PCP) before starting these exercises, especially if you havemedical conditions or difficulty performing them 1. Major depression - Cymbalta 90 mg a day stable discuss and educated on medications Lexapro 10 mg daily for depression and anxiety Therapy continue 2. Anxiety mild stable Ativan 0.5 mg as needed daily PRN and limit number # 10- no refill needed- reported not taking rx educated how to take rx as prescribed Visatral 10 mg twice a day as needed- patient reported not anxious daily - no refill needed- not using 3. Primary Insomnia Melatonin 2.5 mg at night- [...] Next Appt Details Provider Name:Nerissa Pena , 04/17/2025 11:00:00 AM, [address] [facility] [address], [place], [address], Insurance Providers Payer Name Payer Address Payer Phone Subscriber Number Group Number Insured Name Patient Relationship to Insured Coverage Start Date Coverage End Date [facility] [address] [place] [address] [id number] KENNETH MILAN Self - patient is the [...]
--- OUTSIDE RECORDS SUMMARY | 2025-01-25 14:51 | XMS_ITS | Clinical Summary ---
Author Organization [facility] Address [address] [place] [address] Care Team Providers Care Mechanical Energy Engineer Name Role Phone Ab Miller MD Primary Care Provider [phone] Patito Richey DO Unavailable [phone] Source Comments [facility] Narrative,non-owned Affiliates and Associated Physician Practices is amultiple site organization consisting of ambulatory clinics and hospital sitesin [place], [place], [place] and [place]. This disclosure is being madepursuant to the Care Everywhere program and may not contain all information available regarding this patient. Last updated 18.[facility] Narrative Allergies Active Allergy Reactions Criticality Noted Date [...] 1 (one) tablet by mouth at bedtime 9 Active levothyroxine (SYNTHROID) 100 MCG tablet Take 1 (one) tablet by mouth daily before breakfast Active famotidine (Pepcid) 20 MG tablet Take 1 (one) tablet by mouth once daily Active vitamin E (TOCOPHERYL) 100 UNIT capsule Take by mouth once daily Active Flaxseed, Linseed, (Flax Seeds) POWD Take flax seed powder as needed to maintain bowel motiltiy. 425 g 2 Active Eliquis 5 MG tablet Take 1 tablet by mouth twice daily 180 tablet 3 4 Active vitamin B-12 (Cyanocobalamin ) 500 MCG tablet 1 tablet Orally Once a day Active docusate sodium (Colace) 100 MG capsule 1 capsule as needed Orally Once a day Active hydrOXYzine HCl (Atarax) 10 MG tablet Take 1 (one) tablet by mouth as needed 4 Active melatonin 5 MG tablet Take 1 (one) tablet by mouth at bedtime Active DULoxetine (Cymbalta) 60 MG capsule Take 1 (one) capsule by mouth once daily In am Active DULoxetine (Cymbalta) 30 MG capsule Take 1 (one) capsule by mouth at bedtime 4 Active B Complex-C (VITAMIN B + C COMPLEX PO) Take 1 tablet by mouth once daily Active Vitamin D3, cholecalciferol , 50 MCG (2000 UT) tablet Take 1 (one) tablet by mouth once daily Active carvedilol (Coreg) 6.25 MG tablet Take 1 (one) tablet by mouth 2 times daily 180 tablet 3 4 Active atorvastatin (Lipitor) 40 MG tablet Take 1 (one) tablet by mouth once daily 90 tablet 3 4 Active escitalopram (Lexapro) 10 MG tablet Take 1 (one) tablet by mouth once daily Active estradiol (Estrace) 0.1 MG/GM vaginal cream Insert 1 g into the vagina at bedtime Nightly for two weeks, then two nights a week 42.5 g 11 4 Active albuterol HFA (Proventil; Ventolin; Proair) 108 (90 Base) MCG/ACT inhaler Inhale 2 (two) puffs by mouth every 6 hours as needed Active lubiprostone (Amitiza) 24 MCG capsule Take 1 capsule by mouth twice daily 60 capsule 11 5 Active cetirizine (ZyrTEC) 10 MG tablet Take 1 (one) tablet by mouth once daily Active gabapentin (Neurontin) 300 MG capsule TAKE 1 CAPSULE BY MOUTH THREE TIMES DAILY (MAY CAUSE FATIGUE. DO NOT TAKE AND DRIVE OR OPERATE MACHINERY) 5 Active metoclopramide (Reglan) 10 MG tablet Take 1 (one) tablet by mouth 3 times daily as needed Active amoxicillin (Amoxil) 500 MG capsule Take 1 (one) capsule by mouth 3 times daily 5 Active ketoconazole (NIZORAL) 2 % shampoo Apply to affected area once daily as needed 0 01/08/20 25 Discontinu ed(List Clean-Up) Active Problems Problem Noted Date Diagnosed Date Essential hypertension 01/14/2025 Generalized anxiety disorder 01/14/2025 Major depressive disorder, recurrent, mild 01/14 Primary insomnia 01/14/2025 Sleep apnea, unspecified 05/16/2023 Snoring 05/16/2023 Hypersomnia 05/16/2023 Atrial fibrillation 05/16/2023 Adult onset hypothyroidism 04/19/2022 Allergic rhinitis 04/19/2022 Depression 04/19/2022 Dermatomycosis 04/19/2022 Dysphagia 04/19/2022 Exercise-induced asthma 04/19/2022 GERD (gastroesophageal reflux disease) 2 Palpitations 04/19/2022 Class 2 obesity due to exces s calories without serious comorbidity with body mass index (BMI) of 35.0 to 35.9 in adult 04/19/2022 Hyperlipidemia LDL goal <100 04/19/2022 Heat rash 04/19/2022 Vitamin D deficiency [...] Encounters Date Type Department Care Team Description 01/15/2025 9:45 AM CDT Office Visit [facility] - Orthopedic Surgery [address] [place] [phone] Dorys Haro PA-C Lateral epicondylitis of right elbow (Primary Dx) 01/15/2025 Orders Only [facility] - Orthopedic Surgery [address] [place] [phone] Brett Camacho MD Cervical spondylosis ; Cervical radiculopathy 01/15/2025 Travel 01/14/2025 10:30 AM CDT Office Visit [facility] - GI [facility] [place] [phone] Nerissa Mcgraw MD Screening for colon cancer (Primary Dx) 01/14/2025 Travel 01/07/2025 11:48 AM CDT - 01/07/2025 11:59 PM CDT Hospital Encounter [facility] - Outside Imaging Discharge Disposition: Home or Self Care 01/07/2025 11:00 AM CDT Office Visit [facility] - Orthopedic Surgery [address] [place] [phone] Sandy Egan PA-C Neck pain (Primary Dx); Oral phase dysphagia; Cervical spondylosis; Cervical radiculopathy; Chronic neck pain 01/07/2025 Travel 01/07/2025 Telephone [facility] - Orthopedics [facility] [place] [phone] Samara Hess RN Imaging 12/03/2024 3:45 PM CDT Office Visit [facility] [address] [facility] [address] [place] [address] Patito Richey DO PAF (paroxysmal atrial fibrillation) (HCC) (Primary Dx); Primary hypertension; Mixed hyperlipidemia 11/27/2024 2:00 PM CDT Office Visit [facility] - Orthopedic Surgery [address] [place] [phone] Dorys Haro PA-C Lateral epicondylitis of right elbow (Primary Dx) 11/27/2024 Travel 11/22/2024 Orders Only [facility] [address] [place] [phone] Dorys Haro PA-C Right elbow pain 11/07/2024 Refill [facility] [place] [address] [place] [address] Nerissa Mcgraw MD Refill Request from Last 3 Months Immunizations Immunization Administration Dates Next Due INFLUENZA VACCINE, TRIV. (AF LURIA, FLUZONE TRIVALENT; 6MO+) (IIV3) 04/01/2019,05/17/2015,04/25/2014 COVID PFIZER BIVALENT 12Y+ 30mcg/0.3ML 2022 FLU VACCINE TRI IIV3 SPLIT P F IM (FLUVIRIN) 04/08/2024 HEP A PED/ADULT VACCINE 04/08/2019 HEP A [...] No Alcohol Use Standard Drinks/Week Comments Yes 1 [...] Date Recorded PHQ2 TOTAL SCORE 0 02/20/2023 [facility] [place] of Occupat ional Health - Occupational Stress [...] place to sleep or slept in a fci (including now)? No 11/15/2022 Education Answer Date [...] Sign Reading Time Taken Comments Blood Pressure 150/76 01/14/2025 10:15 AM CDT Pulse 66 01/14/2025 10:15 AM CDT Temperature 37 C (98.6 F) 01/14/2025 10:15 AM CDT Respiratory Rate 12 01/14/2025 10:1 5 AM CDT Oxygen Saturation 91% 01/14/2025 10: 15 AM CDT Inhaled Oxygen Concentration - - Weight 106.2 kg (234 lb 1.6 oz) 025 10:15 AM CDT Height 168.9 cm (5' 6.5) 01/14/2025 10 :15 AM CDT Body Mass Index 37.22 01/14/2025 10:15 AM CDT Plan of Treatment Upcoming Encounters Date Type Department Care Team (Late st Contact Info) Description 01/27/2025 2:15 PM CDT Office Visit [facility] - Orth[facility] Surgery [address] [place] [address] Brett Camacho MD [address] [facility] [place] [address] 01/27/2025 2:15 PM CDT Appointment [facility] Orthopedics [address] [place] [phone] Brett Camacho MD [address] [place] [address] [place] [address] 06/04/2025 10:30 AM TAVERN CAR ATTENDANT Office Visit [facility] Heart & Vascular Care [address] [place] [address] Patito Richey DO [address] [facility] [address] [place] [address] 07/23/2025 8:55 AM TAVERN CAR ATTENDANT Hospital Encounter [facility] ENDOSCOPY [address] [place] [phone] Nerissa Mcgraw MD [address] [place] [address] [address] [place] [phone] Surgery General 07/23/2025 8:55 AM TAVERN CAR ATTENDANT - 07/23/2025 9:45 AM TAVERN CAR ATTENDANT Surgery [facility] ENDOSCOPY [address] [place] [phone] Nerissa Mcgraw MD [address] [place] [address] [address] [place] [phone] COLONOSCOPY SCREEN w/ sydnee Scheduled Procedures Name Priority Associated Diagnoses Date/Ti me COLONOSCOPY SCREEN Screen for colon cancer 07/23/2025 8:55 AM TAVERN CAR ATTENDANT Health Maintenance Due Date Last Done Comments COLOGUARD (AGES 45-75) - COLON CA SCREENING 1961 COLON MONITORING 1961 COLONOSCOPY - COLON CA SCREENING 1961 CT COLONOGRAPHY - COLON CA SCREENING 1961 Colorectal Cancer Screening 1961 FIT - COLON CA SCREENING 1961 FLEX SIG - COLON CA SCREENING 1961 HIV SCREENING 1976 PNEUMOCOCCAL VACCINE 50+ (2 of 2 - PCV) 04/08/2020 04/08/2019 Respiratory Syncytial Virus (RSV) Vaccine Pt: or over 60 yrs (1 - Risk 60-74 years 1-dose series) 2021 DTAP/TDAP/TD VACCINES (4 - Td or Tdap) 01/30/2022 01/31/2012, 01/31/2012, 01/31/2012 COVID-19 VACCINE ( season) 2024 2022, 12/14/2021, 04/15/2021, Additional history exists DEPRESSION SCREENING 07/17/2024 05/16/2023, 04/14/2023, 02/20/2023, Additional history exists INFLUENZA VACCINE (#1) 2025 4, 03/28/2023, 2022, Additional history exists PAP SMEAR 10/05/2026 10/06/2023, 05/10/2017 MAMMOGRAM 12/27/2026 12/27/2024, 12/15, 12/04/2023, Additional history exists SCREENING FOR DIABETES 07/29/2027 5, 07/29/2024, 07/28/2024, Additional history exists HEPATITIS C SCREENING Completed 09/27/2022 ZOSTER VACCINE Completed 07/14/2023, 05/04/2023 HEPATITIS B VACCINE Aged Out No longe [...] Patient-Stated? Author Mobility/ROM General Improving(06/16 10:19 AM TAVERN CAR ATTENDANT) Allie Isaacs, RN Note: Expected end date: ongoing The goal is to maintain or improve your mobility at the optimum level for you. Interventions: Medical Devices Implanted Type Area Sharples Machine Operator Device Identifier Shelf Expiration Date Model / Serial / Lot Screw 3.5mm 14mm 2.5mm Slf-Tap Sm Hex Implanted:Qty: 3 on 05/15/2020 by Allan Dooley, at [facility] Left: Ankle [employer] [id number] / / Plate 10 Hl Lck Lopro 2 Comp Slot Fib Lt Implanted:Qty: 1 on 05/15/2020 by Allan Dooley, at [facility] Left: Ankle [employer] [id number] / / Screw 3.5mm 60mm 2.7mm Slf-Tap Cortx Ss Implanted:Qty: 1 on 05/15/2020 by Allan Dooley DO at [facility] Left: Ankle [employer] [id number] / / Screw 2.7mm 16mm Lck Biodur 108 Nonster Implanted:Qty: 1 on 05/15/2020 by Allan Dooley DO at [facility] [employer] [id number] / / Screw 2.7mm 18mm Lck Elb Periart Ss Implanted:Qty: 3 on 05/15/2020 by Allan Dooley DO at [facility] [employer] [id number] / / Explanted Type Area Sharples Machine Operator Device Identifier Shelf Expiration Date Model / Serial / Lot Screw 3.5mm 65mm 2.7mm Slf-Tap Cortx Ss Explanted:Qty: 1 on 05/15/2020 by Allan Dooley DO at [facility] Left: Ankle [employer] [id number] / / Wire K 1.6mm 150mm 1 End Troc Pnt Ss Sm Explanted:Qty: 1 on 05/15/2020 by Allan Dooley DO at [facility] [employer] [id number] / / Procedures Procedure Name Priority Date/Time Associated Diagnosis Comments MN DRAIN/INJECT MEDIUM JOINT/BURSA Routine 11/27/2024 3:45 PM CDT Lateral epicondylitis of right elbow XR CERVICAL SPINE OUTSIDE Routine 11/13/2024 2:38 PM CDT BASIC METABOLIC PANEL (CALCIUM TOTAL) STAT 05/15/2020 9:22 AM CDT Closed fracture of left ankle with routine healing, subsequent encounter from Last 3 Months or Most Recently Relevant to Health Maintenance Results * MN DRAIN/INJECT MEDIUM JOINT/BURSA (11/27/2024 3:45 PM CDT) Narrative Dorys Haro PA-C - 11/27/2024 3:45 PM CDT Dorys Haro PA-C 11/27/2024 3:45 PM Injection elbow The patient was offered a cortisone injection into the right elbow. After discussing the risks and benefits of the procedure, the patient elected to proceed. After sterile preparation, the affected elbow was injected, into the right lateral epicondyle , with a combination in One Syringe: 1mL ropivacaine + 1ml Kenalog (40mg/mL). The patient tolerated the procedure well without complication. There was zero blood loss. us Dorys Haro PA-C PROCEDURE/MINOR SURGICAL ORD ERABLES Final Result * XR Cervical Spine Outside (11/13/2024 2:38 PM CDT) Narrative [facility] RADIOLOGY - 01/07/2025 11:48 AM CDT This is a study from an outside facility that has been uploaded into PACS. us Provider Digitize IMAGING Final Result [facility] * (ABNORMAL) BASIC METABOLIC PANEL (CALCIUM TOTAL) (05/15/2020 9:22 AM CDT) BUN 18 7 - 26 mg/dL 05/15/2020 9:58 AM CDT [facility] Creatinine 0.7 0.6 - 1.2 mg/dL 05/15/2020 9:58 AM CDT [facility] Sodium 138 136 - 145 mmol/L 05/15/2020 9:58 AM CDT [facility] Potassium 3.6 3.5 - 4.5 mmol/L 05/15/2020 9:58 AM CDT [facility] Chloride 102 98 - 107 mmol/L 05/15/2020 9:58 AM CDT [facility] CO2 26 22 - 29 mmol/L 05/15/2020 9:58 AM CDT [facility] Glucose 102 70 - 115 mg/dL 05/15/2020 9:58 AM CDT [facility] Calcium 9.4 8.4 - 10.2 mg/dL 05/15/2020 9:58 AM [facility] Anion Gap 14 8 - 18 05/15/2020 9:58 AM [facility] BUN/Creatinine Ratio 26(H) 7 - 23 05/15/2020 9:58 AM [facility] Osmolality Calculated 288 270 - 300 mOsm/kg 05/15/2020 9:58 AM [facility] eGFR >60 >60 mL/min/1.7 3 m2 05/15/2020 9:58 AM [facility] Blood BLOOD SPECIMEN / Unknown Venipuncture / Unknown 05/15/2020 9:22 AM CDT 05/15/2020 9:32 AM CDT Winnie Joy MD LAB - CHEMISTRY ORDERABLES Final Result [facility] [address] [place] [address], [facility] [phone] from Last 3 Months or Most Recently Relevant to Health Maintenance Insurance ANTHEM Care Teams Mechanical Energy Engineer Relationship Specialty Start Date End Date Ab Miller MD [address] [address] PCP - General Family Medicine 02/14/23 Patito Richey DO [address] [facility] [address] [place] [address] Cardiovascular Disease 05/29/24
--- OUTSIDE RECORDS SUMMARY | 2025-01-25 14:51 | XMS_ITS | Encounter Summary ---
Author Organization [facility] Address [address] [place] [address] Phone Care Team Providers Care Exceptional Children'S Teacher Name Role Phone Ab Miller MD Primary Care Provider Mert Addison MD Unavailable Ab Vega MD Unavailable Margoth Gunter MD Unavailable Encounter Details Date Type Department Care Team (Late st Contact Info) Description 11/15/2024 Transcribe Orders [facility] Scheduling [address] [place] [address] Jessica Tucker, ENGINE LATHE SET UP OPERATOR, ARCHITECTURAL PROJECT MANAGER [address] [place] [address] Social History Tobacco Use Types Packs/Day Years Used Date Smoking Tobacco: Never Smokeless Tobacco: Never Alcohol Use Standard Drinks/Week Comments Yes 0 (1 standard drink = 0.6 oz pur e alcohol) Rare [facility] Utilities Answer Date Recorded In the [...] How often do you attend chur or christian services? 1 to 4 times per year 10/07/2024 Do you belong to any clubs o r organizations such as restoration groups, unions, fraternal or athletic groups, or [...] Total Score - Questions 1-9 0 09/15 [facility] - Occupational Stress Questionnaire [...] place to sleep or slept in a long-term (including now)? No 10/02/2023 Housing Stability Vital Sign Answer Doug e Recorded In the last 12 months, was t here a time when you were not able to pay the mortgage or rent on time? No 10/07/2024 In the past 12 months, how m any times have you moved where you were living? 0 10/07/2024 At any time in the past 12 m [facility], were you homeless or living in a long-term (including now)? No 10/07/2024 Education Answer Date Recorded What is the highest level of school you have completed or the highest degree you have received? 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 [address] [place] [address] Ab Miller MD #2 [facility] [address] [place] [address] documented as of this encounter Visit Diagnoses Not on filedocumented in this encounter Additional Health Concerns Assessment Noted Time PHQ-9 Depression Total Score: 0 10/10/19 25 10:08 AM CDT documented as of this encounter Care Teams Exceptional Children'S Teacher Relationship Specialty Start Date End Date Ab Miller MD #[address] [address] PCP - General Family Medicine 08/28/19 Mert Addison MD #[address] [address] Gastroenterology 08/28/19 Ab Vega MD [address] [place] [address] Family Medicine 08/30/19 Margoth Gunter MD #[address] [address] Consulting Physician Orthopaedic Surgery 09/30/24 documented as of this encounter
--- OUTSIDE RECORDS SUMMARY | 2025-01-25 14:51 | XMS_ITS | Encounter Summary ---
Author Organization [facility] Address [address] [place] [address] Phone Care Team Providers Care Tip Cementer Name Role Phone Ab Miller MD Primary Care Provider Mert Addison MD Unavailable Ab Vega MD Unavailable Margoth Gunter MD Unavailable Encounter Details Date Type Department Care Team (Late st Contact Info) Description 11/18/2024 Transcribe Orders [facility] [address] [address] Ab Miller MD #[address] [address] Social History Tobacco Use Types Packs/Day Years Used Date Smoking Tobacco: Never Smokeless Tobacco: Never Alcohol Use Standard Drinks/Week Comments Yes 0 (1 standard drink = 0.6 oz pur e alcohol) Rare [facility] Utilities Answer Date Recorded In the past 12 months has [employer] electric, gas, oil, or water company threatened [...] often do you attend chur ch or sabianism services? 1 to 4 times per year 10/07/2024 Do you belong to any clubs o r organizations such as episcopalian groups, unions, fraternal or athletic groups, or [...] Total Score - Questions 1-9 0 09/15 [facility] of Occupat ional Health - Occupational Stress [...] place to sleep or slept in a [place] facility (including now)? No 10/02/2023 Housing Stability Vital Sign Answer Doug e Recorded In the last 12 months, was t here a time when you were not able to pay the mortgage or rent on time? No 10/07/2024 In the past 12 months, how m any times have you moved where you were living? 0 10/07/2024 At any time in the past 12 m [facility], were you homeless or living in a [place] health [place] facility (including now)? No 10/07/2024 Education Answer Date Recorded What is the highest level of school you have completed or the highest degree you have received? 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 [address] [place] [address] documented as of this encounter Visit Diagnoses Not on filedocumented in this encounter Additional Health Concerns Assessment Noted Time PHQ-9 Depression Total Score: 0 10/10/19 25 10:08 AM CDT documented as of this encounter Care Teams Tip Cementer Relationship Specialty Start Date End Date Ab Miller MD #2 [facility] [address] [place] [address] PCP - General Family Medicine 08/28/19 Mert Addison MD #[address] [address] Gastroenterology 08/28/19 Ab Vega MD [address] [place] [address] Family Medicine 08/30/19 Margoth Gunter MD #[address] [address] Consulting Physician Orthopaedic Surgery 09/30/24 documented as of this encounter
--- OUTSIDE RECORDS SUMMARY | 2025-01-25 14:51 | XMS_ITS | Encounter Summary ---
Author Organization [facility] Address [address] [place] [address] Phone Care Team Providers Care Network Systems Operator Name Role Phone Ab Miller MD Primary Care Provider Mert Addison MD Unavailable Ab Vega MD Unavailable Margoth Gunter MD Unavailable Reason for Visit * Reason Comments Medication Refill Encounter Details Date Type Department Care Team (Late st Contact Info) Description 12/15/2020 Refill [facility] Family Medicine [facility] #2 [place] [phone] Ab Miller MD #[address] [address] Medication Refill Social History Tobacco Use Types [...] Sex Assigned at Female 09/12/2023 3:43 PM LAND SALES AGENT Legal Sex Female 9:54 AM LAND SALES AGENT Gender Identity Female 09/12/2023 3:43 PM LAND SALES AGENT Sexual Orientation Straight 09/12/2023 3: 43 PM LAND SALES AGENT Occupation Industry Job Start Date Job End [...] Info) Description 04/04/2025 9:00 AM CDT Lab [facility] #[address] [address] Lab [place] Lab/Ancillary 04/11/2025 11:00 AM CDT Office Visit [facility] - Family Medicine - [place] [address] [place] [address] Ab Miller MD #[address] [address] documented as of this encounter Visit Diagnoses Not on filedocumented in this encounter Additional Health Concerns Infection Onset Date Last Indicated Resolved Time COVID - 19 07/28/2024 07/28/2024 07/28/2024 11:4 0 AM LAND SALES AGENT Influenza 07/28/2024 07/28/2024 08/04/2024 12:1 6 AM LAND SALES AGENT Assessment Noted Time PHQ-9 Depression Total Score: 0 09/09/19 9:07 AM LAND SALES AGENT documented as of this encounter Care Teams Network Systems Operator Relationship Specialty Start Date End Date Ab Miller MD #2 [facility] [address] [place] [address] PCP - General Family Medicine 08/28/19 Mert Addison MD #2 [facility] [address] [place] [address] Gastroenterology 08/28/19 Ab Vega MD [address] [place] [address] Family Medicine 08/30/19 Margoth Gunter MD #2 [facility] [address] [place] [address] Consulting Physician Orthopaedic Surgery 09/30/24 documented as of this encounter
--- OUTSIDE RECORDS SUMMARY | 2025-01-25 14:51 | XMS_ITS | Encounter Summary ---
Author Organization [facility] Address [address] [facility] [place] [address] Care Team Providers Care Linseed Oil Temperer Name Role Phone Ab Miller MD Primary Care Provider [phone] Patito Richey DO Unavailable [phone] Encounter Details Date Type Department Care Team (Late st Contact Info) Description 01/15/2025 Orders Only [facility] - Orthopedic Surgery [address] [place] [address] Brett Camacho MD [facility] [place] [address] Cervical spondylosis ; Cervical radiculopathy Social History Tobacco Use Types Packs/Day Years Used Date Smoking Tobacco: Never Passive Smoke Exposure: Never Smokeless Tobacco: Never Alcohol Use Standard Drinks/Week Comments Yes 1 [...] Date Recorded PHQ2 TOTAL SCORE 0 02/20/2023 [facility] [place] [facility] Occupat ional [facility] - Occupational Stress [...] place to sleep or slept in a snf (including now)? No 11/15/2022 Education Answer Date [...] Orientation Straight 11/15/2022 8: 25 AM CDT documented as of this encounter Plan of Treatment Upcoming Encounters Date Type Department Care Team (Late st Contact Info) Description 01/27/2025 2:15 PM CDT Office Visit [facility] - Orthopedic Surgery [address] [place] [address] Brett Camacho MD [address] [facility] DIV OF ORTHOPEDIC [place] [address] 01/27/2025 2:15 PM CDT Appointment [facility] - Orthopedics [address], [address] [place] [address] Brett Camacho MD [address] [facility] DIV OF ORTHOPEDIC [place] [address] 06/04/2025 10:30 AM ORDER ADMINISTRATOR Office Visit [facility] [address] [facility] [address] [place] [address] Patito Richey DO [address] [facility] [address] [place] [address] 07/23/2025 8:55 AM ORDER ADMINISTRATOR Hospital Encounter [facility] [address] [place] [phone] [place] [address] [place] [address] [address] DIV [place] [phone] Surgery General 07/23/2025 8:55 AM ORDER ADMINISTRATOR - 07/23/2025 9:45 AM ORDER ADMINISTRATOR Surgery [facility] [place] [address] [place] [address] [place] [address] [address] DIV [place] [address] COLONOSCOPY SCREEN w/ palagiri Scheduled Orders Name Type Priority Associated Diagnoses Orde r Schedule XR Cervical Spine 4 or 5Vw Imaging Routine Cervical spondylosis Cervical radiculopathy 1 Occurrences starting 01/15/2025 until 01/15/2026 Scheduled Procedures Name Priority Associated Diagnoses Date/Ti me COLONOSCOPY SCREEN Screen for colon cancer 07/23/2025 8:55 AM ORDER ADMINISTRATOR documented as of this encounter Goals Goal Patient Goal Type Associated Problems Recent Progress Patient-Stated? Author Mobility/ROM General Improving(06/16 10:19 AM ORDER ADMINISTRATOR) Allie Isaacs, RN Note: Expected end date: ongoing The goal is to maintain or improve your mobility at the optimum level for you. Interventions: documented as of this encounter Visit Diagnoses Diagnosis Cervical spondylosis- Primary Cervical spondylosis without myelopathy Cervical radiculopathy Brachial neuritis or radiculitis nos Screen for colon cancer Special screening for malignant neoplasms, colon documented in this encounter Care Teams Linseed Oil Temperer Relationship Specialty Start Date End Date Ab Miller MD [address] [place] [id number] PCP - General Family Medicine 02/14/23 Patito Richey DO [address] [address] Cardiovascular Disease 05/29/24 documented as of this encounter
--- OUTSIDE RECORDS SUMMARY | 2025-01-25 14:51 | XMS_ITS | Encounter Summary ---
Author Organization [facility] Address [address] [place] [address] Phone Care Team Providers Care Internist Medical Doctor Md Name Role Phone Ab Miller MD Primary Care Provider Mert Addison MD Unavailable Ab Vega MD Unavailable Margoth Gunter MD Unavailable Reason for Visit * Reason Comments Medication Refill Encounter Details Date Type Department Care Team (Late st Contact Info) Description 03/12/2023 Refill [facility] - Family Medicine [facility] [address] [place] [phone] Ab Miller MD #[address] [address] Medication Refill Social History Tobacco Use Types [...] Sex Assigned at Female 09/12/2023 3:43 PM 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 documented in this encounter Plan of Treatment Upcoming Encounters Date Type Department Care Team (Late st Contact Info) Description 04/04/2025 9:00 AM CDT Lab [facility] #[address] [address] [facility] [place] Lab/Ancillary 04/11/2025 11:00 AM CDT Office Visit [facility] - Family Medicine - [place] [address] [place] [address] Ab Miller MD #[address] [address] documented as of this encounter Visit Diagnoses Not on filedocumented in this encounter Additional Health Concerns Infection Onset Date Last Indicated Resolved Time COVID - 19 07/28/2024 07/28/2024 07/28/2024 11:4 0 AM FLAMER SEALER Influenza 07/28/2024 07/28/2024 08/04/2024 12:1 6 AM FLAMER SEALER Assessment Noted Time PHQ-9 Depression Total Score: 0 09/28/19 23 9:00 AM CDT documented as of this encounter Care Teams Internist Medical Doctor Md Relationship Specialty Start Date End Date Ab Miller MD #[address] [address] PCP - General Family Medicine 08/28/19 Mert Addison MD #[address] [address] Gastroenterology 08/28/19 Ab Vega MD [address] [place] [address] Family Medicine 08/30/19 Margoth Gunter MD #[address] [address] Consulting Physician Orthopaedic Surgery 09/30/24 documented as of this encounter
--- OUTSIDE RECORDS SUMMARY | 2025-01-25 14:51 | XMS_ITS | Encounter Summary ---
Author Organization [facility] Address [address] [place] [address] Phone Care Team Providers Care Drainage Design Coordinator Name Role Phone Ab Miller MD Primary Care Provider [phone] Mert Addison MD Unavailable Ab Vega MD Unavailable [phone] Margoth Gunter MD Unavailable Reason for Visit * Reason Comments Medication Refill Encounter Details Date Type Department Care Team (Late st Contact Info) Description 04/17/2023 [facility]ill [facility] [place] [phone] Ab Miller MD #[address] [address] Medication Refill Social History Tobacco Use Types [...] Sex Assigned at Female 09/12/2023 3:43 PM RECEIVING OPERATOR Legal Sex Female 9:54 AM RECEIVING OPERATOR Gender Identity Female 09/12/2023 3:43 PM RECEIVING OPERATOR Sexual Orientation Straight 09/12/2023 3: 43 PM RECEIVING OPERATOR Occupation Industry Job Start Date Job End [...] Info) Description 04/04/2025 9:00 AM CDT Lab [facility] #[address] [address] [facility] Lab/Ancillary 04/11/2025 11:00 AM CDT Office Visit [facility] - Family Medicine - [place] [address] [place] [address] Ab Miller MD #[address] [address] documented as of this encounter Visit Diagnoses Not on filedocumented in this encounter Additional Health Concerns Infection Onset Date Last Indicated Resolved Time COVID - 19 07/28/2024 07/28/2024 07/28/2024 11:4 0 AM RECEIVING OPERATOR Influenza 07/28/2024 07/28/2024 08/04/2024 12:1 6 AM RECEIVING OPERATOR Assessment Noted Time PHQ-9 Depression Total Score: 0 09/28/19 23 9:00 AM CDT documented as of this encounter Care Teams Drainage Design Coordinator Relationship Specialty Start Date End Date Ab Miller MD #[address] [address] PCP - General Family Medicine 08/28/19 Mert Addison MD #2 [facility] [address] [place] [address] Gastroenterology 08/28/19 Ab Vega MD [address] [place] [address] [address] [place] [address] Family Medicine 08/30/19 Margoth Gunter MD #2 [facility] [address] [place] [address] Consulting Physician Orthopaedic Surgery 09/30/24 documented as of this encounter
--- OUTSIDE RECORDS SUMMARY | 2025-01-25 14:55 | XMS_ITS | Continuity of Care Document ---
Author Organization [facility] Address [address] [place] [phone] Phone Care Team Providers Care Bowling Ball Weigher And Packer Name Role Phone Immunization, [facility] Unavailable Unavailable [...] Date Provider Providers Copied on Encounter [facility], [address] [place] [address], [id number], tel:[phone] Will [facility] Imms Travel No Information 9 Immunization [facility]. [address] [place] [address], [id number]. tel:[phone] TRAVEL IMM CONSULTATION [facility], [address] [place] [address], [id number], [place] tel:[phone] Will [facility] Imms Travel No Information 9 Immunization [facility]. [address] [place] [address], [id number]. tel:[phone] Family History Family Member Type Diagnosis Age At Onset No Information Payers Payer name Insurance type Covered alliance party ID Authoriza tiheidi(s) [facility] [id number] Social History Type Description Quantity Date Captured [...]
[2025-01-25 14:59] VITALS: BP 144/100; PULSE 94; RESP 16; TEMP 36.2; O2SAT 98
--- NOTE | 2025-01-25 15:00 | ED_ITS ---
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 Patient states that she has had this rash the past last time was about a year and half ago. 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 Patient states she has been using a topical steroid for the past couple of days but wanted to come and get it checked out patient was in a bacterial infection. Denies fevers body aches or chills. Patient states she has recently went to her doctor and had some blood work about 3 weeks ago that does show elevated T3 and she is on current thyroid medication and also had elevated CRP levels. Patient was told to stop gluten and dairy to see if there has helped pick some inflammatory markers that were seen on her blood work but she has not started the diet yet. Patient states the rash does get worse and he and she has been taking colder lukewarm showers. Patient denies it the rash being in the axle vagina and denies any discharge at this time. Related Data Home Medications ?Medication ?Instructions ?Recorded ?Confirmed ?Last Taken ?Type duloxetine 30 mg capsule,delayed 30 mg PO DAILY 05/01/20 03/01/22 Unknown History release (Cymbalta) duloxetine 60 mg capsule,delayed 60 mg PO DAILY 05/01/20 03/01/22 Unknown History release (Cymbalta) levothyroxine 100 mcg capsule 100 mcg PO DAILY 05/01/20 03/01/22 Unknown History montelukast 10 mg tablet 10 mg PO DAILY 05/01/20 03/01/22 Unknown History (Singulair) aspirin 81 mg capsule 81 mg PO DAILY 03/01/22 03/01/22 Unknown History famotidine 20 mg tablet 20 mg PO DAILY 03/01/22 03/01/22 Unknown History triamcinolone acetonide 0.1 % 0.1 applic topical DIRECTED 03/01/22 03/01/22 Unknown History topical cream atorvastatin 20 mg tablet mg 01/25/25 Unknown History carvedilol 3.125 mg tablet mg 01/25/25 Unknown History carvedilol 6.25 mg tablet mg 01/25/25 Unknown History clobetasone 01/25/25 Unknown History escitalopram oxalate 10 mg tablet mg 01/25/25 Unknown History gabapentin 100 mg capsule mg 01/25/25 Unknown History gabapentin 300 mg capsule mg 01/25/25 Unknown History levothyroxine 100 mcg tablet mcg 01/25/25 Unknown History lubiprostone 24 mcg capsule mcg PO 01/25/25 Unknown History Allergies Allergy/AdvReac Type Severity Reaction Status Date / Time bupropion (From Wellbutrin) Allergy Rash Verified 05/01/20 15:09 carbamazepine (From Tegretol) Allergy BARBIE Verified 05/01/20 15:09 CHARI SYNDROME sulfamethoxazole (From Allergy Rash Verified 05/01/20 15:09 Bactrim) terbinafine (From Lamisil) Allergy Rash Verified 05/01/20 15:09 tramadol Allergy Dizziness Verified 05/01/20 15:09 trimethoprim (From Bactrim) Allergy Rash Verified 05/01/20 15:09 Review of Systems Review of Systems: CONSTITUTIONAL: Denies fever, chills, or sweats. EYES: Denies visual changes, redness, or discharge. ENT: Denies rhinorrhea, congestion, sore throat, or otalgia. CARDIOVASCULAR: Denies chest pain, palpitations, or edema. RESPIRATORY: Denies cough or dyspnea. GASTROINTESTINAL: Denies abdominal pain, nausea, vomiting, or diarrhea. GENITOURINARY: Denies dysuria or hematuria. SKIN: Has a rash with itching to inner thighs and upper pelvic area.. MUSCULOSKELETAL: Denies back pain, joint pain, or myalgia. NEUROLOGIC: Denies headache, numbness, or weakness. PSYCHIATRIC: Denies anxiety or depression. [facility] Past Medical History Medical History Open fibular fracture surgical reduction Asthma Hypothyroid Anxiety Depression Surgical History Surgical History History of exploratory laparotomy bowel obstructin/ ileus History of appendectomy Family History Family History Mother Hypertension Other Heart disease Social History Social History (Reviewed 01/25/25 @ 15:00 by SURESH Buchanan Smoking status: Never smoker Alcohol intake: current Alcohol use details: rare use Substance use type: does not use Living arrangements: with family Gender identity (if verbalized by the patient): Female Comments At the time of my signature I agree with nursing past medical history, surgical, social, and family history. There is no relevant family history pertinent to the presenting complaint. Exam Narrative: GENERAL: Well-appearing, well-nourished, and in no acute distress. HEAD: Normocephalic, atraumatic. EYES: PERRLA and EOMI. ENT: Nares clear, no rhinorrhea or epistaxis. Mucous membranes moist. NECK: Supple. No lymphadenopathy CHEST: Clear to auscultation. No respiratory distress. HEART: Regular rate and rhythm. No murmur heard. Normal peripheral pulses. ABDOMEN: Soft, nontender, nondistended, normal active bowel sounds. EXTREMITIES: Normal range of motion. No edema. SKIN: Warm, dry, Patient has rash noted to bilateral inner thighs and upper pubic area that extend to the lower abdomen. There is rash is circular with a clearing to the middle and erythemic noted to the border. There is no discharge present the rash is flat no raised papules noted. NEURO: No focal deficits. Alert and oriented x3. Course Course Level of Care: Express Care Visit Vital Signs Vital signs: Vital Signs Temperature 36.2 C L 01/25/25 14:59 Pulse Rate 94 01/25/25 14:59 Respiratory Rate 16 01/25/25 14:59 Blood Pressure 144/100 H 01/25/25 14:59 Pulse Oximetry 98 01/25/25 14:59 Oxygen Delivery Room Air 01/25/25 14:59 Temperature 36.2 C L 01/25/25 14:59 Pulse Rate 94 01/25/25 14:59 Respiratory Rate 16 01/25/25 14:59 Blood Pressure 144/100 H 01/25/25 14:59 Pulse Oximetry 98 01/25/25 14:59 Oxygen Delivery Room Air 01/25/25 14:59 Vital signs reviewed. The patient has been informed that they may have pre-hypertension or Hypertension based on a BP reading in the department. I recommend that the patient call the primary care provider listed on their discharge instructions or a physician of their choice this week to arrange follow up for further evaluation of possible pre-hypertension or Hypertension Medical Decision Making MDM Narrative Medical decision making narrative: Discussed with patient that this does appear to be a fungal rash especially since it does get worse with heat. Discussed with patient she can continue doing her topical antifungal cream that she currently has however I will go ahead and prescribe her a wait and see prescription for fluconazole especially if it does not continue to improve. Discussed with patient she needs to give it at least 4 weeks with the antifungal cream to see improvement. Also discussed with her to try and change her diet go on an anti inflammatory diet increase her probiotics to help with reoccurring rashes. Patient verbalized understanding recommend that she follow-up with her primary doctor for further evaluation as needed. Differential Diagnosis Differential Diagnosis: Differential diagnosis: Uncomplicated lower UTI, uncomplicated UTI, pyelonephritis Gonorrhea, chlamydia, Trichomonas, bacterial vaginosis, herpes, HIV, yeast infection, urinary tract infection. Vital Signs Vital Signs: Vital Signs Temperature 36.2 C L 01/25/25 14:59 Pulse Rate 94 01/25/25 14:59 Respiratory Rate 16 01/25/25 14:59 Blood Pressure 144/100 H 01/25/25 14:59 Pulse Oximetry 98 01/25/25 14:59 Oxygen Delivery Room Air 01/25/25 14:59 Temperature 36.2 C L 01/25/25 14:59 Pulse Rate 94 01/25/25 14:59 Respiratory Rate 16 01/25/25 14:59 Blood Pressure 144/100 H 01/25/25 14:59 Pulse Oximetry 98 01/25/25 14:59 Oxygen Delivery Room Air 01/25/25 14:59 Critical Care Time Critical Care Time Critical Care Time: No Discharge Plan Discharge Clinical Impression: Tinea corporis Patient Disposition: Home Condition: Stable Instructions: Antibiotic Form, Tinea Corporis (ED), Skin Yeast Infection (ED) Additional Instructions: Tinea corporis is also called ringworm of the body, but it?s not caused by a worm. It?s a fungus infection. A fungus is a germ that?s too small to see. It gets its name from the ring or [place]uk it makes on the body. Ringworm is contagious. That means it spreads easily. A child can get it when their skin comes in contact with: The rash of a person who has it.An object used by an infected person.An infected animal, like a dog, kitten, or rodent. Signs and Symptoms Ringworm starts as a rash with tiny red pimples. The pimples slowly spread and form a ?- to 1-inch round or oval ring. The ring?s edges are red, raised, or scaly. The skin inside the ring may look pink or almost normal.The rash usually appears in only a few places on the skin, but it may occur anywhere on the body and may itch.Ringworm doesn?t usually cause serious problems. Diagnosis The doctor or health care provider will diagnose ringworm based on your child?s health history and by looking at the rash. Sometimes they will scrape a few scales of skin from the ring and send it for testing. Treatment A single patch of ringworm can be treated with an dxql-[id number] (OTC) antifungal cream. Creams usually contain clotrimazole, ketoconazole, econazole, tolnaftate, or terbinafine. If there are many patchy areas, your child may need a prescription cream, or oral antifungal medicine taken by mouth. Read the medicine label or ask your doctor or pharmacist if the cream you choose is safe for your child.Ask how often the cream should be applied and for how many days. Usually, treatment is for 4 weeks or 2 weeks after the skin lesion goes away.Athletes, like wrestlers, with tinea corporis can take part in matches 72 hours after starting treatment and when the area can be covered.Ringworm usually goes away within 4 weeks of treatment. Your child can return to daycare or school after starting treatment. How to Put on the Antifungal Cream Wash and dry your hands.Wash the rash with soap and water in a bathtub, bathroom sink, or kat. Do not use a kitchen sink to wash the rash.Dry the rash completely with a paper towel or clean cloth towel. Do not touch skin that is not infected with this towel. If a cloth towel is used, wash it before using again.Apply a thin layer of cream just past the outside edges of the rash.Spread the cream, beginning from the outside area first, then move toward the center of the rash ( Picture 1).Do not cover the ringworm with a bandage.Wash and dry your hands well. How to Prevent Ringworm The fungus grows well on warm, dark, moist areas of the body. To prevent ringworm from spreading to others: Keep your child?s skin clean and dry. Dry their skin well after washing or bathing.Anyone that touches a ringworm rash, must wash their hands well and right away.Wear clean clothes and change socks and underwear each day.Don?t let your child share clothes, towels, stuffed toys, or personal items like brushes, barrow, and barrettes with others.Wash and dry clothing and towels that have touched the rash. Use the hottest setting allowed on the care labels.Wash the bathtub, bathroom sink, or kat well after each use.Wash hands after playing with any animals. Check pets for ringworm and get them treated if needed.Wear shoes, like flip-flops, in locker rooms and in public showers.Shower right away after all contact sports, like wrestling and football. Patient Language: Yoruba Prescriptions: New fluconazole 150 mg tablet 150 mg PO ONCE Qty: 1 0RF Rx Instructions: as a single dose No Action carvedilol 6.25 mg tablet atorvastatin 20 mg tablet carvedilol 3.125 mg tablet levothyroxine 100 mcg tablet gabapentin 300 mg capsule gabapentin 100 mg capsule escitalopram oxalate 10 mg tablet lubiprostone 24 mcg capsule PO clobetasone montelukast [Singulair] 10 mg Tablet 10 mg PO DAILY duloxetine [Cymbalta] 30 mg Capsule,Delayed Release(Dr/Ec) 30 mg PO DAILY duloxetine [Cymbalta] 60 mg Capsule,Delayed Release(Dr/Ec) 60 mg PO DAILY levothyroxine 100 mcg Capsule 100 mcg PO DAILY triamcinolone acetonide 0.1 % cream 0.1 applic TOPICAL DIRECTED famotidine 20 mg Tablet 20 mg PO DAILY aspirin 81 mg Capsule 81 mg PO DAILY prednisone 10 mg tablet 10 mg PO DAILY Qty: 21 0RF Rx Instructions: 6 tabs day 1, 5 tabs day 2, 4 tabs day 3, 3 tabs day 4,2 tabs day 5 and 1 tab day 6 triamcinolone acetonide 0.1 % ointment 1 applic topical BID Qty: 80 0RF Rx Instructions: apply twice daily up to 14 days never apply to face Follow-up/Referrals: Paul,Ab Tracy MD [Primary Care Provider] - Time of Disposition: 15:54
== END 2025-01-25 16:00 | disposition home or self-care (01) ==
PROVIDERS: Emergency Provider Nurse Practitioner Family; PCP Internal Medicine
DX: B35.4 Tinea corporis (principal); E03.9 Hypothyroidism, unspecified; Z79.899 Other long term (current) drug therapy
CPT/HCPCS: 99213; G0463